=== PATIENT | female | born 1970 | race Caucasian/White ===

== ENCOUNTER → 2021-10-27 09:22 | Outpatient (BNVA) | payer OTHER, SELFPAY | PROVIDERS: PCP Nurse Practitioner Family; Visit Provider Nurse Practitioner Family | DX: J40 Bronchitis, not specified as acute or chronic (principal); R05.9 Cough, unspecified; R06.01 Orthopnea; R06.02 Shortness of breath | CPT/HCPCS: 71046; 80053 ==

== ENCOUNTER 2021-11-13 14:14 | Outpatient (CLI) | payer OTHER, SELFPAY ==
--- NOTE | 2021-11-13 14:18 | MM_ITS ---
WS: [id number] BILATERAL 3D TOMOSYNTHESIS DIGITAL SCREENING MAMMOGRAPHY WITH CAD CLINICAL INFORMATION: screening HISTORY: Screening mammogram. No current complaints. COMPARISON: None. TECHNIQUE: Bilateral CC and MLO views. FINDINGS: The breasts are composed of heterogeneous fibroglandular density tissue, which can limit the detectio n of small underlying mass lesions. Tiny diffuse punctate clustered and scattered calcifications midd le and anterior depth RIGHT breast with dense parenchymal tissue. Nodular dense parenchymal tissue wi th suggestion of architectural distortion upper quadrant RIGHT breast. Recommend further evaluation w ith diagnostic mammography and ultrasound. LEFT breast is unremarkable. MM/[place] [id number] IMPRESSION: BI-RADS: 0-Incomplete: Need additional imaging evaluation FOLLOW UP: Need Additional Imaging Recommend further evaluation with RIGHT breast diagnostic mammography with spot magnification views and ultrasound of the dense parenchymal tissue.
== END 2021-11-13 14:15 | disposition home or self-care (01) ==
PROVIDERS: PCP Nurse Practitioner Family; Visit Provider Nurse Practitioner Family
DX: Z12.31 Encounter for screening mammogram for malignant neoplasm of breast (principal)
CPT/HCPCS: 77063; 77067

== ENCOUNTER 2021-12-17 14:09 | Outpatient (CLI) | payer OTHER, SELFPAY ==
--- NOTE | 2021-12-17 14:20 | MM_ITS ---
WS: [id number] RIGHT 3D TOMOSYNTHESIS DIGITAL MAMMOGRAPHY WITH CAD CLINICAL INFORMATION: abnormal mammogram COMPARISON: November 13, 2021 TECHNIQUE: 3 views of the right breast were obtained. FINDINGS: Scattered fibroglandular densities of the right breast. Again seen are the tiny diffuse punctate clus tered and scattered calcifications middle and anteriore depth RIGHT breast. Punctate and amorphous ca lcifications anterior depth RIGHT breast upper outer quadrant. Additional faint clustered calcificati ons central RIGHT breast. Recommend stereotactic guided biopsy of the calcifications. The anterior depth upper outer quadrant c alcifications will probably be more accessible. This can be determined at the time of stereotactic lo calization. ULTRASOUND BREAST RIGHT TECHNIQUE: Ultrasound right breast focused area of concern. CLINICAL INFORMATION: abnormal mammogram FINDINGS: Ultrasound RIGHT breast at the 8 to 12:00 position. Dense underlying parenchymal tissue. No suspiciou s cystic or solid lesions. Incidental ductal ectasia deep to the areola. No suspicious ultrasound les ions to target for biopsy. MM/[place] [id number] IMPRESSION: BI-RADS: 4-Suspicious Finding-Biopsy Should Be Considered FOLLOW UP: Stereotactic Biopsy Recommended Recommend stereotactic guided biopsy calcifications upper outer quadrant anteri or depth RIGHT breast.
== END 2021-12-17 14:10 | disposition home or self-care (01) ==
LOC: RAD 14:09
PROVIDERS: PCP Nurse Practitioner Family; Visit Provider Nurse Practitioner Family
DX: R92.8 Other abnormal and inconclusive findings on diagnostic imaging of breast (principal); R92.1 Mammographic calcification found on diagnostic imaging of breast
CPT/HCPCS: 76642; 77061

== ENCOUNTER 2021-12-29 12:07 | Outpatient (CLI) | payer OTHER, SELFPAY ==
--- NOTE | 2021-12-29 12:29 | MM_ITS ---
WS: [id number] STEREOTACTIC RIGHT BREAST BIOPSY WITH VACUUM ASSISTANCE HISTORY: Calcifications upper outer quadrant. COMPARISON: 12/17/2021, 11/13/2021 and 07/22/2020 Procedure, risks and complications were explained to the patient. Medications and prior radiographs a re reviewed. RIGHT breast calcifications are located. Numerous calcifications are identified in the upper outer qu adrant of the RIGHT breast. The cluster of calcifications that is most concerning is targeted. Calcif ications are targeted in the craniocaudal projection. The skin is cleansed with ChloraPrep and anesth etized with 1% buffered lidocaine. Deeper soft tissues anesthetized with a combination of lidocaine a nd epinephrine. Small dermatome is made. Needle advanced into the RIGHT breast. Stereotactic imaging reveals appropriate positioning adjacent calcifications. Multiple vacuum-assisted core biopsies are o btained. No complications were encountered. Post biopsy specimen radiograph reveals numerous calcifications. Biopsy clip is placed in the cavity. Post imaging reveals good placement of the clip. No migration. Pressures held for approximately 15 minutes. No bleeding. Dressing applied. Patient discharged with n o complications. There is no bleeding. With any questions or complications patient is to return. MM/MM [place] vac assist [id number] IMPRESSION: 1. Uncomplicated RIGHT breast stereotactic biopsy. Calcifications which are mo st concerning in the RIGHT upper quadrant are targeted. 2. Specimen contains numerous calcifications. Pathology: Benign breast tissue with fibrocystic changes and usual ductal hyper plasia. Multiple foci of microcalcifications identified. No atypia or malignanc y. RECOMMENDATION: Diagnostic RIGHT mammogram follow-up in 6 months.
--- NOTE | 2021-12-29 12:29 | MM_ITS ---
WS: [id number] STEREOTACTIC RIGHT BREAST BIOPSY WITH VACUUM ASSISTANCE HISTORY: Calcifications upper outer quadrant. COMPARISON: 12/17/2021, 11/13/2021 and 07/22/2020 Procedure, risks and complications were explained to the patient. Medications and prior radiographs a re reviewed. RIGHT breast calcifications are located. Numerous calcifications are identified in the upper outer qu adrant of the RIGHT breast. The cluster of calcifications that is most concerning is targeted. Calcif ications are targeted in the craniocaudal projection. The skin is cleansed with ChloraPrep and anesth etized with 1% buffered lidocaine. Deeper soft tissues anesthetized with a combination of lidocaine a nd epinephrine. Small dermatome is made. Needle advanced into the RIGHT breast. Stereotactic imaging reveals appropriate positioning adjacent calcifications. Multiple vacuum-assisted core biopsies are o btained. No complications were encountered. Post biopsy specimen radiograph reveals numerous calcifications. Biopsy clip is placed in the cavity. Post imaging reveals good placement of the clip. No migration. Pressures held for approximately 15 minutes. No bleeding. Dressing applied. Patient discharged with n o complications. There is no bleeding. With any questions or complications patient is to return. MM/MM surgical specimen RT IMPRESSION: 1. Uncomplicated RIGHT breast stereotactic biopsy. Calcifications which are mo st concerning in the RIGHT upper quadrant are targeted. 2. Specimen contains numerous calcifications. Pathology: Benign breast tissue with fibrocystic changes and usual ductal hyper plasia. Multiple foci of microcalcifications identified. No atypia or malignanc y. RECOMMENDATION: Diagnostic RIGHT mammogram follow-up in 6 months.
== END 2021-12-29 12:08 | disposition home or self-care (01) ==
PROVIDERS: PCP Nurse Practitioner Family; Visit Provider Nurse Practitioner Family
DX: R92.1 Mammographic calcification found on diagnostic imaging of breast (principal); N62 Hypertrophy of breast
CPT/HCPCS: 19081; 88305; 88342; J7050

== ENCOUNTER 2022-02-10 13:26 | Outpatient (CLI) | payer OTHER, SELFPAY ==
--- NOTE | 2022-02-10 15:15 | USCV_ITS ---
Debbie Smith Age: 51 Gender: F : 1970 Exam Date: 02/10/2022 16:01 Ordering Phys: Alice Gomez MD ([email or web address]) Technologist: Sam Steward Exam Location: [facility] [place] Indication: SOB BP: 136 / 94 HR: 157 Rhythm: Atrial fibrillation Technical Quality: Technically difficult study MEASUREMENTS (Male / Female) Normal Values 2D ECHO LV Diastolic Diameter PLAX 3.2 cm 4.2 - 5.9 / 3.9 - 5.3 cm LV Systolic Diameter PLAX 2.9 cm IVS Diastolic Thickness 1.3 cm 0.6 - 1.0 / 0.6 - 0.9 cm IVS Systolic Thickness 1.5 cm LVPW Diastolic Thickness 1.7 cm 0.6 - 1.0 / 0.6 - 0.9 cm LVPW Systolic Thickness 1.6 cm LVOT Diameter 2.0 cm LV Ejection Fraction 2D Teich 23.8 % LV Ejection Fraction MOD 2C 18.5 % LV Ejection Fraction 2C AL 12.4 % LA Diameter 3.1 cm LA Width 3.3 cm LA Height 3.7 cm RA Width 3.1 cm RA Height 4.2 cm Aorta at Sinotubular Diameter 2.1 cm IVC Diameter 1.9 cm M-MODE Aortic Annulus Diameter 2.5 cm LA Ao Ratio MM 1.2 MV E Point Septal Separation 1.7 cm DOPPLER AV Peak Velocity 168.0 cm/s LVOT Peak Velocity 118.0 cm/s AV Area Cont Eq vti 2.2 cm squared AV Area Cont Eq pk 2.2 cm squared MV Peak Velocity 173.0 cm/s MV Area PHT 3.7 cm squared Mitral E to A Ratio 2.0 MV E' Velocity 67.5 cm/s Mitral E to MV E' Ratio 17.3 Mitral E to LV E' Lateral Ratio 17.1 Mitral E to LV E' Septal Ratio 17.6 TR Peak Velocity 287.6 cm/s TR Peak Gradient 33.1 mmHg TR Mean Velocity 233.3 cm/s TR Mean Gradient 23.5 mmHg TR Velocity Time Integral 73.5 cm Right Atrial Pressure 3.0 mmHg Pulmonary Artery Systolic Pressu 36.1 mmHg PV Peak Velocity 99.7 cm/s RV Acceleration Time 0.1 s RV Ejection Time 0.2 s RV AcT/ET 0.5 FINDINGS Left Ventricle Normal left ventricular cavity size. Severely decreased left ventricular systolic function. Left ventricular ejection fraction is estimated at 25-30 %. Global left ventricular hypokinesis. Interpretation limited by tachycardia during the study. Rhythm precludes evaluation of diastolic function. Right Ventricle Normal right ventricular size and systolic function. Right ventricular systolic pressure 20 mmHg. Right Atrium Normal right atrial size. Left Atrium Probably mildly increased left atrial size. Mitral Valve Moderate mitral annular calcification. Thickened mitral valve. Mild mitral valve regurgitation. Aortic Valve Aortic valve not well visualized. Mild aortic valve regurgitation. Tricuspid Valve Tricuspid valve not well visualized. Trace to mild tricuspid valve regurgitation. Pulmonic Valve Pulmonic valve not well visualized. No pulmonary valve stenosis. Trace pulmonary valve regurgitation. Pericardium No pericardial effusion. Aorta Aorta not well visualized. IVC Normal IVC dimension with >50% respiratory change of the inferior vena cava. CONCLUSIONS 1. This is a technically difficult study. 2. Normal left ventricular cavity size. Severely decreased left ventricular systolic function. Left ventricular ejection fraction is estimated at 25-30 %. Global left ventricular hypokinesis. Interpretation limited by tachycardia during the study. 3. Mild mitral valve regurgitation. 4. Mild aortic valve regurgitation. 5. No prior similar studies to compare. Alice Gomez MD (Electronically Signed) Final Date: 15 February 2022 11:04 S
--- NOTE | 2022-02-10 17:06 | ECG_ITS ---
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 Measurements Intervals [place] Rate: 157 P: 0 [place]: 0 QRS: -50 QRSD: 150 T: 95 QT: 291 QTc: 470 Interpretive Statements ATRIAL FIBRILLATION WITH RAPID VENTRICULAR RESPONSE INTRAVENTRICULAR CONDUCTION DELAY [130+ ms QRS DURATION] No previous ECG available for comparison Electronically Signed On 02-10-2022 18:05:13 TEXTILE DESIGNS SALES REPRESENTATIVE by Michael Valentine M.D. [email or web address] Messengermemorial hospital at stone countyVINTAGEHUBlima city hospitalARC Medical Devices/store/OM/[id number]
== END 2022-02-10 13:27 | disposition home or self-care (01) ==
PROVIDERS: PCP Nurse Practitioner Family; Visit Provider Internal Medicine Cardiovascular Disease
DX: R06.02 Shortness of breath (principal); R00.0 Tachycardia, unspecified; I08.0 Rheumatic disorders of both mitral and aortic valves
CPT/HCPCS: 93005; 93306; 94060; 94726; 94729; J7613

== ENCOUNTER 2022-03-08 12:40 | Emergency (ER) | payer OTHER, SELFPAY ==
[2022-03-08] VITALS (53 sets, daily range): BP systolic 121–155; BP diastolic 75–102; PULSE 100; RESP 14–19; TEMP 36.5; O2SAT 94–100; BMI 35.6
--- NOTE | 2022-03-08 13:15 | ECG_ITS ---
[facility] Test Date: 2022-03-08 Pat Name: Debbie Smith Department: Room: Gender: Female It Systems Manager: : 1970 Requested By: Alec Tariq Order Number: [id number] Ilana MD: Alice Gomez M.D. Measurements Intervals [place] Rate: 90 P: 0 ID: 0 QRS: -56 QRSD: 97 T: 87 QT: 403 QTc: 496 Interpretive Statements ATRIAL FLUTTER/TACHYCARDIA INCOMPLETE RIGHT BUNDLE BRANCH BLOCK [90+ ms QRS DURATION, TERMINAL R IN V1/V2, 40+ ms S IN I/aVL/V4/V5/V6] LEFT ANTERIOR FASCICULAR BLOCK [QRS AXIS <= -45, QR IN I, RS IN II] POSSIBLE ANTERIOR MYOCARDIAL INFARCTION , OF INDETERMINATE AGE [30 ms Q WAVE IN V3/V4, OR R < 0.2 mV IN V4] Compared to ECG 02/10/2022 17:41:34 Incomplete right bundle-branch block now present Left anterior fascicular block now present Myocardial infarct finding now present Atrial fibrillation no longer present Intraventricular conduction delay no longer present Electronically Signed On 03-08-2022 15:29:12 MANAGER APPLIED by Alice Gomez M.D. [email or web address] arms hospital.The NewsMarket/store/NU/[id number] f
--- NOTE | 2022-03-08 13:56 | XRR_ITS ---
PROCEDURE INFORMATION: Exam: XR Chest Exam date and time: 03/08/2022 2:22 PM Age: 52 years old Clinical indication: Chest pressure/pain. Shortness of breath. TECHNIQUE: Imaging protocol: Radiologic exam of the chest. Views: 1 view. COMPARISON: CR XR chest 2V* [id number] 10/27/2021 9:30 AM FINDINGS: Lungs: There is mild peribronchial wall thickening. No pulmonary consolidation. Pleural spaces: No pleural effusion. No pneumothorax. Heart/Mediastinum: A prosthetic cardiac valve is seen. The cardiac silhouette is unchanged. No gross evidence of pneumomediastinum. Diaphragm: Mild elevation of the right hemidiaphragm is similar to prior. Bones/joints: Median sternotomy wires are noted. No gross fracture. XR/XR chest 1V portable [id number] IMPRESSION: There is mild peribronchial wall thickening; query viral infection/bronchitis, chronic bronchitis and/or asthma.
--- NOTE | 2022-03-08 13:57 | ECG_ITS ---
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 Measurements Intervals [place] Rate: 98 P: 0 [place]: 0 QRS: -58 QRSD: 93 T: 90 QT: 380 QTc: 486 Interpretive Statements ATRIAL FLUTTER INCOMPLETE RIGHT BUNDLE BRANCH BLOCK [90+ ms QRS DURATION, TERMINAL R IN V1/V2, 40+ ms S IN I/aVL/V4/V5/V6] LEFT ANTERIOR FASCICULAR BLOCK [QRS AXIS <= -45, QR IN I, RS IN II] Compared to ECG 03/08/2022 12:59:05 Myocardial infarct finding no longer present Electronically Signed On 03-08-2022 15:28:24 SOCIETY EDITOR by Alice Gomez M.D. [email or web address]/store/[id number]
--- NOTE | 2022-03-08 13:58 | W.ED.CHESTPA ---
HPI - Chest Pain General: Chief Complaint: Chest Pain Stated Complaint: chest pressure, heart pt Time Seen by Provider: 03/08/22 13:35 History of Present Illness: Patient comes in with concerns for fatigue and chest pain. States that over the past few weeks she has had increasing weakness. States that anytime she gets up to do anything she becomes short of breath and has chest pain which she describes as a right-sided pressure. States that she was recently seen by cardiology and had an echo with a told her her ejection fraction was 25%. She denies any recent cold symptoms including no fever, cough, congestion. Associated symptoms: Reports dyspnea and palpitations; Deny abdominal pain, fever(s), nausea or vomiting Review of Systems Const: Denies: fever(s) or body aches Eyes: Denies: change in vision or blurry vision ENMT: Denies: throat pain or odynophagia Card: Reports: chest pain and palpitations Resp: Reports: dyspnea; Denies: productive cough GI: Denies: abdominal pain, nausea or vomiting : Denies: flank pain or dysuria Musc: Denies: neck pain or back pain Skin/Breast: Denies: rash or pruritus Neuro: Denies: headache(s) or numbness in extremities Psych: Denies: anxiety or change in appetite Endo: Denies: polyuria or excessive sweating PFSH ED PFSH: Medical History Diabetes mellitus Hyperlipidemia Surgical History H/O mitral valve repair (07/2017) History of cardiac radiofrequency ablation (12/2017) Family History Grandmother Myocardial infarction Other Cancer Diabetes Lung disease Social History Smoking and tobacco status: never smoked Household members: spouse Marital status: Current occupational status: employed Physical Exam Const: COMMON NORMALS: no acute distress, patient oriented x3, healthy appearing and alert HENMT: COMMON NORMALS: normocephalic and atraumatic HEAD & SCALP: normocephalic and atraumatic Eye: COMMON NORMALS: Equal, round and reactive pupils present and EOMs intact bilaterally PUPIL: Yes Equal, round and reactive pupils present Neck/C-Spine: COMMON NORMALS: full ROM and supple Resp: COMMON NORMALS: normal respiratory effort, No retractions and No use of accessory muscles Cardio: COMMON NORMALS: regular rate RATE: regular rate OTHER: regularly irregular rhythm GI: COMMON NORMALS: Normal to inspection, nondistended, normoactive bowel sounds present, Soft to palpation and non-tender PALPATION: Yes Soft to palpation Back/Pelvis: COMMON NORMALS: thoracic and lumbar spine normal to inspection and no thoracic nor lumbar tenderness Extremity: COMMON NORMALS: normal to inspection and full ROM Neuro: COMMON NORMALS: patient oriented x3 SENSORIUM/ORIENTATION: Yes alert Psych: COMMON NORMALS: mental status grossly normal and cooperative Skin: COMMON NORMALS: no rashes or lesions noted and no wounds GENERAL SKIN EXAM: no rashes or lesions noted Course Vital Signs: Vital signs: Vital Signs Temperature 97.7 F 03/08/22 12:47 Pulse Rate 100 03/08/22 12:47 Respiratory Rate 14 03/08/22 12:47 Blood Pressure 128/102 03/08/22 14:00 Pulse Oximetry 97 03/08/22 13:55 Oxygen Delivery Me thod 03/08/22 12:47 MDM - Chest Pain Medical Decision Making Patient comes in with concerns for fatigue and chest pain. States that over the past few weeks she has had increasing weakness. States that anytime she gets up to do anything she becomes short of breath and has chest pain which she describes as a right-sided pressure. States that she was recently seen by cardiology and had an echo with a told her her ejection fraction was 25%. She denies any recent cold symptoms including no fever, cough, congestion. We will check labs, EKG, x-ray, and reassess. On reassessment I talked to the patient about the test results. Will discharge home at this time with precautions return for worsening or changing symptoms. Lab Data 03/08/22 14:27 03/08/22 14:27 Radiology Impressions Chest X-Ray 03/08/22 13:56 IMPRESSION: There is mild peribronchial wall thickening; query viral infection/bronchitis, chronic bronchitis and/or asthma. Laboratory Results WBC 9.9 10^3/uL (4.0-10.0) 03/08/22 14:27 RBC 4.90 10^6/uL (4.1-5.3) 03/08/22 14: Hgb 12.4 g/dL (11.5-15.3) 03/08/22 14:27 Hct 40.1 % (37.0-47.0) 03/08/22 14:27 MCV 81.8 fl (81-99) 03/08/22 14:27 MCH 25.3 pg (28.0-34.0) L 03/08/22 14: MCHC 30.9 g/dL (30.0-36.0) 03/08/22 14: RDW 14.8 % (12.1-15.1) 03/08/22 14: Plt Count 277 10^3/cmm (130-400) 03/08/22 14: MPV 10.9 fL (7.4-10.4) H 03/08/22 14: Neut % (Auto) 63.3 % 03/08/22 14: Lymph % (Auto) 25.3 % 03/08/22 14:27 [place] % (Auto) 9.5 % 03/08/22 14:27 Eos % (Auto) 1.1 % 03/08/22 14: Baso % (Auto) 0.6 % 03/08/22 14: Neut # (Auto) 6.23 10^3/uL (1.8-7.7) 03/08/22 14:27 Lymph # (Auto) 2.5 10^3/uL (0.8-4.8) 03/08/22 14:27 [place] # (Auto) 0.9 10^3/uL (0.2-0.9) 03/08/22 14:27 Eos # (Auto) 0.1 10^3/uL (0.0-0.8) 03/08/22 14: Baso # (Auto) 0.1 10^3/uL (0.0-0.1) 03/08/22 14: Nucleated RBC % (auto) 0 % 03/08/22 14: Nucleated RBCs # 0.0 /100WBC 03/08/22 14:27 Sodium 137 mmol/L (136-145) 03/08/22 14:27 Potassium 4.4 mmol/L (3.5-5.1) 03/08/22 14:27 Chloride 101 mmol/L (98-107) 03/08/22 14:27 Carbon Dioxide 24 mmol/L (22-29) 03/08/22 14:27 Anion Gap 16.4 (5-19) 03/08/22 14:27 BUN 18 mg/dL (6-20) 03/08/22 14:27 Creatinine 0.8 mg/dL (0.5-0.9) 03/08/22 14:27 GFR Calculation 75.3 mL/min (90-130) L 03/08/22 14:27 Glucose 154 mg/dL (65-115) H 03/08/22 14:27 Calculated Osmolality 289 mOsm/kg (285-295) 03/08/22 14: Calcium 9.2 mg/dL (8.5-10.5) 03/08/22 14:27 Total Bilirubin 0.4 mg/dL (0.15-1.2) 03/08/22 14: AST 16 U/L (0-32) 03/08/22 14:27 ALT 16 U/L (0-33) 03/08/22 14:27 Alkaline Phosphatase 188 U/L (35-105) H 03/08/22 14:27 Troponin T Baseline 10 ng/L (0-10) 03/08/22 14:27 Troponin T 120 Minute 9.33 ng/L (0-10) 03/08/22 17:25 NT-Pro-B Natriuret Pep 825 pg/mL (0-125) H 03/08/22 14:27 Total Protein 6.7 g/dL (6.6-8.7) 03/08/22 14:27 Albumin 4.1 g/dL (3.5-5.2) 03/08/22 14:27 Globulin 2.6 g/dL (1.3-4.6) 03/08/22 14:27 Discharge Plan Discharge Patient Disposition: Home Clinical Impression: Chest pain on exertion Condition: Stable Prescriptions: No Action rosuvastatin [Crestor] 10 mg tablet 10 mg PO DAILY metformin 500 mg tablet 1,000 mg PO DAILY (DME) Dexcom G6 Rotary Saw Operator Misc See Rx Instructions .Route Rx Instructions: 120 units over 3 days (DME) Dexcom G6 Transmitter Device See Rx Instructions .Route Rx Instructions: As directed albuterol sulfate [ProAir HFA] 90 mcg/actuation HFA aerosol inhaler 2 puff inhalation QID PRN (Reason: shortness of breath or wheezing) Qty: 8.5 2RF diltiazem HCl 120 mg capsule,extended release 24 hr 240 mg PO DAILY acetaminophen [Tylenol] 325 mg tablet 325 mg PO QID PRN insulin lispro [Humalog U-100 Insulin] 100 unit/mL solution 100 unit SUBCUT DAILY budesonide-formoterol [Symbicort] 160-4.5 mcg/actuation HFA aerosol inhaler 2 puff inhalation BID PRN Eliquis 5 mg tablet 5 mg PO BID Qty: 180 3RF (DME) Omnipod 5 G6 Pods (Gen 5) Cartridge See Rx Instructions .Route Qty: 5 3RF Rx Instructions: As directed carvedilol 12.5 mg tablet 12.5 mg PO BID Qty: 60 6RF Rx Instructions: must administer with a meal/food Entresto 24-26 mg tablet 1 tab PO BID Qty: 60 6RF (DME) Dexcom G6 Sensor Device See Rx Instructions .Route Qty: 9 0RF Rx Instructions: As directed Discharge Orders: Discharge ED (Routine); Ordered 03/08/22 Ordered By: Aakash Almonte Referrals: Georgina Bonds NP [Primary Care Provider] - Patient Instructions: Chest Pain (ED) Coding Level of Care Code ED Personal Driver for Michaelg Fwd Exam Comprehensive
[2022-03-08 14:37] LABS: Basophils # 0.1 10^3/uL (0.0-0.1); Basophils % 0.6 %; Eosinophils # 0.1 10^3/uL (0.0-0.8); Eosinophils % 1.1 %; Hematocrit 40.1 % (37.0-47.0); Hemoglobin 12.4 g/dL (11.5-15.3); Lymphocytes # 2.5 10^3/uL (0.8-4.8); Lymphocytes % 25.3 %; Mean Corpuscular HGB Conc 30.9 g/dL (30.0-36.0); Mean Corpuscular Hemoglobin 25.3 pg (28.0-34.0); Mean Corpuscular Volume 81.8 fl (81-99); Mean Platelet Volume 10.9 fL (7.4-10.4); Monocytes # 0.9 10^3/uL (0.2-0.9); Monocytes % 9.5 %; Neutrophils # 6.23 10^3/uL (1.8-7.7); Neutrophils % 63.3 %; Nucleated Red Blood Cells % 0 %; Platelet Count 277 10^3/cmm (130-400); Red Cell Distribution Width 14.8 % (12.1-15.1); White Blood Count 9.9 10^3/uL (4.0-10.0)
[2022-03-08 15:02] LABS: Troponin(5th) Baseline 10 ng/L (0-10)
[2022-03-08 15:17] LABS: Alanine Aminotransferase 16 U/L (0-33); Albumin Level 4.1 g/dL (3.5-5.2); Alkaline Phosphatase 188 U/L (35-105); Anion Gap 16.4 (5-19); Aspartate Amino Transferase 16 U/L (0-32); Blood Urea Nitrogen 18 mg/dL (6-20); Calcium 9.2 mg/dL (8.5-10.5); Carbon Dioxide 24 mmol/L (22-29); Chloride 101 mmol/L (98-107); Globulin 2.6 g/dL (1.3-4.6); Glomerular Filtration Rate 75.3 mL/min (90-130); Glucose 154 mg/dL (65-115); Osmolality Calculated 289 mOsm/kg (285-295); Potassium 4.4 mmol/L (3.5-5.1); Sodium 137 mmol/L (136-145); Total Bilirubin 0.4 mg/dL (0.15-1.2); Total Protein 6.7 g/dL (6.6-8.7)
[2022-03-08 15:38] LABS: NT Pro B Type Natriuretic Pept 825 pg/mL (0-125)
[2022-03-08 17:57] LABS: Troponin 5 2HR 9.33 ng/L (0-10)
[2022-03-08 18:09] LABS: Troponin 5 2HR Delta -0.67 ABS# (0-10)
== END 2022-03-08 18:18 | disposition home or self-care (01) ==
PROVIDERS: Emergency Provider Emergency Medicine; PCP Nurse Practitioner Family
DX: R07.89 Other chest pain (principal); Z79.84 Long term (current) use of oral hypoglycemic drugs; Z79.01 Long term (current) use of anticoagulants; Z79.4 Long term (current) use of insulin; E11.9 Type 2 diabetes mellitus without complications; E78.5 Hyperlipidemia, unspecified
CPT/HCPCS: 36415; 71045; 80053; 83880; 84484; 85025; 93005; 99285

== ENCOUNTER 2022-03-18 15:26 | Inpatient (IN) | payer OTHER, SELFPAY ==
--- NOTE | 2022-03-18 15:59 | ECG_ITS ---
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 Measurements Intervals [place] Rate: 102 P: 0 VT: 0 QRS: -55 QRSD: 93 T: 88 QT: 394 QTc: 515 Interpretive Statements ATRIAL FLUTTER/TACHYCARDIA WITH RAPID VENTRICULAR RESPONSE INCOMPLETE RIGHT BUNDLE BRANCH BLOCK [90+ ms QRS DURATION, TERMINAL R IN V1/V2, 40+ ms S IN I/aVL/V4/V5/V6] LEFT ANTERIOR FASCICULAR BLOCK [QRS AXIS <= -45, QR IN I, RS IN II] POSSIBLE ANTERIOR MYOCARDIAL INFARCTION , OF INDETERMINATE AGE [30 ms Q WAVE IN V3/V4, OR R < 0.2 mV IN V4] Compared to ECG 03/08/2022 15:22:20 Myocardial infarct finding now present Electronically Signed On 03-18-2022 19:01:40 TRANSFORMER MECHANIC by Michael Valentine M.D. [email or web address].Notifomerit health wesleyYkonest. [facility].Who is Undercover [employer]/store/NU/[id number]
[2022-03-18 16:27] VITALS: BP 149/78; PULSE 102; RESP 15; TEMP 37.1; O2SAT 100
--- NOTE | 2022-03-18 16:31 | XRR_ITS ---
PROCEDURE INFORMATION: Exam: XR Chest Exam date and time: 03/18/2022 4:44 PM Age: 52 years old Clinical indication: Shortness of breath TECHNIQUE: Imaging protocol: Radiologic exam of the chest. Views: 1 view. COMPARISON: CR XR chest 1V portable [id number] 03/08/2022 2:22 PM FINDINGS: Lungs: See Heart/Mediastinum finding. Pleural spaces: Unremarkable. No pleural effusion. No pneumothorax. Heart/Mediastinum: Cardiomegaly and minimal pulmonary vascular congestion. Bones/joints: Sternotomy wires. XR/XR chest 1V portable [id number] IMPRESSION: Cardiomegaly and minimal pulmonary vascular congestion.
--- NOTE | 2022-03-18 16:36 | ECG_ITS ---
[facility] Test Date: 2022-03-19 Pat Name: Debbie Smith Department: Room: 105 Gender: Female Senior Category Manager: : 1970 Requested By: Alice Gomez Order Number: [id number] Ilana MD: Alice Gomez M.D. Interpretive Statements NAME OF STUDY: LEXISCAN SESTAMIBI STRESS TEST INDICATION: Exertional sob PROCEDURE: At the baseline, the blood pressure was 142/92 mm Hg with a heart rate of 101 bpm. The electrocardiogram showed atrial flutter with RVR, non specific ST-T wave changes. left axis deviation. Poor anterior R wave progression. ??? The Lexiscan was infused over a period of 20 seconds. A total of 0.4 milligrams of Lexiscan was infused. The stress phase was continued for a total of 5 minutes. Heart rate at the end of the stress phase was 101 bpm with a blood pressure of 125/79 mm Hg. The EKG at the peak infusion revealed no significant ST-T wave changes. The study was terminated due to protocol completion. ??? Sestamibi was injected 20 seconds after the Lexiscan infusion. ??? Blood pressure at the end of the recovery phase was 142/107 mm Hg with a heart rate of 101 beats per minute. ??? CONCLUSION: 1. No significant EKG changes with the] LexiScan infusion. 2. No LexiScan induced chest pain or cardiac arrhythmia. 3. Normal blood pressure and heart rate response. 4. Sestamibi/sestamibi perfusion scan pending; see separate report. Electronically Signed On 03-20-2022 8:58:20 PRESALES SENIOR SPECIALIST by Alice Gomez M.D. [email or web address].Mazoom/store/OM/[id number]
--- NOTE | 2022-03-18 17:14 | P.CONIM_ITS ---
Providers/Reason For Consult Consulting Physician/Specialty*: Dr. Gomez, Cardiology Reason for Consult*: symptomatic atrial flutter, SOB and chest pain Attending Physician: Alice Gomez MD Primary Care Provider: Georgina Bonds NP History of Present Illness History of Present Illness Debbie Smith is a 52 year old female with PMHx of HTN, HLD, IDDM, s/p mitral valve repair with Abreu Physio II 29 mm annuloplasty ring; left-sided MAZE, excision of left atrial appendage,? PFO closure on 08/12/2017, s/p typical and atypical atrial flutter ablation in 12/2017, cardiomyopathy (LVEF-45%; 05/2019--> ~30% in 01/2022); HTN, DM-2 x 20 years and HLD. She was noted to be in atrial flutter with RVR and echo showed cardiomyopathy with LVEF=25-30% on TDS study. Unfortunately, due to unavailability of bed, she has been waiting to get admitted for ALONSO/CV and sotalol initiation for last month. She also had ER visit on 03/08/22 with chest pain but was sent home. Finally, she is here today. Review of Systems Const: Denies: fever(s) or chills Eyes: Denies: change in vision Card: Reports: chest pain, lightheadedness and dyspnea on exertion; Denies: palpitations, swelling of feet/ankles or orthopnea Resp: Reports: dyspnea and non-productive cough; Denies: productive cough GI: Denies: abdominal pain, nausea or vomiting Musc: Denies: neck pain, back pain or joint pain Neuro: Denies: headache(s) or dizziness Psych: Denies: anxiety or depression Nickolas/Lymph: Reports: easy bruising and easy bleeding Medications/Allergies Home Medications Medication Instructions Recorded Confirmed Last Taken Type albuterol sulfate 90 mcg/actuation 2 puff inhalation QID PRN 10/26/21 03/19/22 Unknown Rx aerosol inhaler (ProAir HFA) shortness of breath or wheezing #8.5 grams blood-glucose meter,continuous 10/26/21 03/19/22 Unknown History (Dexcom G6 Oxygen Equipment Technician misc) blood-glucose transmitter (Dexcom 10/26/21 03/19/22 Unknown History G6 Transmitter device) rosuvastatin 10 mg tablet (Crestor) 10 mg PO QAM 10/26/21 03/19/22 Unknown History insulin lispro 100 unit/mL See Rx Instructions .Route .COMPLEX 12/08/21 03/19/22 Unknown History subcutaneous solution (Humalog U-100 Insulin) apixaban 5 mg tablet (Eliquis) 5 mg PO BID #180 tabs 02/16/22 03/19/22 Unknown Rx budesonide-formoterol HFA 160 2 puff inhalation BID PRN unknown 02/16/22 03/19/22 Unknown History mcg-4.5 mcg/actuation aerosol inhaler (Symbicort) insulin pump cart,automated,BT #5 ea 02/19/22 03/19/22 Unknown Rx (Omnipod 5 G6 Pods (Gen 5) subcutaneous cartridge) sacubitril 24 mg-valsartan 26 mg 1 tab PO BID #60 tabs 02/26/22 03/19/22 Unknown Rx tablet (Entresto) blood-glucose sensor (Dexcom G6 #9 ea 03/08/22 03/19/22 Unknown Rx Sensor device) furosemide 20 mg tablet 20 mg PO DAILY PRN edema #30 tabs 03/11/22 03/19/22 Unknown Rx potassium chloride 10 mEq 10 meq PO DAILY PRN use with lasix 03/11/22 03/19/22 Unknown Rx capsule,extended release #30 caps carvedilol 25 mg tablet 25 mg PO BID #180 tabs 03/18/22 03/19/22 Unknown Rx hydrochlorothiazide 25 mg tablet 25 mg PO DAILY PRN orthoppnea 03/18/22 03/19/22 Unknown History acetaminophen 500 mg tablet 1,000 mg PO Q6H PRN Pain 03/19/22 03/19/22 Unknown History metformin 1,000 mg tablet 1,000 mg PO BID 03/19/22 03/19/22 Unknown History Allergies Allergy/AdvReac Type Severity Reaction Status Date / Time vancomycin Allergy Severe ALGY-Anaphy Verified 03/19/22 09:10 laxis Penicillins Allergy ALGY-Anaphy Verified 03/19/22 09:10 laxis sitagliptin [From ] AdvReac Mild ALGY-Rash Verified 03/19/22 09:10 penicilliin Allergy Severe ALGY-Anaphy Uncoded 12/17/21 10:02 laxis Current Medications Acetaminophen (Acetaminophen 325 Mg Tablet) 650 mg PO Q6H PRN PRN Reason: Mild/Mod Pain Or Temp >/= 101 Last Admin: 03/19/22 13:57 Dose: 650 mg Al Hydrox/Mg Hydrox/Simethicone (Ipod-Rog-Qwqoolemp-Sher 30 Ml Udc) 15 ml PO Q6H PRN PRN Reason: INDIGESTION Aminophylline (Aminophylline 25 Mg/Ml Sdv 10 Ml) 25 mg IVP Q2M PRN PRN Reason: see dose instructions Stop: 03/20/22 07:14 Apixaban (Apixaban 5 Mg Tablet) 5 mg PO BID [facility] Last Admin: 03/19/22 09:00 Dose: 5 mg Atorvastatin Calcium (Atorvastatin 40 Mg Tablet) 10 mg PO BEDTIME CLAUDIA Last Admin: 03/18/22 21:02 Dose: 10 mg Benzonatate (Benzonatate 100 Mg Capsule) 200 mg PO TID PRN PRN Reason: COUGH Bisacodyl (Bisacodyl 5 Mg Tablet) 10 mg PO DAILY PRN; Protocol PRN Reason: Constipation (see protocol) Budesonide (Budesonide 0.5 Mg/2 Ml Neb) 0.25 mg INHALATION BID.RESPIRATORY CLAUDIA Last Admin: 03/18/22 19:53 Dose: 0.25 mg Furosemide (Furosemide 10 Mg/Ml Sdv 4ml) 40 mg IVP Q24H CLAUDIA Last Admin: 03/19/22 10:40 Dose: 40 mg Ipratropium [place] (Ipratropium 0.5 Mg/2.5 Ml Neb) 0.5 mg INHALATION Q6H.RESP CLAUDIA Levalbuterol HCl (Levalbuterol 0.63 Mg/3 Ml Neb) 0.63 mg INHALATION Q6H.RESP CLAUDIA Nitroglycerin (Nitroglycerin 0.4 Mg Sublingual Tablet) 0.4 mg SUBLINGUAL Q5M PRN PRN Reason: CHEST PAIN Stop: 03/20/22 07:14 Ondansetron HCl (Ondansetron 2 Mg/Ml Sdv 2 Ml) 4 mg IVP Q2M PRN PRN Reason: NAUSEA Last Admin: 03/19/22 07:36 Dose: 4 mg Sacubitril/Valsartan (Sacubitril/Valsartan 24-26 Mg Tablet) 1 each PO BID CLAUDIA Last Admin: 03/19/22 09:00 Dose: 1 each Sotalol HCl (Sotalol 80 Mg Tablet) 80 mg PO 0700 [facility] Sotalol HCl (Sotalol 80 Mg Tablet) 120 mg PO 1900 [facility] PFSH Acute PFSH: Medical History Diabetes mellitus Hyperlipidemia Surgical History H/O mitral valve repair (07/2017) History of cardiac radiofrequency ablation (12/2017) Family History Grandmother Myocardial infarction Other Cancer Diabetes Lung disease Social History Smoking and tobacco status: never smoked Household members: spouse Marital status: Current occupational status: employed Vitals/I&O/Wt Last Vital Signs Temp 98.7 F 03/18/22 16:27 Pulse 102 H 03/18/22 16:27 Resp 15 03/18/22 16:27 BP 149/78 03/18/22 16:27 Pulse Ox 100 03/18/22 16:27 Physical Exam 2 Narrative: GENERAL: obese woman sitting in bed in no acute distress HEENT: Extraocular movement intact. No pallor or icterus. NECK: central trachea, Mild JVD. No carotid bruit. CARDIOVASCULAR SYSTEM: S1-S2 regular. tachycardia+, No murmur or gallops. RESPIRATORY SYSTEM: Chest clear to auscultation except at bases. No wheezes rhonchi or rubs heard. No use of accessory muscles. tachypnea+ ABDOMEN: Soft, nontender and nondistended. Normal bowel sounds present. EXTREMITIES: No cyanosis, trace edema. No signs of chronic venous insufficiency. WATCH INSPECTOR FINAL MOVEMENT: Patient is alert oriented ?3. No focal neurological deficits. SKIN: Normal turgor and temperature. PSYCH: Normal insight and judgment. Data 03/19/22 03:44 03/19/22 03:44 Other data: #Cardiac catheterization? (10 Aug 2017) showed normal coronary arteries with EF of 45% and moderate to severe mitral valve regurgitation . #Patient underwent mitral valve repair on 12 August 2017 with Abreu Physio II 29 mm annuloplasty ring; left-sided maze utilizing Atricure RFA clamp; excision of left atrial appendage,? PFO closure by Dr. Chávez. #Transesophageal echocardiogram prior to ablation demonstrated LVEF of 60%, left atrial dilation of 4.2 cm.? Left atrial appendage surgically absent.? Remaining remnant base of left atrial appendage is without thrombus.? Mitral valve annuloplasty ring in good position.? Mitral valve repair intact with no significant residual MR.? Residual PFO versus atrial septal defect with [id number] shunting no significant pericardial effusion. #Patient underwent EP study for paroxysmal atrial flutter (17 December 2017 ) with PVI antral isolation, cavotricuspid isthmus ablation for typical atrial flutter; catheter ablation of atypical atrial flutter from left side of the interatrial septum; mapping of another atrial tachycardia with earliest atrial activation recorded from the noncoronary cusp of aortic root which could not be terminated with ablation. Following ablation procedure residual atrial tachycardia that could not be ablated was treated with sotalol 120 mg p.o. twice daily along with Cardizem CD 120 mg p.o. daily. #Transthoracic echocardiogram 18 May 2019: LVEF 45%, concentric remodeling of LV with pseudonormal LV filling pattern consistent with stage II diastolic dysfunction.? Mitral valve repair in good position with good function and trivial residual MR mild TR mild PI.? Right ventricular systolic function 30 mmHg. #CT chest with IV contrast 29 June 2019 showed tiny remnant of left atrial appendage.? No thrombus.? Based on this long-term oral anticoagulation was discontinued. Date of Service: 02/10/22 Procedure(s): CV. echo complete* [id number] ?CONCLUSIONS ?1. This is a technically difficult study. ?2. Normal left ventricular cavity size. Severely decreased left?ventricular s ystolic function. Left ventricular ejection ?fraction is estimated at 25-30 %. Global left ventricular?hypokinesis. Interpretation limited by tachycardia during the?study. ?3. Mild mitral valve regurgitation. ?4. Mild aortic valve regurgitation. ?5. No prior similar studies to compare. ?Alice Gomez MD? ?(Electronically Signed) A&P Assessment and plan (1) Atrial flutter: Symptomatic atypical atrial flutter -continue Eliquis -start on sotalol 80 mg BID -will uptitrate to 120 mg BID based on response -plan for ALONSO/CV on Tuesday -Outpatient referral to EP for atrial flutter ablation. (2) Cardiomyopathy: Normal coronaries in 2018 -given drop in LV function, I will set her up for stress test in morning -continue entresto, will consider uptitrating the dose based on BP and labs (3) Hyperlipidemia: (4) Diabetes mellitus: will defer to Dr. Martinez Plan H/o MV repair with ring annuloplasty s/p LA MAZE and JOSE MANUEL ligation s/p PFO closure Thank you for the consultation. Consult Attestations Time Spent in Patient Care: Greater than 35 minutes Coding Level of Care Code Acute Systems Integration Advisor for Joshua Fwd Diagnoses Atrial flutter I48.92 Cardiomyopathy I42.9 Hyperlipidemia E78.5 Diabetes mellitus E11.9
--- NOTE | 2022-03-18 17:17 | P.HP_ITS ---
Providers/Chief Complaint Admitting Physician: Alice Gomez MD Primary Care Provider: Georgina Bonds NP Chief Complaint: A fib on new medication History of Present Illness 51 year old female with PMHx of HTN, HLD, DM-2, s/p mitral valve repair with mitral valve ring 08/11/2017, s/p atrial fibrillation ablation in 12/2017, HTN, DM-2 x 20 years and HLD, was accepted as a direct admit for management of A- flutter, patient currently is scheduled for stress test tomorrow in the morning, she has been also started on sotalol With EKG 2 hours after each dose for monitoring of QTc interval. Other vitals have been reviewed. Review of Systems General: Reports: 10 or more systems reviewed and unremarkable except in HPI and below Const: Denies: fever(s), chills, body aches, change in appetite or diaphoresis Card: Denies: palpitations, edema, swelling of feet/ankles, dyspnea on exertion, orthopnea or leg pain with exertion Resp: Denies: dyspnea, productive cough, wheezing or pain on inspiration GI: Denies: abdominal pain, nausea, vomiting, diarrhea or constipation : Denies: flank pain Musc: Denies: back pain, extremity pain or extremity swelling Neuro: Denies: headache(s), difficulty walking or confusion Medications/Allergies Home Medications Medication Instructions Recorded Confirmed Last Taken Type albuterol sulfate 90 mcg/actuation 2 puff inhalation QID PRN 10/26/21 03/10/22 Unknown Rx aerosol inhaler (ProAir HFA) shortness of breath or wheezing #8.5 grams blood-glucose meter,continuous 10/26/21 03/10/22 Unknown History (Dexcom G6 Special Duty Nurse misc) blood-glucose transmitter (Dexcom 10/26/21 03/10/22 Unknown History G6 Transmitter device) metformin 500 mg tablet 1,000 mg PO DAILY 10/26/21 03/10/22 03/18/22 History 1000 mg rosuvastatin 10 mg tablet (Crestor) 10 mg PO DAILY 10/26/21 03/10/22 03/18/22 History insulin lispro 100 unit/mL 100 unit SUBCUT DAILY 12/08/21 03/10/22 03/18/22 History subcutaneous solution (Humalog U-100 Insulin) acetaminophen 325 mg tablet 325 mg PO QID PRN Pain 12/17/21 03/10/22 Unknown History (Tylenol) apixaban 5 mg tablet (Eliquis) 5 mg PO BID #180 tabs 02/16/22 03/10/22 Unknown Rx budesonide-formoterol HFA 160 2 puff inhalation BID PRN 02/16/22 03/10/22 Unknown History mcg-4.5 mcg/actuation aerosol inhaler (Symbicort) insulin pump cart,automated,BT #5 ea 02/19/22 03/10/22 Unknown Rx (Omnipod 5 G6 Pods (Gen 5) subcutaneous cartridge) sacubitril 24 mg-valsartan 26 mg 1 tab PO BID #60 tabs 02/26/22 03/10/22 03/18/22 Rx tablet (Entresto) blood-glucose sensor (Dexcom G6 #9 ea 03/08/22 03/10/22 Unknown Rx Sensor device) furosemide 20 mg tablet 20 mg PO DAILY PRN edema #30 tabs 03/11/22 Unknown Rx potassium chloride 10 mEq 10 meq PO DAILY PRN use with lasix 03/11/22 03/16/22 Rx capsule,extended release #30 caps albuterol sulfate 90 mcg/actuation 2 puff inhalation PRN PRN SOB 03/18/22 03/18/22 Unknown History aerosol inhaler carvedilol 25 mg tablet 25 mg PO BID #180 tabs 03/18/22 03/18/22 Rx 25 mg hydrochlorothiazide 25 mg tablet 25 mg PRN edema 03/18/22 Unknown History Allergies Allergy/AdvReac Type Severity Reaction Status Date / Time vancomycin Allergy Severe ALGY-Anaphy Verified 12/17/21 10:02 laxis sitagliptin [From Januvia] AdvReac Mild ALGY-Rash Verified 12/17/21 10:02 penicilliin Allergy Severe ALGY-Anaphy Uncoded 12/17/21 10:02 laxis PFSH Acute PFSH: Medical History Diabetes mellitus Hyperlipidemia Surgical History H/O mitral valve repair (07/2017) History of cardiac radiofrequency ablation (12/2017) Family History Grandmother Myocardial infarction Other Cancer Diabetes Lung disease Social History Smoking and tobacco status: never smoked Household members: spouse Marital status: Current occupational status: employed Vitals/I&O/Wt Last Vital Signs Temp 98.7 F 03/18/22 16:27 Pulse 102 H 03/18/22 16:27 Resp 15 03/18/22 16:27 BP 149/78 03/18/22 16:27 Pulse Ox 100 03/18/22 16:27 Physical Exam Const: COMMON NORMALS: patient oriented x3 HENMT: COMMON NORMALS: normocephalic and atraumatic HEAD & SCALP: normocephalic and atraumatic Resp: COMMON NORMALS: clear to auscultation bilaterally EFFORT & INSPECTION: Yes symmetric chest movement AUSCULTATION: clear to auscultation bilaterally Cardio: PERIPHERAL PULSES: Peripheral pulses 2+ throughout OTHER: Irregularly irregular rhythm S1-S2 variable intensity GI: COMMON NORMALS: Normal to inspection, nondistended, normoactive bowel sounds present, Soft to palpation, non-tender, No hepatosplenomegaly present and no masses AUSCULTATION: Yes normoactive bowel sounds PALPATION: Yes Soft to palpation and Yes No hepatosplenomegaly present RECTAL EXAM: deferred Extremity: COMMON NORMALS: no clubbing, cyanosis or edema and no pedal edema Neuro: COMMON NORMALS: patient oriented x3 A&P Assessment and plan (1) Atrial flutter: (2) Cardiomyopathy: (3) History of atrial fibrillation: (4) Diabetes mellitus: (5) Hyperlipidemia: (6) H/O mitral valve repair: (7) History of cardiac radiofrequency ablation: Plan 51 year old female with PMHx of HTN, HLD, DM-2, s/p mitral valve repair with mitral valve ring 08/11/2017, s/p atrial fibrillation ablation in 12/2017, HTN, DM-2 x 20 years and HLD, was accepted as a direct admit for management of A- flutter. Assessment: Symptomatic A.flutter Hypertension Diabetes Status post mitral valve repair S/p atrial fibrillation ablation in 2017 Diabetes Plan: Nuclear stress test tomorrow in the morning: To rule out any underlying coronary artery disease Continue sotalol Continue Entresto Continue budesonide inhaler Continue Eliquis for anticoagulation DuoNebs as needed She is scheduled for possible ALONSO cardioversion on Tuesday. CODE STATUS: Full code DVT prophylaxis not needed on Eliquis Attestations Medical Necessity Statement*: Patient needs to be in hospital for management of symptomatic a flutter, need for stress test.Anticipated length of stay greater than 2 midnights Coding Level of Care Code Acute Electrical Automation Engineer for g Fwd Exam Detailed Diagnoses Atrial flutter I48.92 Cardiomyopathy I42.9 History of atrial fibrillation Z86.79 Diabetes mellitus E11.9 Hyperlipidemia E78.5 H/O mitral valve repair Z98.890 History of cardiac radiofrequency ablation Z98.890
[2022-03-18] MEDS: sacubitril/valsartan 24-26 mg Tablet 1 EACH PO (17:42)
[2022-03-18] MEDS: apixaban 5 mg Tablet PO (17:42)
[2022-03-18 18:44] LABS: Basophils % 0.4 %; Eosinophils # 0.1 10^3/uL (0.0-0.8); Eosinophils % 1.1 %; Hematocrit 39.3 % (37.0-47.0); Hemoglobin 11.9 g/dL (11.5-15.3); Lymphocytes # 2.2 10^3/uL (0.8-4.8); Lymphocytes % 24.3 %; Mean Corpuscular HGB Conc 30.3 g/dL (30.0-36.0); Mean Corpuscular Hemoglobin 25.2 pg (28.0-34.0); Mean Corpuscular Volume 83.3 fl (81-99); Mean Platelet Volume 10.3 fL (7.4-10.4); Monocytes # 0.8 10^3/uL (0.2-0.9); Monocytes % 9.2 %; Neutrophils # 5.83 10^3/uL (1.8-7.7); Neutrophils % 64.7 %; Nucleated Red Blood Cells % 0 %; Platelet Count 256 10^3/cmm (130-400); Red Blood Count 4.72 10^6/uL (4.1-5.3); Red Cell Distribution Width 15.1 % (12.1-15.1)
[2022-03-18 19:14] LABS: Alanine Aminotransferase 17 U/L (0-33); Albumin Level 3.8 g/dL (3.5-5.2); Alkaline Phosphatase 181 U/L (35-105); Anion Gap 12.4 (5-19); Aspartate Amino Transferase 17 U/L (0-32); Blood Urea Nitrogen 15 mg/dL (6-20); Calcium 9.2 mg/dL (8.5-10.5); Carbon Dioxide 28 mmol/L (22-29); Chloride 106 mmol/L (98-107); Glomerular Filtration Rate 65.8 mL/min (90-130); Glucose 167 mg/dL (65-115); Magnesium 1.9 mg/dL (1.7-2.3); NT Pro B Type Natriuretic Pept 853 pg/mL (0-125); Osmolality Calculated 299 mOsm/kg (285-295); Potassium 4.4 mmol/L (3.5-5.1); Sodium 142 mmol/L (136-145); Total Bilirubin 0.5 mg/dL (0.15-1.2); Total Protein 6.8 g/dL (6.6-8.7)
[2022-03-18] MEDS: sotalol 80 mg Tablet PO (19:32)
[2022-03-18 19:35] VITALS: BP 143/91; PULSE 101; RESP 19; TEMP 36.7; O2SAT 100
[2022-03-18] MEDS: budesonide 0.5 mg/2 mL Neb 0.25 MG INHALATION (19:53)
[2022-03-18 19:54] VITALS: PULSE 102; RESP 12; O2SAT 99
[2022-03-18] MEDS: atorvastatin 40 mg Tablet 10 MG PO (21:02)
--- NOTE | 2022-03-18 21:37 | ECG_ITS ---
[facility] Test Date: 2022-03-18 Pat Name: Debbie Smith Department: Room: 105 Gender: Female Database Specialist: : 1970 Requested By: Alice Gomez Order Number: [id number] Ilana MD: Alice Gomez M.D. Measurements Intervals [place] Rate: 98 P: 120 MO: 122 QRS: -56 QRSD: 90 T: 83 QT: 363 QTc: 465 Interpretive Statements POSSIBLE ATRIAL FLUTTER/ ECTOPIC ATRIAL RHYTHM POSSIBLE RIGHT VENTRICULAR CONDUCTION DELAY [RSR (QR) IN V1/V2] LEFT ANTERIOR FASCICULAR BLOCK [QRS AXIS <= -45, QR IN I, RS IN II] NONSPECIFIC ST & T-WAVE ABNORMALITY Compared to ECG 03/18/2022 15:59:09 T-wave abnormality now present Atrial flutter no longer present Incomplete right bundle-branch block no longer present Myocardial infarct finding no longer present Electronically Signed On 03-19-2022 17:05:17 WALLPAPER HANGER by Alice Gomez M.D. [id number]
[2022-03-18 22:00] VITALS: PULSE 100
[2022-03-18 23:53] VITALS: BP 121/89; PULSE 100; RESP 16; TEMP 37.1; O2SAT 97
[2022-03-19] VITALS (13 sets, daily range): BP systolic 111–142; BP diastolic 78–107; PULSE 90–101; RESP 15–22; TEMP 36.8–37; O2SAT 93–100
[2022-03-19 04:20] LABS: Basophils # 0.1 10^3/uL (0.0-0.1); Basophils % 0.6 %; Eosinophils # 0.1 10^3/uL (0.0-0.8); Eosinophils % 0.7 %; Hematocrit 37.9 % (37.0-47.0); Hemoglobin 11.5 g/dL (11.5-15.3); Lymphocytes # 2.6 10^3/uL (0.8-4.8); Lymphocytes % 27.1 %; Mean Corpuscular HGB Conc 30.3 g/dL (30.0-36.0); Mean Corpuscular Hemoglobin 25.2 pg (28.0-34.0); Mean Corpuscular Volume 83.1 fl (81-99); Mean Platelet Volume 10.4 fL (7.4-10.4); Monocytes % 10.3 %; Neutrophils # 5.83 10^3/uL (1.8-7.7); Nucleated Red Blood Cells % 0 %; Platelet Count 265 10^3/cmm (130-400); Red Blood Count 4.56 10^6/uL (4.1-5.3); Red Cell Distribution Width 15.3 % (12.1-15.1); White Blood Count 9.6 10^3/uL (4.0-10.0)
[2022-03-19 04:39] LABS: INR 1.45 (0.8-1.2)
[2022-03-19 04:42] LABS: Estmated Average Glucose 237; Hemoglobin A1C 9.9 % (4.0-6.0)
[2022-03-19 04:50] LABS: Anion Gap 15.1 (5-19); Blood Urea Nitrogen 18 mg/dL (6-20); Calcium 8.7 mg/dL (8.5-10.5); Carbon Dioxide 23 mmol/L (22-29); Chloride 106 mmol/L (98-107); Cholesterol 102 mg/dL (0-200); Glomerular Filtration Rate 87.9 mL/min (90-130); Glucose 109 mg/dL (65-115); HDL Cholesterol 34 mg/dL (60-100); LDL Cholesterol Calculated 54 mg/dL (50-129); LDL HDL Ratio 1.59 RATIO (0.00-3.22); Osmolality Calculated 292 mOsm/kg (285-295); Potassium 4.1 mmol/L (3.5-5.1); Sodium 140 mmol/L (136-145); Triglycerides 71 mg/dL (0-150)
[2022-03-19 04:57] LABS: Thyroid Stimulating Hormone 5.11 uIU/mL (0.27-4.20)
[2022-03-19] MEDS: sotalol 80 mg Tablet PO (06:53)
[2022-03-19 07:21] LABS: T3 Free 3.5 PG/ML (2.0-4.4)
[2022-03-19] MEDS: ondansetron 2 mg/ML SDV 2 mL 4 MG IVP (07:36)
[2022-03-19] MEDS: regadenoson 0.4 Mg/5 ml Syringe IVP (07:37)
--- NOTE | 2022-03-19 08:55 | ECG_ITS ---
[facility] Test Date: 2022-03-19 Pat Name: Debbie Smith Department: Room: 105 Gender: Female Product Ambassador: : 1970 Requested By: Alice Gomez Order Number: [id number] Ilana MD: Alice Gomez M.D. Measurements Intervals [place] Rate: 96 P: 82 PA: 123 QRS: -42 QRSD: 97 T: 98 QT: 398 QTc: 505 Interpretive Statements ATRIAL FLUTTER/TACHYCARDIA LEFT AXIS DEVIATION [QRS AXIS < -30] INCOMPLETE RIGHT BUNDLE BRANCH BLOCK NONSPECIFIC T-WAVE ABNORMALITY Compared to ECG 03/18/2022 21:37:06 Left-axis deviation now present Incomplete right bundle-branch block now present Left anterior fascicular block no longer present T-wave abnormality still present Electronically Signed On 03-19-2022 17:03:11 CROSSING GATEMAN by Alice Gomez M.D. [id number]
[2022-03-19] MEDS: apixaban 5 mg Tablet PO ×2 (09:00→18:02)
[2022-03-19] MEDS: sacubitril/valsartan 24-26 mg Tablet 1 EACH PO ×2 (09:00→18:02)
--- NOTE | 2022-03-19 09:18 | PC.PHAR ---
pt states she takes care of her own medications-pt states she is still taking crestor 10mg daily states she had a build up ext med history shows last filled 07/06/21 90d/s-pt states she had a build of of metformin states was taking 2 tabs of 500mg bid states ran out of 500mg tabs and has been using 1000mg bid ext med history shows last filled 09/03/21 90d/s-notes are made in the pharmacy comments
[2022-03-19] MEDS: FUROsemide 10 mg/mL SDV 4mL 40 MG IVP (10:40)
--- NOTE | 2022-03-19 11:07 | PC.CHAP ---
Pastoral Care Encounter/Spiritual Assessment Type of Contact [] Declined manager regional visit [] Patient/Family/Request visit [] Outpatient visit [] Follow-up visit [] Physician referral [] Code/Alert [x] Routine visit [] Staff referral [] Actively dying [] Patient sleeping [] Family support [] [] Out of room [] Palliative care [] [] Receiving care in room [] Pre-surgical visit [] Trauma [] Long length of stay [] ICU visit [] Other: Relational/Emotional Strength [] Patient feels connected with others/family/visitors/staff [] Distress [] Loneliness/isolation [] Abandonment Spirituality of Patient [] Person of Amanda [] Attends Denominational of their Amanda [] Believes in Prayer [] Reads Bible or Christian materials [] There are Spiritual issues to be addressed Field Services Manager Interventions [x] Prayer [] Active listening [] Non-anxious presence [] Spiritual/emotional support [] Crisis/trauma care [] Spiritual counseling [] Bereavement support [] Provided bereavement packet [] Provided Bible/devotional materials [] Provided toy/stuffed animal, coloring book to patient or family member [] Provided Communion [] Anointing/[place] [] Salvation [x] Completed spiritual assessment [] Other: Impact on Illness or Injury [] Angry [] Fearful [] Anxious [] Often cries [] Exhaustion [] Unable to work [] Unable to attend scientology [] Unable to walk/stand [] Unable to read [] Unable to drive [] Unable to eat/drink [] Unable to sleep [] Unable to be with family [] Patient intubated [] Other: Summary Time spent with patient 5min
[2022-03-19] MEDS: acetaminophen 325 mg Tablet 650 MG PO (13:57)
--- NOTE | 2022-03-19 14:16 | P.PN_ITS ---
Subjective Subjective: She had stress test this morning Medications: Reviewed: Yes Vitals/I&O/Wt Last Vital Signs Temp 98.6 F 03/19/22 04:00 Pulse 99 03/19/22 13:02 Resp 20 H 03/19/22 13:02 BP 140/84 03/19/22 13:02 Pulse Ox 95 03/19/22 13:02 O2 Del Method 03/19/22 09:05 03/18/22 03/19/22 03/19/22 22:59 06:59 14:59 Intake Total 600 / 600 240 / 240 Output Total 450 / 450 Balance 600 / 600 -210 / -210 Weight last 48 hrs Weight 219 lb Physical Exam Narrative: GENERAL: obese woman sitting in bed in no acute distress HEENT: Extraocular movement intact. No pallor or icterus. NECK: central trachea, Mild JVD. No carotid bruit. CARDIOVASCULAR SYSTEM: S1-S2 regular. tachycardia+, No murmur or gallops. RESPIRATORY SYSTEM: Chest clear to auscultation except at bases. No wheezes rhonchi or rubs heard. No use of accessory muscles. tachypnea+ ABDOMEN: Soft, nontender and nondistended. Normal bowel sounds present. EXTREMITIES: No cyanosis, trace edema. No signs of chronic venous insufficiency. ADOBE CQ DEVELOPER: Patient is alert oriented ?3. No focal neurological deficits. SKIN: Normal turgor and temperature. PSYCH: Normal insight and judgment. Data 03/19/22 03:44 03/19/22 03:44 A&P Assessment and plan (1) Atrial flutter: Symptomatic atypical atrial flutter/atrial tachycardia -continue Eliquis -will uptitrate sotalol to 120 mg and 80 mg -plan for ALONSO/CV on Tuesday -Outpatient referral to EP for atrial flutter ablation. (2) Cardiomyopathy: Normal coronaries in 2018 -given drop in LV function, I will set her up for stress test in morning -continue entresto, will consider uptitrating the dose based on BP and labs -agree with iv lasix; may need another dose this evening. (3) Hyperlipidemia: (4) Diabetes mellitus: will defer to Dr. Martinez Plan H/o MV repair with ring annuloplasty s/p LA MAZE and JOSE MANUEL ligation s/p PFO closure Thank you for the consultation. Attestations Medical Necessity Statement*: needs hospital stay for symptomatic atrial flutter/tachycardia and sotalol monitoring. Time Spent in Patient Care: 16 - 35 minutes Coding Level of Care Code Acute Lithograph Designer for [facility] Imelda Diagnoses Atrial flutter I48.92 Cardiomyopathy I42.9 Hyperlipidemia E78.5 Diabetes mellitus E11.9
[2022-03-19] MEDS: potassium chloride ER 20 mEq Tablet PO (14:43)
[2022-03-19] MEDS: levalbuterol 0.63 mg/3 mL Neb INHALATION ×2 (14:43→19:56)
[2022-03-19] MEDS: ipratropium 0.5 mg/2.5 mL Neb INHALATION (14:43)
--- NOTE | 2022-03-19 16:36 | NMCV_ITS ---
NM nilson perf SPECT r/s* [id number] Debbie Smith Age: 52 Gender: F : 1970 Exam Date: 03/19/2022 06:53 Ordering Phys: Alice Gomez MD ([email or web address]) Technologist: BARB Gao Exam Location: [facility] Indications: CHEST PAIN, EXERTIONAL SHORTNESS OF BREATH STRESS TEST Please see separate stress test report in [facility] for full findings IMAGE PROTOCOL Rest/Stress 1 Lexiscan Day Radiopharmaceutical Dose (mCi) Administration Site Administered by Rest: Tc-99m 10.7 IV BARB Cedillo Sestamibi Stress:Tc-99m 32.6 IV BARB Cedillo Sestamibi Rest: 19-Mar-2022 60 Discovery 630 Stress: 19-Mar-2022 30 Discovery 630 0.4mg Lexiscan. Images obtained in supine and prone position. SPECT RESULTS Technical Quality: Excellent Raw Data Analysis: Motion artifact Image Corrections: No attenuation or motion correction applied Summed Stress Score: 1 Summed Rest Score: 0 Summed Difference Score: 1 PERFUSION FINDINGS SPECT images demonstrate homogeneous tracer distribution throughout the myocardium. FUNCTIONAL RESULTS (calculated via Gated SPECT) Stress Image LV EF (%): 36 Stress EDV (mL):121 TID: 1.09 Stress ESV (mL):78 FUNCTIONAL FINDINGS: The left ventricle is normal in size. Transient Ischemia Dilatation of 1.1. The left ventricular ejection fraction is moderately reduced with a value of 36%. There is moderately reduced left ventricular wall thickening. IMPRESSIONS 1. Myocardial perfusion imaging is normal. Attenuation artifact in apical wall. 2. The left ventricular ejection fraction is moderately reduced with a value of 36%. Moderate global hypokinesis. 3. The perfusion pattern is consistent with a non-ischemic cardiomyopathy. 4. EKG portion of the study will be reported separately. Alice Gomez MD (Electronically Signed) Final Date: 19 March 2022 09:56 S
[2022-03-19] MEDS: sotalol 80 mg Tablet 120 MG PO (18:02)
--- NOTE | 2022-03-19 19:48 | PM.PN ---
Subjective Subjective: Patient was seen and examined this morning she was complaining of some sob, xray chest is suggestive of pulmonary vascular congestion. She has stress test in am. Medications: Reviewed: Yes Medication Review Details: Generic Name Dose Route Start Last Admin Trade Name Freq PRN Reason Stop Dose Admin Acetaminophen 650 mg 03/18/22 16:24 03/19/22 13:57 Acetaminophen 32 5 Mg Tablet PO 650 mg Q6H PRN Administration Mild/Mod Pain Or Temp >/= 101 Apixaban 5 mg 03/18/22 18:00 03/19/22 18:02 Apixaban 5 Mg Ta blet PO 5 mg BID CLAUDIA Administration Atorvastatin Calci um 10 mg 03/18/22 21:00 03/18/22 21:02 Atorvastatin 40 Mg Tablet PO 10 mg BEDTIME CLAUDIA Administration Budesonide 0.25 mg 03/18/22 20:00 03/19/22 14:40 Budesonide 0.5 M g/2 Ml Neb INHALATION Not Given BID.RESPIRATORY S CH Furosemide 40 mg 03/19/22 10:30 03/19/22 10:40 Furosemide 10 Mg /Ml Sdv 4ml IVP 40 mg Q24H CLAUDIA Administration Levalbuterol HCl 0.63 mg 03/19/22 14:00 03/19/22 14:43 Levalbuterol 0.6 3 Mg/3 Ml Neb INHALATION 0.63 mg Q6H.RESP CLAUDIA Administration Ondansetron HCl 4 mg 03/19/22 07:15 03/19/22 07:36 Ondansetron 2 Mg /Ml Sdv 2 Ml IVP 4 mg Q2M PRN Administration NAUSEA Sacubitril/Valsart an 1 each 03/18/22 18:00 03/19/22 18:02 Sacubitril/Valsa rtan 24-26 Mg Tabl et PO 1 each BID CLAUDIA Administration Sotalol HCl 120 mg 03/19/22 19:00 03/19/22 18:02 Sotalol 80 Mg Ta blet PO 120 mg 1900 CLAUDIA Administration Vitals/I&O/Wt Last Vital Signs Temp 98.3 F 03/19/22 19:24 Pulse 95 03/19/22 19:24 Resp 18 03/19/22 19:24 BP 133/78 03/19/22 19:24 Pulse Ox 95 01/06/23 19:24 O2 Del Method 03/19/22 19:24 03/19/22 03/19/22 03/19/22 06:59 14:59 22:59 Intake Total 240 / 240 Output Total 950 / 950 580 / 1530 Balance -710 / -710 -580 / -1290 Weight last 48 hrs Weight 99.337 kg Physical Exam Const: COMMON NORMALS: patient oriented x3 HENMT: COMMON NORMALS: normocephalic and atraumatic HEAD & SCALP: normocephalic and atraumatic Resp: COMMON NORMALS: clear to auscultation bilaterally EFFORT & INSPECTION: Yes symmetric chest movement AUSCULTATION: clear to auscultation bilaterally Cardio: COMMON NORMALS: Peripheral pulses 2+ throughout PERIPHERAL PULSES: Peripheral pulses 2+ throughout OTHER: Irregularly irregular rhythm S1-S2 variable intensity GI: COMMON NORMALS: Normal to inspection, nondistended, normoactive bowel sounds present, Soft to palpation, non-tender, No hepatosplenomegaly present and no masses AUSCULTATION: Yes normoactive bowel sounds PALPATION: Yes Soft to palpation and Yes No hepatosplenomegaly present RECTAL EXAM: deferred Extremity: NARRATIVE EXTREMITY EXAM: 1+ B/L Pitting edema Neuro: COMMON NORMALS: patient oriented x3 Data 03/19/22 03:44 03/19/22 03:44 A&P Assessment and plan (1) Atrial flutter: (2) Cardiomyopathy: (3) History of atrial fibrillation: (4) Diabetes mellitus: (5) Hyperlipidemia: (6) H/O mitral valve repair: (7) History of cardiac radiofrequency ablation: Plan 51 year old female with PMHx of HTN, HLD, DM-2, s/p mitral valve repair with mitral valve ring 08/11/2017, s/p atrial fibrillation ablation in 12/2017, HTN, DM-2 x 20 years and HLD, was accepted as a direct admit for management of A- flutter. Assessment: Symptomatic A.flutter Mildly decompenstaed HFrEF Hypertension Diabetes Status post mitral valve repair S/p atrial fibrillation ablation in 2018 Diabetes Plan: Stress test:Myocardial perfusion imaging is normal. Continue sotalol Continue Entresto Continue budesonide inhaler Continue Eliquis for anticoagulation DuoNebs as needed On lasix 40 mg I.V Daily Monitor I/O Charting Monitor Electrolytes She is scheduled for possible ALONSO cardioversion on Tuesday. For her DM she is on insulin pump,monitor FSG. CODE STATUS: Full code DVT prophylaxis not needed on Eliquis Attestations Medical Necessity Statement*: Patient needs to be in hospital for the management heart failure. Time Spent in Patient Care: Greater than 35 minutes (>than 50% of time spent in counselling and/or direct pt care on unit). Coding Level of Care Code Acute Carpet Inspector Finished for g Fwd Diagnoses Atrial flutter I48.92 Cardiomyopathy I42.9 History of atrial fibrillation Z86.79 Diabetes mellitus E11.9 Hyperlipidemia E78.5 H/O mitral valve repair Z98.890 History of cardiac radiofrequency ablation Z98.890
[2022-03-19] MEDS: budesonide 0.5 mg/2 mL Neb 0.25 MG INHALATION (19:56)
--- NOTE | 2022-03-19 19:56 | ECG_ITS ---
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 Measurements Intervals [place] Rate: 93 P: 81 [place]: 163 QRS: -50 QRSD: 89 T: 100 QT: 296 QTc: 370 Interpretive Statements ATRIAL FLUTTER POSSIBLE RIGHT VENTRICULAR CONDUCTION DELAY [RSR (QR) IN V1/V2] LEFT ANTERIOR FASCICULAR BLOCK [QRS AXIS <= -45, QR IN I, RS IN II] NONSPECIFIC T-WAVE ABNORMALITY Compared to ECG 03/19/2022 08:56:03 Left anterior fascicular block now present Left-axis deviation no longer present Incomplete right bundle-branch block no longer present T-wave abnormality still present Electronically Signed On 03-20-2022 7:15:09 SPLITTING MACHINE OPERATOR by Alice Gomez M.D. [id number]
[2022-03-19] MEDS: benzonatate 100 mg Capsule 200 MG PO (20:49)
[2022-03-19] MEDS: atorvastatin 40 mg Tablet 10 MG PO (20:49)
[2022-03-20] VITALS (16 sets, daily range): BP systolic 131–147; BP diastolic 84–108; PULSE 65–95; RESP 13–21; TEMP 36.4–36.9; O2SAT 92–98
[2022-03-20] MEDS: levalbuterol 0.63 mg/3 mL Neb INHALATION ×4 (02:06→19:30)
[2022-03-20] MEDS: benzonatate 100 mg Capsule 200 MG PO (02:36)
[2022-03-20 05:48] LABS: Basophils # 0.1 10^3/uL (0.0-0.1); Basophils % 0.7 %; Eosinophils # 0.1 10^3/uL (0.0-0.8); Eosinophils % 1.1 %; Hematocrit 40.7 % (37.0-47.0); Hemoglobin 12.1 g/dL (11.5-15.3); Lymphocytes # 2.9 10^3/uL (0.8-4.8); Lymphocytes % 32.7 %; Mean Corpuscular HGB Conc 29.7 g/dL (30.0-36.0); Mean Corpuscular Hemoglobin 24.7 pg (28.0-34.0); Mean Corpuscular Volume 83.1 fl (81-99); Mean Platelet Volume 11.3 fL (7.4-10.4); Monocytes # 0.9 10^3/uL (0.2-0.9); Monocytes % 10.5 %; Neutrophils % 54.8 %; Nucleated Red Blood Cells % 0 %; Platelet Count 299 10^3/cmm (130-400); Red Cell Distribution Width 15.2 % (12.1-15.1); White Blood Count 8.9 10^3/uL (4.0-10.0)
[2022-03-20 06:10] LABS: Anion Gap 12.9 (5-19); Blood Urea Nitrogen 23 mg/dL (6-20); Calcium 9.1 mg/dL (8.5-10.5); Carbon Dioxide 29 mmol/L (22-29); Chloride 104 mmol/L (98-107); Glomerular Filtration Rate 58.2 mL/min (90-130); Glucose 93 mg/dL (65-115); Magnesium 2.1 mg/dL (1.7-2.3); Osmolality Calculated 297 mOsm/kg (285-295); Potassium 3.9 mmol/L (3.5-5.1); Sodium 142 mmol/L (136-145)
[2022-03-20] MEDS: sotalol 80 mg Tablet PO (06:14)
--- NOTE | 2022-03-20 08:04 | ANES.PREANE2 ---
Pre-Anesthetic Assessment Height/Weight: Height 1.65 m Weight 99.337 kg Temp Pulse Resp BP Pulse Ox O2 Del Method 98.5 F 92 16 143/88 95 03/20/22 07:14 03/20/22 07:14 03/20/22 07:14 03/20/22 07:14 03/20/22 07:14 03/20/22 03:56 ALONSO/cardioversion Familial anesthetic complications: none Was Beta Joceline taken within 24 hours: Yes Was Clonidine taken within 24 hours: N/A Social No alcohol and No tobacco Exam alert, oriented x 3, clear to auscultation bilaterally and regular rate & rhythm Airway Submandibular: within normal limits Cervical ROM: within normal limits Mallampati: Class II Dentition: partials CV/HEM Atrial Fibrillation (a.flutter s/p ablation) and Congestive Heart Failure Mitral valve repair Metabolic Diabetes Mellitus and Morbid Obesity Anesthetic Plan ASA status: 3 Anesthesia: MAC Medications/Allergies Home Medications Medication Instructions Recorded Confirmed Last Taken Type albuterol sulfate 90 mcg/actuation 2 puff inhalation QID PRN 10/26/21 03/19/22 Unknown Rx aerosol inhaler (ProAir HFA) shortness of breath or wheezing #8.5 grams blood-glucose meter,continuous 10/26/21 03/19/22 Unknown History (Dexcom G6 [place] Drill Operator misc) blood-glucose transmitter (Dexcom 10/26/21 03/19/22 Unknown History G6 Transmitter device) rosuvastatin 10 mg tablet (Crestor) 10 mg PO QAM 10/26/21 03/19/22 Unknown History insulin lispro 100 unit/mL See Rx Instructions .Route .COMPLEX 12/08/21 03/19/22 Unknown History subcutaneous solution (Humalog U-100 Insulin) apixaban 5 mg tablet (Eliquis) 5 mg PO BID #180 tabs 02/16/22 03/19/22 Unknown Rx budesonide-formoterol HFA 160 2 puff inhalation BID PRN unknown 02/16/22 03/19/22 Unknown History mcg-4.5 mcg/actuation aerosol inhaler (Symbicort) insulin pump cart,automated,BT #5 ea 02/19/22 03/19/22 Unknown Rx (Omnipod 5 G6 Pods (Gen 5) subcutaneous cartridge) sacubitril 24 mg-valsartan 26 mg 1 tab PO BID #60 tabs 02/26/22 03/19/22 Unknown Rx tablet (Entresto) blood-glucose sensor (Dexcom G6 #9 ea 03/08/22 03/19/22 Unknown Rx Sensor device) furosemide 20 mg tablet 20 mg PO DAILY PRN edema #30 tabs 03/11/22 03/19/22 Unknown Rx potassium chloride 10 mEq 10 meq PO DAILY PRN use with lasix 03/11/22 03/19/22 Unknown Rx capsule,extended release #30 caps carvedilol 25 mg tablet 25 mg PO BID #180 tabs 03/18/22 03/19/22 Unknown Rx hydrochlorothiazide 25 mg tablet 25 mg PO DAILY PRN orthoppnea 03/18/22 03/19/22 Unknown History acetaminophen 500 mg tablet 1,000 mg PO Q6H PRN Pain 03/19/22 03/19/22 Unknown History metformin 1,000 mg tablet 1,000 mg PO BID 03/19/22 03/19/22 Unknown History Allergies Allergy/AdvReac Type Severity Reaction Status Date / Time vancomycin Allergy Severe ALGY-Anaphy Verified 03/19/22 09:10 laxis Penicillins Allergy ALGY-Anaphy Verified 03/19/22 09:10 laxis sitagliptin [From [facility]] AdvReac Mild ALGY-Rash Verified 03/19/22 09:10 penicilliin Allergy Severe ALGY-Anaphy Uncoded 12/17/21 10:02 laxis Current Medications Generic Name Dose Route Start Last Admin Trade Name Freq PRN Reason Stop Dose Admin Acetaminophen 650 mg 03/18/22 16:24 03/19/22 13:57 Acetaminophen 325 Mg Tablet PO 650 mg Q6H PRN Administration Mild/Mod Pain Or Temp >/= 101 Apixaban 5 mg 03/18/22 18:00 03/19/22 18:02 Apixaban 5 Mg Tablet PO 5 mg BID CLAUDIA Administration Atorvastatin Calcium 10 mg 03/18/22 21:00 03/19/22 20:49 Atorvastatin 40 Mg Tablet PO 10 mg BEDTIME CLAUDIA Administration Benzonatate 200 mg 03/19/22 10:41 03/20/22 02:36 Benzonatate 100 Mg Capsule PO 200 mg TID PRN Administration COUGH Budesonide 0.25 mg 03/18/22 20:00 03/19/22 19:56 Budesonide 0.5 Mg/2 Ml Neb INHALATION 0.25 mg BID.RESPIRATORY CLAUDIA Administration Furosemide 40 mg 03/19/22 10:30 03/19/22 10:40 Furosemide 10 Mg/Ml Sdv 4ml IVP 40 mg Q24H CLAUDIA Administration Levalbuterol HCl 0.63 mg 03/19/22 14:00 03/20/22 02:06 Levalbuterol 0.63 Mg/3 Ml Neb INHALATION 0.63 mg Q6H.RESP CLAUDIA Administration Ondansetron HCl 4 mg 03/19/22 07:15 03/19/22 07:36 Ondansetron 2 Mg/Ml Sdv 2 Ml IVP 4 mg Q2M PRN Administration NAUSEA Sacubitril/Valsartan 1 each 03/18/22 18:00 03/19/22 18:02 Sacubitril/Valsartan 24-26 Mg Tablet PO 1 each BID CLAUDIA Administration Sotalol HCl 80 mg 03/20/22 07:00 03/20/22 06:14 Sotalol 80 Mg Tablet PO 80 mg 0700 CLAUDIA Administration Sotalol HCl 120 mg 03/19/22 19:00 03/19/22 18:02 Sotalol 80 Mg Tablet PO 120 mg 1900 CLAUDIA Administration PFSH Anesthesia Medical History Diabetes mellitus Hyperlipidemia Surgical History H/O mitral valve repair (07/2017) History of cardiac radiofrequency ablation (12/2017) Family History Grandmother Myocardial infarction Other Cancer Diabetes Lung disease Social History Smoking and tobacco status: never smoked Household members: spouse Marital status: Current occupational status: employed Data Anesthesia 03/20/22 03:23 03/20/22 03:23 Short CBC 03/18/22 03/19/22 03/20/22 Range/Units 18:32 03:44 03:23 WBC 9.0 9.6 8.9 (4.0-10.0) 10^3/uL Hgb 11.9 11.5 12.1 (11.5-15.3) g/dL Hct 39.3 37.9 40.7 (37.0-47.0) % MCV 83.3 83.1 83.1 (81-99) fl Plt Count 256 265 299 (130-400) 10^3/cmm Neut % (Auto) 64.7 61.0 54.8 % Neut # (Auto) 5.83 5.83 4.90 (1.8-7.7) 10^3/uL BMP 03/18/22 03/19/22 03/20/22 18:32 03:44 03:23 Sodium 142 140 142 Potassium 4.4 4.1 3.9 Chloride 106 106 104 Carbon Dioxide 28 23 29 BUN 15 18 23 H Creatinine 0.9 0.7 1.0 H Glucose 167 H 109 93 Calcium 9.2 8.7 9.1 Cardiac Enzymes 03/18/22 Range/Units 18:32 NT-Pro-B Natriuret Pep 853 H (0-125) pg/mL Liver Function 03/18/22 Range/Units 18:32 Total Bilirubin 0.5 (0.15-1.2) mg/dL AST 17 (0-32) U/L ALT 17 (0-33) U/L Alkaline Phosphatase 181 H (35-105) U/L Albumin 3.8 (3.5-5.2) g/dL Coags 03/19/22 03:44 PT 17.90 H INR 1.45 H Cardiac Studies: Echocardiogram 02/10/22 Sestamibi Stress Test (Cardiology) 03/18/22
[2022-03-20] MEDS: budesonide 0.5 mg/2 mL Neb 0.25 MG INHALATION ×2 (08:08→19:29)
--- NOTE | 2022-03-20 08:15 | ECG_ITS ---
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 Measurements Intervals [place] Rate: 94 P: 60 [place]: 132 QRS: -48 QRSD: 102 T: 78 QT: 429 QTc: 539 Interpretive Statements Possible atrial flutter with a high degree AV block LEFT ANTERIOR FASCICULAR BLOCK [QRS AXIS <= -45, QR IN I, RS IN II] NONSPECIFIC ST & T-WAVE ABNORMALITY PROLONGED QT INTERVAL Compared to ECG 03/19/2022 19:56:27 Prolonged QT interval now present Atrial flutter no longer present T-wave abnormality still present Electronically Signed On 03-21-2022 20:16:24 PROCESS CONTROL TECHNICIAN by Skip Victor M.D. [id number]
--- NOTE | 2022-03-20 09:02 | PM.PN ---
Subjective Subjective: Patient will have ALONSO/CV today Medications: Reviewed: Yes Medication Review Details: Current Medications Acetaminophen (Acetaminophen 325 Mg Tablet) 650 mg PO Q6H PRN PRN Reason: Mild/Mod Pain Or Temp >/= 101 Last Admin: 03/19/22 13:57 Dose: 650 mg Al Hydrox/Mg Hydrox/Simethicone (Oxdg-Pqx-Fokltpgij-Sher 30 Ml Udc) 15 ml PO Q6H PRN PRN Reason: INDIGESTION Apixaban (Apixaban 5 Mg Tablet) 5 mg PO BID [facility] Last Admin: 03/19/22 18:02 Dose: 5 mg Atorvastatin Calcium (Atorvastatin 40 Mg Tablet) 10 mg PO BEDTIME CLAUDIA Last Admin: 03/19/22 20:49 Dose: 10 mg Benzonatate (Benzonatate 100 Mg Capsule) 200 mg PO TID PRN PRN Reason: COUGH Last Admin: 03/20/22 02:36 Dose: 200 mg Bisacodyl (Bisacodyl 5 Mg Tablet) 10 mg PO DAILY PRN; Protocol PRN Reason: Constipation (see protocol) Budesonide (Budesonide 0.5 Mg/2 Ml Neb) 0.25 mg INHALATION BID.RESPIRATORY CLAUDIA Last Admin: 03/20/22 08:08 Dose: 0.25 mg Furosemide (Furosemide 10 Mg/Ml Sdv 4ml) 40 mg IVP Q24H CLAUDIA Last Admin: 03/19/22 10:40 Dose: 40 mg Sodium Chloride (Sodium Chloride 0.9%) 1,000 mls @ 30 mls/hr IV .Q24H CLAUDIA Levalbuterol HCl (Levalbuterol 0.63 Mg/3 Ml Neb) 0.63 mg INHALATION Q6H.RESP CLAUDIA Last Admin: 03/20/22 08:08 Dose: 0.63 mg Ondansetron HCl (Ondansetron 2 Mg/Ml Sdv 2 Ml) 4 mg IVP Q2M PRN PRN Reason: NAUSEA Last Admin: 03/19/22 07:36 Dose: 4 mg Sacubitril/Valsartan (Sacubitril/Valsartan 24-26 Mg Tablet) 1 each PO BID [facility] Last Admin: 03/19/22 18:02 Dose: 1 each Sotalol HCl (Sotalol 80 Mg Tablet) 80 mg PO 0700 CLAUDIA Last Admin: 03/20/22 06:14 Dose: 80 mg Sotalol HCl (Sotalol 80 Mg Tablet) 120 mg PO 1900 CLAUDIA Last Admin: 03/19/22 18:02 Dose: 120 mg Vitals/I&O/Wt Last Vital Signs Temp 98.5 F 03/20/22 07:14 Pulse 93 03/20/22 08:17 Resp 18 03/20/22 08:09 BP 143/88 03/20/22 07:14 Pulse Ox 98 03/20/22 08:09 O2 Del Method 03/20/22 08:09 O2 Flow Rate 2 03/20/22 08:09 03/19/22 03/20/22 03/20/22 22:59 06:59 14:59 Intake Total 240 / 480 Output Total 1080 / 2029 500 / 2530 Balance -840 / -1550 -500 / -2050 Weight last 48 hrs Weight 219 lb Physical Exam Narrative: GENERAL: obese woman sitting in bed in no acute distress HEENT: Extraocular movement intact. No pallor or icterus. NECK: central trachea, Mild JVD. No carotid bruit. CARDIOVASCULAR SYSTEM: S1-S2 regular, No murmur or gallops. RESPIRATORY SYSTEM: Chest clear to auscultation except at bases. No wheezes rhonchi or rubs heard. No use of accessory muscles. tachypnea+ ABDOMEN: Soft, nontender and nondistended. Normal bowel sounds present. EXTREMITIES: No cyanosis, trace edema. No signs of chronic venous insufficiency. 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 No focal neurological deficits. SKIN: Normal turgor and temperature. PSYCH: Normal insight and judgment. Data 03/20/22 03:23 03/20/22 03:23 A&P Assessment and plan (1) Atrial flutter: Symptomatic atypical atrial flutter/atrial tachycardia -continue Eliquis -will uptitrate sotalol to 120 mg BID -plan for ALONSO/CV today -Outpatient referral to EP for atrial flutter ablation. Risks and benefits were discussed with the patients. Possible complications including risk of esophageal perforation discussed with the patient as well. (2) Cardiomyopathy: Normal coronaries in 2018. No ischemia on stress test Tachycardia induced cardiomyopathy. -continue entresto, will consider uptitrating the dose based on BP and labs -will hold lasix today (3) Hyperlipidemia: (4) Diabetes mellitus: will defer management to Dr. Martinez Plan H/o MV repair with ring annuloplasty s/p LA MAZE and JOSE MANUEL ligation s/p PFO closure Thank you for the consultation. Attestations Medical Necessity Statement*: Needs hospital stay post cardioversion for medication management Time Spent in Patient Care: Greater than 35 minutes Critical Care Time: The high probability of a clinically significant, sudden or life threatening deterioration of the patient's [cardiac] system(s) required my full and direct attention, intervention and personal management. The critical care time is as shown. This time is in addition to time spent performing any reported procedures but includes the following: [x] Data and vital sign review and interpretation [x] Patient assessment, examination and intervention [x] Documentation [x] Medication orders and management Critical Care Time (min): 40 Procedures Time out/Consent Time Out Performed: Yes Consent for Procedure: Consent obtained from patient, Risks & Benefits reviewed and Agrees to proceed with procedure Procedure Narrative ALONSO Procedure note Indication: Symptomatic atrial flutter Sedation: Propofol by anesthesia Procedure was explained to the patient in detail and informed consent was obtained. Timeout was called. After achieving adequate sedation, the probe was inserted on first attempt. No blood on the probe post procedure. Prelim report: Severely decreased left ventricular systolic function. No left atrial or left atrial appendage mass or thrombus visualized. No ASD or PFO identified. Full report to follow. Cardioversion procedure note. Indication: Symptomatic atrial flutter Anticoagulation: Eliquis Sedation: Propofol by anesthesia After ensuring no left atrial/left atrial appendage thrombus, pads were placed myke-posteriorly. She received 150 J of synchronized biphasic shock ?1 with pentecostal of rhythm to sinus bradycardia. Patient tolerated the procedure well. Recovery: In unit Coding Level of Care Code Acute Plant Puller for [facility] Fwd Diagnoses Atrial flutter I48.92 Cardiomyopathy I42.9 Hyperlipidemia E78.5 Diabetes mellitus E11.9
[2022-03-20] MEDS: sodium chloride 0.9% 1,000 ML 30 ML IV (09:09)
[2022-03-20] MEDS: sacubitril/valsartan 24-26 mg Tablet 1 EACH PO ×2 (09:09→19:05)
[2022-03-20] MEDS: apixaban 5 mg Tablet PO ×2 (09:10→19:03)
--- NOTE | 2022-03-20 11:17 | ECG_ITS ---
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 Measurements Intervals [place] Rate: 86 P: 0 [place]: 0 QRS: -66 QRSD: 93 T: 70 QT: 442 QTc: 530 Interpretive Statements SUPRAVENTRICULAR RHYTHM LEFT ANTERIOR FASCICULAR BLOCK [QRS AXIS <= -45, QR IN I, RS IN II] NONSPECIFIC ST & T-WAVE ABNORMALITY PROLONGED QT INTERVAL Compared to ECG 03/20/2022 08:01:17 Supraventricular rhythm now present Sinus rhythm no longer present T-wave abnormality still present Electronically Signed On 03-21-2022 20:16:51 PAD TUFTER by Skip Victor M.D. [id number]
--- NOTE | 2022-03-20 11:21 | ANE.PACU2 ---
Inpatient post-anesthesia follow up: Airway intact: Yes Vital signs: Temperature 98.5 F Pulse Rate 93 Respiratory Rate 18 Blood Pressure 143/88 Pulse Oximetry 98 Oxygen Delivery Me thod Nasal Cannula Oxygen Flow Rate 2 Fraction of Inspir ed Oxygen Hydration adequate: Yes Nausea and vomiting: No Pain level: 1 Mental status: Baseline
[2022-03-20] MEDS: sotalol 80 mg Tablet 40 MG PO (11:42)
--- NOTE | 2022-03-20 13:06 | PC.NURSE ---
transesophageal echocardiogram and cardioversion performed by Spear[employer]ysh tech and dr schultz with anesthesia present at 1050.cardioverted at 150 joules.concerted to nsr.vss.pt quickly awoke from mac anesthesia.no swallow issues noted.pt tolerated procedure well.
--- NOTE | 2022-03-20 16:36 | P.PN_ITS ---
Subjective Subjective: Patient was seen and examined this morning, robust urine output to IV Lasix, serum creatinine is slightly trended up to 1, BUN is also slightly higher as compared to yesterday, will hold Lasix today. S/p ALONSO cardioversion: Medications: Reviewed: Yes Medication Review Details: Generic Name Dose Route Start Last Admin Trade Name Freq PRN Reason Stop Dose Admin Acetaminophen 650 mg 03/18/22 16:24 03/19/22 13:57 Acetaminophen 32 5 Mg Tablet PO 650 mg Q6H PRN Administration Mild/Mod Pain Or Temp >/= 101 Apixaban 5 mg 03/18/22 18:00 03/20/22 09:10 Apixaban 5 Mg Ta blet PO 5 mg BID CLAUDIA Administration Atorvastatin Calci um 10 mg 03/18/22 21:00 03/19/22 20:49 Atorvastatin 40 Mg Tablet PO 10 mg BEDTIME CLAUDIA Administration Benzonatate 200 mg 03/19/22 10:41 03/20/22 02:36 Benzonatate 100 Mg Capsule PO 200 mg TID PRN Administration COUGH Budesonide 0.25 mg 03/18/22 20:00 03/20/22 08:08 Budesonide 0.5 M g/2 Ml Neb INHALATION 0.25 mg BID.RESPIRATORY S CH Administration Furosemide 40 mg 03/19/22 10:30 03/19/22 10:40 Furosemide 10 Mg /Ml Sdv 4ml IVP 40 mg Q24H CLAUDIA Administration Sodium Chloride 1,000 mls @ 30 ml s/hr 03/20/22 08:00 03/20/22 09:09 Sodium Chloride 0.9% IV 30 mls/hr .Q24H CLAUDIA Administration Levalbuterol HCl 0.63 mg 03/19/22 14:00 03/20/22 13:11 Levalbuterol 0.6 3 Mg/3 Ml Neb INHALATION 0.63 mg Q6H.RESP CLAUDIA Administration Ondansetron HCl 4 mg 03/19/22 07:15 03/19/22 07:36 Ondansetron 2 Mg /Ml Sdv 2 Ml IVP 4 mg Q2M PRN Administration NAUSEA Sacubitril/Valsart an 1 each 03/18/22 18:00 03/20/22 09:09 Sacubitril/Valsa rtan 24-26 Mg Tabl et PO 1 each BID CLAUDIA Administration Sotalol HCl 120 mg 03/19/22 19:00 03/19/22 18:02 Sotalol 80 Mg Ta blet PO 120 mg 1900 CLAUDIA Administration Vitals/I&O/Wt Last Vital Signs Temp 98.5 F 03/20/22 07:14 Pulse 65 03/20/22 13:16 Resp 17 03/20/22 13:16 BP 143/88 03/20/22 07:14 Pulse Ox 96 03/20/22 13:12 O2 Del Method 03/20/22 13:12 O2 Flow Rate 2 03/20/22 08:09 03/20/22 03/20/22 03/20/22 06:59 14:59 22:59 Output Total 500 / 2530 200 / 200 Balance -500 / -2050 -200 / -200 Physical Exam Const: COMMON NORMALS: patient oriented x3 HENMT: COMMON NORMALS: normocephalic and atraumatic HEAD & SCALP: normocephalic and atraumatic Resp: COMMON NORMALS: clear to auscultation bilaterally EFFORT & INSPECTION: Yes symmetric chest movement AUSCULTATION: clear to auscultation bilaterally OTHER: Diminished air entry bilaterally Cardio: COMMON NORMALS: Peripheral pulses 2+ throughout PERIPHERAL PULSES: Peripheral pulses 2+ throughout OTHER: Irregularly irregular rhythm S1-S2 variable intensity GI: COMMON NORMALS: Normal to inspection, nondistended, normoactive bowel sounds present, Soft to palpation, non-tender, No hepatosplenomegaly present and no masses AUSCULTATION: Yes normoactive bowel sounds PALPATION: Yes Soft to palpation and Yes No hepatosplenomegaly present RECTAL EXAM: deferred Extremity: COMMON NORMALS: no clubbing, cyanosis or edema and no pedal edema NARRATIVE EXTREMITY EXAM: 1+ B/L Pitting edema Neuro: COMMON NORMALS: patient oriented x3 Data 03/20/22 03:23 03/20/22 03:23 A&P Assessment and plan (1) Atrial flutter: (2) Cardiomyopathy: (3) History of atrial fibrillation: (4) Diabetes mellitus: (5) Hyperlipidemia: (6) H/O mitral valve repair: (7) History of cardiac radiofrequency ablation: Plan 51 year old female with PMHx of HTN, HLD, DM-2, s/p mitral valve repair with mitral valve ring 08/11/2017, s/p atrial fibrillation ablation in 12/2017, HTN, DM-2 x 20 years and HLD, was accepted as a direct admit for management of A- flutter. Assessment: Symptomatic A.flutter: Status post ALONSO cardioversion. Decompenstaed HFrEF Tachycardia induced cardiomyopathy: Normal CAG in 2017, nuclear stress test normal (2022) Hypertension Diabetes H/o MV repair with ring annuloplasty s/p LA MAZE and JOSE MANUEL ligation s/p PFO closure S/p atrial fibrillation ablation in 2017 Plan: Stress test:Myocardial perfusion imaging is normal. Continue sotalol Continue Entresto Continue budesonide inhaler Continue Eliquis for anticoagulation DuoNebs as needed Was On lasix 40 mg I.V Daily, currently on hold. Monitor I/O Charting Monitor Electrolytes S/p ALONSO cardioversion : Sinus bradycardia. For her DM she is on insulin pump,monitor FSG. Cardiology on board CODE STATUS: Full code DVT prophylaxis not needed on Eliquis Attestations Medical Necessity Statement*: Patient needs to be in hospital for sotalol dose titration, EKG monitoring. 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
--- NOTE | 2022-03-20 16:39 | USCV_ITS ---
Debbie Smith Age: 52 Gender: F : 1970 Exam Date: 03/20/2022 10:46 Ordering Phys: Alice Gomez MD [email or web address]) Technologist: JAIRO Exam Location: [facility] – [place] Indication: Symptomatic atrial flutter BP: / HR: Rhythm: Atrial flutter Technical Quality: Adequate MEASUREMENTS (Male / Female) Normal Values DOPPLER TR Peak Velocity 267.7 cm/s TR Peak Gradient 28.7 mmHg Medications Patient given IV sedation by anesthesia service, for details please refer to the anesthesia report. Complications Patient tolerated procedure well. Proc. Components The ALONSO probe was passed into the posterior pharynx , mid- esophagus, distal esophagus, and gastric fundus. FINDINGS Left Ventricle Normal left ventricular cavity size. Severely decreased left ventricular systolic function. Left ventricular ejection fraction is estimated at 25 %. Severe global left ventricular hypokinesis. Right Ventricle Normal right ventricular size. Low normal right ventricular systolic function. Right Atrium Moderately increased right atrial size. Left Atrium Moderately increased left atrial size. LA Appendage Small left atrial appendage. No thrombus visualized in the left atrial appendage. IA Septum Normal interatrial septum. No residual patent foramen ovale or ASD by agitated saline study. Mitral Valve s/p mitral valve annuloplasty ring repair. Thickened mitral valve. No mitral valve stenosis. Trace mitral valve regurgitation. Aortic Valve Structurally normal trileaflet aortic valve. No aortic valve stenosis. Trace aortic valve regurgitation. Tricuspid Valve Structurally normal tricuspid valve. No tricuspid valve stenosis. Moderate to severe tricuspid valve regurgitation. Pulmonic Valve Structurally normal pulmonic valve. No pulmonary valve stenosis. Trace pulmonary valve regurgitation. Pericardium No pericardial effusion. Aorta Normal size aortic root and proximal ascending aorta. CONCLUSIONS 1. Normal left ventricular cavity size. Severely decreased left ventricular systolic function. Left ventricular ejection fraction is estimated at 25 %. Severe global left ventricular hypokinesis. 2. S/p mitral valve annuloplasty ring repair. Trace mitral valve regurgitation. 3. No residual patent foramen ovale or ASD by agitated saline study. 4. No LA/JOSE MANUEL thrombus. Alice Gomez MD (Electronically Signed) Final Date: 29 March 2022 09:18 S
[2022-03-20] MEDS: sotalol 80 mg Tablet 120 MG PO (19:03)
[2022-03-20] MEDS: atorvastatin 40 mg Tablet 10 MG PO (20:34)
--- NOTE | 2022-03-20 20:57 | ECG_ITS ---
[facility] Test Date: 2022-03-20 Pat Name: Debbie Smith Department: Room: 105 Gender: Female Manager Sign: : 1970 Requested By: Alice Gomez Order Number: [id number] Ilana MD: Skip Victor M.D. Measurements Intervals [place] Rate: 90 P: 0 TN: 0 QRS: -45 QRSD: 115 T: 72 QT: 405 QTc: 498 Interpretive Statements SUPRAVENTRICULAR RHYTHM PATTERN CONSISTENT WITH PULMONARY DISEASE INCOMPLETE RIGHT BUNDLE BRANCH BLOCK [90+ ms QRS DURATION, TERMINAL R IN V1/V2, 40+ ms S IN I/aVL/V4/V5/V6] LEFT ANTERIOR FASCICULAR BLOCK [QRS AXIS <= -45, QR IN I, RS IN II] NONSPECIFIC T-WAVE ABNORMALITY Compared to ECG 03/20/2022 11:17:34 Incomplete right bundle-branch block now present Prolonged QT interval no longer present T-wave abnormality still present Electronically Signed On 03-21-2022 20:18:28 BACON SLICER by Skip Victor M.D. [id number]
[2022-03-21 03:38] VITALS: BP 137/97; PULSE 88; RESP 17; TEMP 36.6; O2SAT 99
[2022-03-21 05:46] VITALS: PULSE 42
[2022-03-21 06:28] LABS: Basophils # 0.1 10^3/uL (0.0-0.1); Basophils % 0.6 %; Eosinophils # 0.1 10^3/uL (0.0-0.8); Eosinophils % 0.6 %; Hematocrit 37.8 % (37.0-47.0); Hemoglobin 11.6 g/dL (11.5-15.3); Lymphocytes # 2.9 10^3/uL (0.8-4.8); Lymphocytes % 29.1 %; Mean Corpuscular HGB Conc 30.7 g/dL (30.0-36.0); Mean Corpuscular Hemoglobin 25.3 pg (28.0-34.0); Mean Corpuscular Volume 82.5 fl (81-99); Mean Platelet Volume 10.3 fL (7.4-10.4); Monocytes % 9.5 %; Neutrophils # 6.03 10^3/uL (1.8-7.7); Nucleated Red Blood Cells % 0 %; Platelet Count 259 10^3/cmm (130-400); Red Blood Count 4.58 10^6/uL (4.1-5.3); Red Cell Distribution Width 15.2 % (12.1-15.1); White Blood Count 10.1 10^3/uL (4.0-10.0)
[2022-03-21 06:59] LABS: Anion Gap 15.2 (5-19); Blood Urea Nitrogen 23 mg/dL (6-20); Calcium 8.4 mg/dL (8.5-10.5); Carbon Dioxide 24 mmol/L (22-29); Chloride 103 mmol/L (98-107); Glomerular Filtration Rate 75.3 mL/min (90-130); Glucose 102 mg/dL (65-115); Magnesium 2.1 mg/dL (1.7-2.3); Osmolality Calculated 290 mOsm/kg (285-295); Potassium 4.2 mmol/L (3.5-5.1); Sodium 138 mmol/L (136-145)
--- NOTE | 2022-03-21 07:00 | P.DS_ITS ---
Discharge Providers Date of Admission: 03/18/22 15:26 Date of Discharge: March 21, 2022 Attending Provider at Admission: Alice Gomez MD Attending Provider at Discharge: Alice Gomez MD Primary Care Provider: Georgina Bonds NP Diagnoses at Discharge Discharge Diagnosis (1) Atrial flutter: Status: Acute (2) Cardiomyopathy: Status: Acute (3) History of atrial fibrillation: Status: Deleted (4) Diabetes mellitus: Status: Acute (5) Hyperlipidemia: Status: Acute (6) H/O mitral valve repair: Status: Inactive (7) History of cardiac radiofrequency ablation: Status: Inactive Reason for Visit Reason for Visit: A fib on new medication Hospital Course Hospital Course 51 year old female with PMHx of HTN, HLD, DM-2, s/p mitral valve repair with mitral valve ring 08/11/2017, s/p atrial fibrillation ablation in 12/2017, HTN, DM-2 x 20 years and HLD, she was admitted for the management of symptomatic A- flutter.she was started on sotolol and underwent ALONSO Cardioversion,she converted to Sinus bradycardia and later was in ectopic atrial rthym with intermittent sinus bradycardia.she was also managed for mildly decompensated heart failure received I.V lasix with good urine output,and was later discharged on on home lasix regimen.She was discharged in stable condition to home.She rickey continue to follow cardiology as outpatient. Physical Exam Const: COMMON NORMALS: patient oriented x3 HENMT: COMMON NORMALS: normocephalic and atraumatic HEAD & SCALP: normocephalic and atraumatic Resp: COMMON NORMALS: clear to auscultation bilaterally EFFORT & INSPECTION: Yes symmetric chest movement AUSCULTATION: clear to auscultation bilaterally OTHER: Diminished air entry bilaterally Cardio: COMMON NORMALS: Peripheral pulses 2+ throughout PERIPHERAL PULSES: Peripheral pulses 2+ throughout OTHER: Irregularly irregular rhythm S1-S2 variable intensity GI: COMMON NORMALS: Normal to inspection, nondistended, normoactive bowel sounds present, Soft to palpation, non-tender, No hepatosplenomegaly present and no masses AUSCULTATION: Yes normoactive bowel sounds PALPATION: Yes Soft to palpation and Yes No hepatosplenomegaly present RECTAL EXAM: deferred Extremity: COMMON NORMALS: no clubbing, cyanosis or edema and no pedal edema NARRATIVE EXTREMITY EXAM: 1+ B/L Pitting edema Neuro: COMMON NORMALS: patient oriented x3 Discharge Data Studies Completed and Pending Completed Studies During Hospitalization Category Date Time Status Cardiac Stress Test MIBI [Sestamibi Stress Test Request Exams 03/18/22 16:36 Completed ] Routine XR chest 1V portable [id number] Routine Exams 03/18/22 16:31 Completed NM nilson perf SPECT r/s* [id number] Routine Nuc Med 03/19/22 16:36 Completed Pending at discharge Category Date Time Status BMP [Basic Metabolic Panel] AM LABS Lab 03/21/22 06:10 Results Magnesium Routine Lab 03/21/22 06:10 Results CV. echo transesophageal [id number] Routine Ultrasound 03/20/22 16:39 Taken Radiology Impressions Chest X-Ray 03/18/22 16:31 IMPRESSION: Cardiomegaly and minimal pulmonary vascular congestion. Laboratory Results WBC 10.1 10^3/uL (4.0-10.0) H 03/21/22 06:10 RBC 4.58 10^6/uL (4.1-5.3) 03/21/22 06:10 Hgb 11.6 g/dL (11.5-15.3) 03/21/22 06:10 Hct 37.8 % (37.0-47.0) 03/21/22 06:10 MCV 82.5 fl (81-99) 03/21/22 06:10 MCH 25.3 pg (28.0-34.0) L 03/21/22 06:10 MCHC 30.7 g/dL (30.0-36.0) 03/21/22 06:10 RDW 15.2 % (12.1-15.1) H 03/21/22 06:10 Plt Count 259 10^3/cmm (130-400) 03/21/22 06:10 MPV 10.3 fL (7.4-10.4) 03/21/22 06:10 Neut % (Auto) 60.0 % 03/21/22 06:10 Lymph % (Auto) 29.1 % 03/21/22 06:10 [place] % (Auto) 9.5 % 03/21/22 06:10 Eos % (Auto) 0.6 % 03/21/22 06:10 Baso % (Auto) 0.6 % 03/21/22 06:10 Neut # (Auto) 6.03 10^3/uL (1.8-7.7) 03/21/22 06:10 Lymph # (Auto) 2.9 10^3/uL (0.8-4.8) 03/21/22 06:10 [place] # (Auto) 1.0 10^3/uL (0.2-0.9) H 03/21/22 06:10 Eos # (Auto) 0.1 10^3/uL (0.0-0.8) 03/21/22 06:10 Baso # (Auto) 0.1 10^3/uL (0.0-0.1) 03/21/22 06:10 Nucleated RBC % (auto) 0 % 03/21/22 06:10 Nucleated RBCs # 0.0 /100WBC 03/21/22 06:10 PT 17.90 SECONDS (12.1-14.9) H 03/19/22 03:44 INR 1.45 (0.8-1.2) H 03/19/22 03:44 Sodium 138 mmol/L (136-145) 03/21/22 06:10 Potassium 4.2 mmol/L (3.5-5.1) 03/21/22 06:10 Chloride 103 mmol/L (98-107) 03/21/22 06:10 Carbon Dioxide 24 mmol/L (22-29) 03/21/22 06:10 Anion Gap 15.2 (5-19) 03/21/22 06:10 BUN 23 mg/dL (6-20) H 03/20/22 03:23 Creatinine 0.8 mg/dL (0.5-0.9) 03/21/22 06:10 GFR Calculation 58.2 mL/min (90-130) L 03/20/22 03:23 Glucose 102 mg/dL (65-115) 03/21/22 06:10 Estimat Average Glucose 237 03/19/22 03:44 Hemoglobin A1c 9.9 % (4.0-6.0) H 03/19/22 03:44 Calculated Osmolality 290 mOsm/kg (285-295) 03/21/22 06:10 Calcium 9.1 mg/dL (8.5-10.5) 03/20/22 03:23 Magnesium 2.1 mg/dL (1.7-2.3) 03/21/22 06:10 Total Bilirubin 0.5 mg/dL (0.15-1.2) 03/18/22 18:32 AST 17 U/L (0-32) 03/18/22 18:32 ALT 17 U/L (0-33) 03/18/22 18:32 Alkaline Phosphatase 181 U/L (35-105) H 03/18/22 18:32 NT-Pro-B Natriuret Pep 853 pg/mL (0-125) H 03/18/22 18:32 Total Protein 6.8 g/dL (6.6-8.7) 03/18/22 18:32 Albumin 3.8 g/dL (3.5-5.2) 03/18/22 18:32 Globulin 3.0 g/dL (1.3-4.6) 03/18/22 18:32 Triglycerides 71 mg/dL (0-150) 03/19/22 03:44 Cholesterol 102 mg/dL (0-200) 03/19/22 03:44 LDL Cholesterol, Calc 54 mg/dL (50-129) 03/19/22 03:44 HDL Cholesterol 34 mg/dL (60-100) L 03/19/22 03:44 LDL/HDL Ratio 1.59 RATIO (0.00-3.22) 03/19/22 03:44 Cholesterol/HDL Ratio 3.00 mg/dL (0.0-4.40) 03/19/22 03:44 TSH 5.11 uIU/mL (0.27-4.20) H 03/19/22 03:44 Free T4 1.20 ng/dL (0.82-1.77) 03/19/22 03:44 Free T3 3.5 PG/ML (2.0-4.4) 03/19/22 03:44 Vitals Last Vital Signs Temp 97.8 F 03/21/22 03:38 Pulse 42 L 03/21/22 05:46 Resp 17 03/21/22 03:38 BP 137/97 03/21/22 03:38 Pulse Ox 99 03/21/22 03:38 O2 Del Method 03/21/22 03:38 O2 Flow Rate 2 03/21/22 03:38 Discharge Plan Discharge Patient Disposition: Home Condition: Stable Prescriptions: New sotalol 80 mg Tablet 80 mg PO 0700 Qty: 30 3RF sotalol 80 mg Tablet 120 mg PO 1900 Qty: 45 3RF Continued rosuvastatin [Crestor] 10 mg tablet 10 mg PO QAM (DME) Dexcom G6 Relay Assembler Misc See Rx Instructions .Route Rx Instructions: 120 units over 3 days (DME) Dexcom G6 Transmitter Device See Rx Instructions .Route Rx Instructions: As directed albuterol sulfate [ProAir HFA] 90 mcg/actuation HFA aerosol inhaler 2 puff inhalation QID PRN (Reason: shortness of breath or wheezing) Qty: 8.5 2RF insulin lispro [Humalog U-100 Insulin] 100 unit/mL solution See Rx Instructions .ROUTE .COMPLEX Rx Instructions: on Insulin pump max rate of 3unit/hour on basal with target blood sugar of 150 Gives self bolus based on carb count budesonide-formoterol [Symbicort] 160-4.5 mcg/actuation HFA aerosol inhaler 2 puff inhalation BID PRN (Reason: unknown) Eliquis 5 mg tablet 5 mg PO BID Qty: 180 3RF (DME) Omnipod 5 G6 Pods (Gen 5) Cartridge See Rx Instructions .Route Qty: 5 3RF Rx Instructions: As directed Entresto 24-26 mg tablet 1 tab PO BID Qty: 60 6RF (DME) Dexcom G6 Sensor Device See Rx Instructions .Route Qty: 9 0RF Rx Instructions: As directed furosemide 20 mg tablet 20 mg PO DAILY PRN (Reason: edema) Qty: 30 1RF potassium chloride 10 mEq capsule, extended release 10 meq PO DAILY PRN (Reason: use with lasix) Qty: 30 1RF acetaminophen 500 mg Tablet 1,000 mg PO Q6H PRN (Reason: Pain) metformin 1,000 mg tablet 1,000 mg PO BID Discontinued carvedilol 25 mg tablet 25 mg PO BID Qty: 180 3RF Rx Instructions: must administer with a meal/food hydrochlorothiazide 25 mg Tablet 25 mg PO DAILY PRN (Reason: orthoppnea) Discharge Orders: Discharge Order (Routine); Ordered 03/21/22 Ordered By: Roland Martinez Other Ambulatory Orders: Basic Metabolic Panel (Routine) Timeframe: 1 Week Facility: [facility] - Location: Lab - Main Lab Ordered By: Alice Gomez ECG 12 lead EKG (Routine) Timeframe: 1 Week Facility: [facility] - Location: Respiratory Therapy Ordered By: Alice Gomez Magnesium (Routine) Timeframe: 1 Week Facility: [facility] - Location: Lab - Main Lab Ordered By: Alice Gomez NT Pro B Type Natriuretic Pept (Routine) Timeframe: 1 Week Facility: [facility] - Location: Lab - Main Lab Ordered By: Alice Gomez Referrals: Peyton Vela FNP [Nurse Practitioner] - 1 week ([facility] will call you with an appointment for Peyton Vela with-in 1 week. If you do not hear from them pleas call [phone].) Discharge Diet: Cardiac and Diabetic Discharge Activity: Increase activity as tolerated Patient Instructions: Sotalol (By mouth), Atrial Flutter (DC), A-fib (Atrial Fibrillation) (DC), Dilated Cardiomyopathy (DC), Opioid Safety Discharge Attestations Time Spent in Discharge Care*: greater than 30 min Quality Metrics Clinical Quality Measures [ No reported AMI, CVA or VTE this stay] Coding Level of Care Code Acute Chg FW DC note Diagnoses Atrial flutter I48.92 Cardiomyopathy I42.9 History of atrial fibrillation Z86.79 Diabetes mellitus E11.9 Hyperlipidemia E78.5 H/O mitral valve repair Z98.890 History of cardiac radiofrequency ablation Z98.890
[2022-03-21 07:15] VITALS: BP 147/97; PULSE 87; RESP 12; O2SAT 94
[2022-03-21] MEDS: budesonide 0.5 mg/2 mL Neb 0.25 MG INHALATION (07:25)
[2022-03-21] MEDS: levalbuterol 0.63 mg/3 mL Neb INHALATION (07:25)
[2022-03-21 07:26] VITALS: PULSE 86; RESP 16; O2SAT 98
[2022-03-21 07:31] VITALS: PULSE 86
[2022-03-21] MEDS: sacubitril/valsartan 24-26 mg Tablet 1 EACH PO (08:25)
[2022-03-21] MEDS: sotalol 80 mg Tablet PO (08:25)
[2022-03-21] MEDS: sodium chloride 0.9% 1,000 ML 30 ML IV (08:25)
[2022-03-21] MEDS: apixaban 5 mg Tablet PO (08:25)
--- NOTE | 2022-03-21 11:32 | PC.NURSE ---
Pt sitting up in bed with eyes open talking to staff. Pt resp even and non-labored no distress noted. Pts IV patent no redness or swelling noted. Pt has no c/o pain or discomfort at the present time. No needs voiced. Call light in reach. Will cont to monitor.
== END 2022-03-21 14:00 | disposition home or self-care (01) | DRG 308 ==
PROVIDERS: Admitting Provider Internal Medicine Cardiovascular Disease; PCP Nurse Practitioner Family; Visit Provider Internal Medicine Cardiovascular Disease
DX: I48.92 Unspecified atrial flutter (principal); I50.23 Acute on chronic systolic (congestive) heart failure; I42.9 Cardiomyopathy, unspecified; E11.9 Type 2 diabetes mellitus without complications; E78.5 Hyperlipidemia, unspecified; I11.0 Hypertensive heart disease with heart failure; Z98.890 Other specified postprocedural states; Z79.51 Long term (current) use of inhaled steroids; Z79.4 Long term (current) use of insulin; Z79.01 Long term (current) use of anticoagulants; Z79.84 Long term (current) use of oral hypoglycemic drugs; Z88.0 Allergy status to penicillin
CPT/HCPCS: 36415; 71045; 78452; 80048; 80053; 80061; 83036; 83735; 83880; 84439; 84443; 84481; 85025; 85610; 93005; 93017; 93312; 93320; 93325; 94640; 96374; 96375; A9500; J1940; J2370; J2405; J2704; J2785; J7030; J7614; J7626; J7644

== ENCOUNTER 2022-04-09 09:11 | Outpatient (CLI) | payer OTHER, SELFPAY ==
[2022-04-09 10:01] LABS: Anion Gap 12.8 (5-19); Blood Urea Nitrogen 17 mg/dL (6-20); Calcium 9.9 mg/dL (8.5-10.5); Carbon Dioxide 30 mmol/L (22-29); Chloride 101 mmol/L (98-107); Glomerular Filtration Rate 65.8 mL/min (90-130); Glucose 182 mg/dL (65-115); Magnesium 2.3 mg/dL (1.7-2.3); Osmolality Calculated 294 mOsm/kg (285-295); Potassium 4.8 mmol/L (3.5-5.1); Sodium 139 mmol/L (136-145)
[2022-04-09 10:58] LABS: NT Pro B Type Natriuretic Pept 559 pg/mL (0-125)
== END 2022-04-09 09:12 | disposition home or self-care (01) ==
LOC: LAB 09:15
PROVIDERS: Nurse Practitioner Family; PCP Nurse Practitioner Family; Visit Provider Internal Medicine Cardiovascular Disease
DX: I42.9 Cardiomyopathy, unspecified (principal); I48.92 Unspecified atrial flutter; I10 Essential (primary) hypertension
CPT/HCPCS: 80048; 83735; 83880

== ENCOUNTER → 2022-06-07 16:13 | Outpatient (BNVA) | payer OTHER, SELFPAY | PROVIDERS: PCP Nurse Practitioner Family; Visit Provider Internal Medicine | DX: I48.92 Unspecified atrial flutter (principal); I42.9 Cardiomyopathy, unspecified; E78.5 Hyperlipidemia, unspecified | CPT/HCPCS: 36415; 84439; 84443; 84480 ==

== ENCOUNTER 2022-06-18 09:44 | Outpatient (CLI) | payer OTHER, SELFPAY ==
--- NOTE | 2022-06-18 09:53 | MM_ITS ---
WS: [id number] RIGHT DIGITAL TOMOSYNTHESIS MAMMOGRAPHY WITH CAD. HISTORY: abnormal mammogram six-month follow-up RIGHT breast calcification biopsy. Benign pathology. COMPARISON: 12/29/2021, 11/13/2021 and 12/17/2021 Technique: CC, MLO and ML views. Magnification views RIGHT CC and MLO. Breast composition: There are scattered areas of fibroglandular density. Biopsy clip in the upper ou ter quadrant. Calcifications have been removed during the biopsy. There are a few additional calcific ations within the mid breast but these are not progressing. Some of these are less well visualized on today's study. MM/[place] [id number] IMPRESSION: BI-RADS: 3-Probably Benign FOLLOW UP: 6 Month Follow-up Return to annual screening mammography.
== END 2022-06-18 09:45 | disposition home or self-care (01) ==
LOC: RAD 09:48
PROVIDERS: PCP Nurse Practitioner Family; Visit Provider Nurse Practitioner Family
DX: R92.8 Other abnormal and inconclusive findings on diagnostic imaging of breast (principal)
CPT/HCPCS: 77061; G0279

== ENCOUNTER → 2022-08-18 11:51 | Outpatient (BNVA) | payer OTHER, SELFPAY | PROVIDERS: PCP Nurse Practitioner Family; Visit Provider Internal Medicine Cardiovascular Disease | DX: Z86.79 Personal history of other diseases of the circulatory system (principal); R06.02 Shortness of breath; I42.9 Cardiomyopathy, unspecified; Z98.890 Other specified postprocedural states | CPT/HCPCS: 93005 ==

== ENCOUNTER 2022-08-30 09:33 | Outpatient (CLI) | payer OTHER, SELFPAY ==
--- NOTE | 2022-08-30 09:30 | USCV_ITS ---
Debbie Smith Age: 52 Gender: F : 1970 Exam Date: 08/30/2022 09:55 Ordering Phys: Alice Gomez MD ([email or web address]) Technologist: Krystle Clifton [place] [facility] [place]: SOB, CAD, Stent BP: 138 / 85 HR: 102 Rhythm: Sinus Technical Quality: Adequate MEASUREMENTS (Male / Female) Normal Values 2D ECHO LV Diastolic Diameter PLAX 3.7 cm 4.2 - 5.9 / 3.9 - 5.3 cm LV Systolic Diameter PLAX 2.6 cm IVS Diastolic Thickness 1.4 cm 0.6 - 1.0 / 0.6 - 0.9 cm IVS Systolic Thickness 1.8 cm LVPW Diastolic Thickness 1.4 cm 0.6 - 1.0 / 0.6 - 0.9 cm LVPW Systolic Thickness 2.1 cm LVOT Diameter 2.2 cm LV Ejection Fraction 2D Teich 58.4 % LV Ejection Fraction MOD 2C 35.2 % LV Ejection Fraction 2C AL 39.8 % LA Diameter 3.0 cm LA Width 3.3 cm LA Height 4.3 cm RA Width 3.3 cm RA Height 4.2 cm Aorta at Sinotubular Diameter 2.9 cm IVC Diameter 1.3 cm M-MODE Aortic Annulus Diameter 2.9 cm LA Ao Ratio MM 1.2 MV E Point Septal Separation 0.9 cm DOPPLER AV Peak Velocity 130.0 cm/s LVOT Peak Velocity 82.0 cm/s AV Area Cont Eq vti 2.3 cm squared AV Area Cont Eq pk 2.4 cm squared MV Peak Velocity 158.0 cm/s MV Area PHT 3.6 cm squared Mitral E to A Ratio 9.9 MV E' Velocity 66.5 cm/s Mitral E to MV E' Ratio 20.2 Mitral E to LV E' Lateral Ratio 15.1 Mitral E to LV E' Septal Ratio 30.5 TR Peak Velocity 180.5 cm/s TR Peak Gradient 13.0 mmHg Right Atrial Pressure 5.0 mmHg Pulmonary Artery Systolic Pressu 18.0 mmHg PV Peak Velocity 85.0 cm/s RV Acceleration Time 0.1 s RV Ejection Time 0.2 s RV AcT/ET 0.6 FINDINGS Left Ventricle Normal left ventricular cavity size. Mildly decreased left ventricular systolic function. Left ventricular ejection fraction is estimated at 40-45%. Global hypokinesis with abnormal septal motion. Right Ventricle Normal right ventricular size and systolic function. Right ventricular systolic pressure 20 mmHg. Right Atrium Normal right atrial size. Left Atrium Mildly increased left atrial size. Mitral Valve S/p mitral valve repair with Abreu physio II 29 mm annuloplasty ring. No mitral valve stenosis. Trace to mild mitral valve regurgitation. Aortic Valve No aortic valve stenosis. Trace aortic valve regurgitation. Tricuspid Valve Structurally normal tricuspid valve. Pulmonic Valve No pulmonary valve stenosis. No pulmonary valve regurgitation. Pericardium No pericardial effusion. Aorta Normal size aortic root and proximal ascending aorta. IVC Normal IVC dimension with >50% respiratory change of the inferior vena cava. CONCLUSIONS 1. Normal left ventricular cavity size. Mildly decreased left ventricular systolic function. Left ventricular ejection fraction is estimated at 40-45%. Global hypokinesis with abnormal septal motion. 2. S/p mitral valve repair with Abreu physio II 29 mm annuloplasty ring. Trace to mild mitral valve regurgitation. 3. When compared to study dated 02/10/2022, left ventricle systolic function seems to have improved from 25% then. Alice Gomez MD (Electronically Signed) Final Date: 02 September 2022 12:21 S
== END 2022-08-30 09:34 | disposition home or self-care (01) ==
PROVIDERS: PCP Nurse Practitioner Family; Visit Provider Internal Medicine Cardiovascular Disease
DX: R06.02 Shortness of breath (principal); I42.9 Cardiomyopathy, unspecified; I34.0 Nonrheumatic mitral (valve) insufficiency; Z86.79 Personal history of other diseases of the circulatory system; Z98.890 Other specified postprocedural states
CPT/HCPCS: 93306

== ENCOUNTER 2022-09-06 09:12 | Outpatient (CLI) | payer OTHER, SELFPAY ==
[2022-09-06 10:17] LABS: Alanine Aminotransferase 15 U/L (0-33); Albumin Level 3.9 g/dL (3.5-5.2); Alkaline Phosphatase 166 U/L (35-105); Anion Gap 13.2 (5-19); Aspartate Amino Transferase 15 U/L (0-32); Blood Urea Nitrogen 15 mg/dL (6-20); Calcium 9.3 mg/dL (8.5-10.5); Carbon Dioxide 29 mmol/L (22-29); Chloride 99 mmol/L (98-107); Globulin 3.3 g/dL (1.3-4.6); Glomerular Filtration Rate 65.8 mL/min (90-130); Glucose 156 mg/dL (65-115); Magnesium 1.9 mg/dL (1.7-2.3); NT Pro B Type Natriuretic Pept 340 pg/mL (0-125); Osmolality Calculated 288 mOsm/kg (285-295); Potassium 4.2 mmol/L (3.5-5.1); Sodium 137 mmol/L (136-145); Thyroid Stimulating Hormone 2.35 uIU/mL (0.27-4.20); Total Bilirubin 0.6 mg/dL (0.15-1.2); Total Protein 7.2 g/dL (6.6-8.7)
[2022-09-06 10:18] LABS: Free T4 Free Thyroxine 1.24 ng/dL (0.82-1.77)
[2022-09-07 11:34] LABS: T3 Total 122 ng/dL (76-181)
[2022-09-09 15:11] LABS: Chol HDL Ratio 4.25 mg/dL (0.0-4.40); Cholesterol 136 mg/dL (0-200); HDL Cholesterol 32 mg/dL (60-100); LDL Cholesterol Calculated 71 mg/dL (50-129); LDL HDL Ratio 2.22 RATIO (0.00-3.22); Triglycerides 163 mg/dL (0-150)
== END 2022-09-06 09:13 | disposition home or self-care (01) ==
PROVIDERS: PCP Nurse Practitioner Family; Referring Provider Internal Medicine Cardiovascular Disease; Visit Provider Internal Medicine
DX: I48.92 Unspecified atrial flutter (principal); E11.9 Type 2 diabetes mellitus without complications; I42.9 Cardiomyopathy, unspecified; E78.5 Hyperlipidemia, unspecified; Z86.79 Personal history of other diseases of the circulatory system; R06.02 Shortness of breath; Z98.890 Other specified postprocedural states
CPT/HCPCS: 36415; 80053; 80061; 83735; 83880; 84439; 84443; 84480

== ENCOUNTER 2022-12-03 09:07 | Outpatient (CLI) | payer OTHER, SELFPAY ==
[2022-12-03 09:58] LABS: Estmated Average Glucose 157; Hemoglobin A1C 7.1 % (4.0-6.0)
[2022-12-03 10:08] LABS: Alanine Aminotransferase 14 U/L (0-33); Alkaline Phosphatase 153 U/L (35-105); Anion Gap 13.3 (5-19); Aspartate Amino Transferase 17 U/L (0-32); Blood Urea Nitrogen 18 mg/dL (6-20); Calcium 8.9 mg/dL (8.5-10.5); Carbon Dioxide 28 mmol/L (22-29); Chol HDL Ratio 3.11 mg/dL (0.0-4.40); Cholesterol 118 mg/dL (0-200); Globulin 3.3 g/dL (1.3-4.6); Glomerular Filtration Rate 47.2 mL/min (90-130); Glucose 112 mg/dL (65-115); HDL Cholesterol 38 mg/dL (60-100); LDL Cholesterol Calculated 61 mg/dL (50-129); LDL HDL Ratio 1.61 RATIO (0.00-3.22); Osmolality Calculated 289 mOsm/kg (285-295); Total Bilirubin 0.7 mg/dL (0.15-1.2); Total Protein 7.3 g/dL (6.6-8.7); Triglycerides 93 mg/dL (0-150)
[2022-12-03 10:13] LABS: Creatinine Urine, Random 258 mg/dL (28-217); Microalbum Creatinine Ratio Ur 8 mg/dL (0-20); Microalbumin Random Urine 2 ug/dL (0-20)
[2022-12-03 10:15] LABS: Chloride 101 mmol/L (98-107); Potassium 4.3 mmol/L (3.5-5.1); Sodium 138 mmol/L (136-145)
== END 2022-12-03 09:08 | disposition home or self-care (01) ==
PROVIDERS: PCP Nurse Practitioner Family; Visit Provider Internal Medicine
DX: E11.9 Type 2 diabetes mellitus without complications (principal); E78.5 Hyperlipidemia, unspecified; Z86.79 Personal history of other diseases of the circulatory system
CPT/HCPCS: 36415; 80053; 80061; 82044; 83036

== ENCOUNTER 2023-04-18 19:11 | Emergency (ER) | payer OTHER, SELFPAY ==
[2023-04-18 19:17] VITALS: BP 160/65; PULSE 105; RESP 14; TEMP 36.6; O2SAT 97; BMI 28.0
--- NOTE | 2023-04-18 21:04 | XRR_ITS ---
PROCEDURE INFORMATION: Exam: XR Left Foot Exam date and time: 04/18/2023 9:26 PM Age: 53 years old Clinical indication: Pain; Foot and toes; Left; Additional info: Injury TECHNIQUE: Imaging protocol: Radiologic exam of the left foot. Views: 3 or more views. COMPARISON: No relevant prior studies available. FINDINGS: Bones/joints: Calcaneal spurring is noted. No acute fracture noted. Soft tissues: Normal. XR/XR foot LT min 3V* [id number] IMPRESSION: I see no acute abnormality.
--- NOTE | 2023-04-18 21:04 | USR_ITS ---
PROCEDURE INFORMATION: Exam: US Duplex Bilateral Lower Extremity Arteries Exam date and time: 04/18/2023 10:51 PM Age: 53 years old Clinical indication: Other: Reddish left 4th toe; Patient HX: Iddm x 10 years, pump. Neuropathy. ; Additional info: Toe discoloration TECHNIQUE: Imaging protocol: Real-time ultrasound scan of the arteries of the bilateral lower extremities with 2-D stock[place] scale, color Doppler flow and spectral waveform analysis. Images documented and saved. COMPARISON: CR (LOW EXM, ) 04/18/2023 9:26 PM FINDINGS: Right common femoral artery: No occlusion or significant stenosis. Normal waveform. Right superficial femoral artery: No occlusion or significant stenosis. Normal waveform. Right popliteal artery: No occlusion or significant stenosis. Normal waveform. Right calf/foot arteries: No occlusion or significant stenosis in the visualized arteries. Normal waveforms. Dorsalis pedis artery is patent. Left common femoral artery: No occlusion or significant stenosis. Normal waveform. Left superficial femoral artery: No occlusion or significant stenosis. Normal waveform. Left popliteal artery: No occlusion or significant stenosis. Normal waveform. Left calf/foot arteries: No occlusion or significant stenosis in the visualized arteries. Normal waveforms. Dorsalis pedis artery is [place]. US/[place] [id number] IMPRESSION: No stenosis or occlusion.
[2023-04-18 21:07] VITALS: BP 148/84; PULSE 85; RESP 16; O2SAT 98
--- NOTE | 2023-04-18 21:20 | ED_ITS ---
HPI - Extremity Problem General: Chief complaint: Extremity Problem,Nontraumatic Stated complaint: bilateral feet pain Time Seen by Provider: 04/18/23 20:56 Source: patient Mode of arrival: ambulatory Limitations: no limitations History of Present Illness: 53-year-old female has a history of diab etes along with neuropathy she states she has had noticed some discoloration to her toes over the last day. States they appear red and especially her left fourth toe. She denies any pain but states she cannot feel pain really in her feet denies any no injuries no history of peripheral vascular disease no fevers or redness Associated symptoms: Deny chest pain, fever(s) or rash Review of Systems Const: Denies: fever(s), chills, body aches or change in appetite ENMT: Denies: throat pain or dental pain Card: Denies: chest pain Resp: Denies: dyspnea GI: Denies: abdominal pain, nausea, vomiting or diarrhea Musc: Denies: neck pain or back pain Skin/Breast: Denies: rash Neuro: Denies: headache(s) PFSH ED PFSH: Medical History Atrial flutter Cardiomyopathy Abnormal mammogram of right breast Diabetes mellitus Hyperlipidemia Surgical History H/O mitral valve repair (07/2017) History of cardiac radiofrequency ablation (12/2017) Family History Grandmother Myocardial infarction Other Cancer Diabetes Lung disease Social History Smoking and tobacco/nicotine status: never used tobacco/nicotine Household members: spouse Marital status: Current occupational status: employed Physical Exam Const: COMMON NORMALS: no acute distress, patient oriented x3 and healthy appearing HENMT: COMMON NORMALS: normocephalic and atraumatic HEAD & SCALP: normocephalic and atraumatic Neck/C-Spine: COMMON NORMALS: full ROM and supple Chest: COMMONS NORMALS: normal inspection of the chest Resp: COMMON NORMALS: normal respiratory effort Cardio: COMMON NORMALS: regular rate and regular rhythm RATE: regular rate RHYTHM: regular rhythm Extremity: COMMON NORMALS: normal to inspection and full ROM OTHER: Was able to find DP and PT pulses with Doppler left fourth toe is slightly reddened she does not have any blue discoloration to her toes Neuro: COMMON NORMALS: patient oriented x3, moves all extremities and no focal motor deficits Psych: COMMON NORMALS: mental status grossly normal, Normal thought process present and cooperative THOUGHT PROCESS: Normal thought process present Skin: COMMON NORMALS: no rashes or lesions noted and no wounds GENERAL SKIN EXAM: no rashes or lesions noted Course Vital Signs: Vital signs: Vital Signs Temperature 97.8 F 04/18/23 19:17 Pulse Rate 77 04/19/23 00:13 Respiratory Rate 16 04/19/23 00:13 Blood Pressure 128/80 04/19/23 00:13 Pulse Oximetry 96 04/19/23 00:13 Oxygen Delivery Me thod Room Air 04/18/23 21:07 MDM - Extremity (Nontraumatic) Medical Decision Making Patient presents here some slight discoloration of her toes they are red and 1 toe appears that she is injured it either rubbed in a shoe or hit it on something x-rays negative ultrasound negative no signs of arterial occlusion she is stable for discharge she is follow-up with PCP and return if worsening. Lab Data Radiology Impressions Duplex Scan Lower Extremity Artery 04/18/23 21:04 IMPRESSION: No stenosis or occlusion. Foot X-Ray 04/18/23 21:04 IMPRESSION: I see no acute abnormality. All radiology interpretation(s) finalized by discharge Discharge Plan Discharge Patient Disposition: Home Clinical Impression: Discoloration of skin of toe Condition: Stable Prescriptions: No Action furosemide 20 mg tablet 20 mg PO DAILY PRN (Reason: edema) Qty: 90 1RF potassium chloride 10 mEq capsule, extended release 10 meq PO DAILY PRN (Reason: use with lasix) Qty: 90 1RF Entresto 97-103 mg tablet 1 tab PO BID Qty: 180 1RF Mounjaro 7.5 mg/0.5 mL pen injector 7.5 mg SUBCUT Q7D 30 Days Qty: 2.5 0RF sotalol 80 mg tablet 80 mg PO BID Qty: 180 3RF Mounjaro 10 mg/0.5 mL pen injector See Rx Instructions .ROUTE .COMPLEX Qty: 2 0RF Dose Instruction: INJECT 10 MG SUBCUTANEOUSLY EVERY 7 DAYS FOR 30 DAYS Rx Instructions: INJECT 10 MG SUBCUTANEOUSLY EVERY 7 DAYS FOR 30 DAYS Mounjaro 12.5 mg/0.5 mL pen injector See Rx Instructions .ROUTE .COMPLEX Qty: 2 0RF Dose Instruction: INJECT 12.5 MG SUBCUTANEOUSLY EVERY 7 DAYS FOR 30 DAYS Rx Instructions: INJECT 12.5 MG SUBCUTANEOUSLY EVERY 7 DAYS FOR 30 DAYS spironolactone 25 mg tablet See Rx Instructions .ROUTE .COMPLEX Qty: 90 1RF Dose Instruction: TAKE 1 TABLET BY MOUTH EVERY DAY Rx Instructions: TAKE 1 TABLET BY MOUTH EVERY DAY rosuvastatin 10 mg tablet 10 mg PO DAILY Qty: 30 0RF Rx Instructions: 10mg daily in am (DME) Dexcom G6 Sensor Device See Rx Instructions .ROUTE .COMPLEX Qty: 9 0RF Dose Instruction: DIRECTED Rx Instructions: change every 10 days (DME) Dexcom G6 Transmitter Device See Rx Instructions .Route Qty: 2 2RF Rx Instructions: Change every 90 days insulin lispro [Humalog U-100 Insulin] 100 unit/mL solution See Rx Instructions .ROUTE .COMPLEX 90 Days Qty: 90 1RF Rx Instructions: on Insulin pump max rate of 3unit/hour on basal with target blood sugar of 150 Gives self bolus based on carb count (DME) Omnipod 5 G6 Pods (Gen 5) Cartridge See Rx Instructions .ROUTE .COMPLEX Qty: 15 2RF Dose Instruction: USE DIRECTED EVERY OTHER DAY Rx Instructions: USE DIRECTED EVERY OTHER DAY Mounjaro 15 mg/0.5 mL pen injector See Rx Instructions .ROUTE .COMPLEX Qty: 6 1RF Dose Instruction: INJECT 15 MG SUBCUTANEOUSLY EVERY 7 DAYS FOR 1 MONTH AND CONTINUE Rx Instructions: INJECT 15 MG SUBCUTANEOUSLY EVERY 7 DAYS ondansetron 4 mg tablet,disintegrating 4 mg PO Q8H PRN (Reason: nausea and vomiting) 30 Days Qty: 30 0RF acetaminophen 500 mg Tablet 1,000 mg PO Q6H PRN (Reason: Pain) Discharge Orders: Discharge ED (Routine); Ordered 04/18/23 Ordered By: Vick Martin Referrals: Georgina Bonds NP [Primary Care Provider] - 1-3 days Discharge Diet: Advance as tolerated Discharge Activity: Resume usual activity Patient Instructions: Foot Care Coding Level of Care Code 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
[2023-04-19 00:13] VITALS: BP 128/80; PULSE 77; RESP 16; O2SAT 96
== END 2023-04-19 00:16 | disposition home or self-care (01) ==
PROVIDERS: Emergency Provider Emergency Medicine; PCP Nurse Practitioner Family
DX: L98.8 Other specified disorders of the skin and subcutaneous tissue (principal); Z79.4 Long term (current) use of insulin; E11.9 Type 2 diabetes mellitus without complications; E78.5 Hyperlipidemia, unspecified
CPT/HCPCS: 73630; 93925; 99284

== ENCOUNTER 2023-06-08 09:50 | Outpatient (CLI) | payer OTHER, SELFPAY ==
[2023-06-08 10:47] LABS: Alanine Aminotransferase 16 U/L (0-33); Albumin Level 4.1 g/dL (3.5-5.2); Alkaline Phosphatase 159 U/L (35-105); Anion Gap 12.2 (5-19); Aspartate Amino Transferase 19 U/L (0-32); Blood Urea Nitrogen 15 mg/dL (6-20); Calcium 9.4 mg/dL (8.5-10.5); Carbon Dioxide 28 mmol/L (22-29); Chloride 104 mmol/L (98-107); Chol HDL Ratio 2.82 mg/dL (0.0-4.40); Cholesterol 138 mg/dL (0-200); Globulin 3.3 g/dL (1.3-4.6); Glomerular Filtration Rate 65.5 mL/min (90-130); Glucose 110 mg/dL (65-115); HDL Cholesterol 49 mg/dL (60-100); LDL Cholesterol Calculated 74 mg/dL (50-129); LDL HDL Ratio 1.51 RATIO (0.00-3.22); Osmolality Calculated 291 mOsm/kg (285-295); Potassium 4.2 mmol/L (3.5-5.1); Sodium 140 mmol/L (136-145); Total Bilirubin 0.6 mg/dL (0.15-1.2); Total Protein 7.4 g/dL (6.6-8.7); Triglycerides 77 mg/dL (0-150)
[2023-06-08 11:02] LABS: Creatinine Urine, Random 297 mg/dL (28-217); Microalbum Creatinine Ratio Ur 7 mg/dL (0-20); Microalbumin Random Urine 2 ug/dL (0-20)
[2023-06-08 11:12] LABS: Estmated Average Glucose 146; Hemoglobin A1C 6.7 % (4.0-6.0)
== END 2023-06-08 09:51 | disposition home or self-care (01) ==
LOC: LAB 09:51
PROVIDERS: PCP Nurse Practitioner Family; Visit Provider Internal Medicine
DX: E11.9 Type 2 diabetes mellitus without complications (principal)
CPT/HCPCS: 36415; 80053; 80061; 82044; 83036

== ENCOUNTER → 2023-08-23 15:43 | Outpatient (BNVA) | payer OTHER, SELFPAY | PROVIDERS: PCP Nurse Practitioner Family; Visit Provider Internal Medicine Cardiovascular Disease | DX: R07.9 Chest pain, unspecified (principal) | CPT/HCPCS: 93005 ==

== ENCOUNTER 2023-09-21 10:50 | Outpatient (CLI) | payer OTHER, SELFPAY ==
[2023-09-21 11:30] LABS: Estmated Average Glucose 146; Hemoglobin A1C 6.7 % (4.0-6.0)
[2023-09-21 11:48] LABS: Creatinine Urine, Random 196 mg/dL (28-217); Microalbum Creatinine Ratio Ur 10 mg/dL (0-20); Microalbumin Random Urine 2 ug/dL (0-20)
[2023-09-21 11:51] LABS: Albumin Level 4.1 g/dL (3.5-5.2); Alkaline Phosphatase 152 U/L (35-105); Anion Gap 14.7 (5-19); Aspartate Amino Transferase 18 U/L (0-32); Blood Urea Nitrogen 17 mg/dL (6-20); Calcium 9.2 mg/dL (8.5-10.5); Carbon Dioxide 28 mmol/L (22-29); Chloride 100 mmol/L (98-107); Chol HDL Ratio 2.86 mg/dL (0.0-4.40); Cholesterol 140 mg/dL (0-200); Globulin 3.2 g/dL (1.3-4.6); Glomerular Filtration Rate 65.5 mL/min (90-130); Glucose 112 mg/dL (65-115); HDL Cholesterol 49 mg/dL (60-100); LDL Cholesterol Calculated 75 mg/dL (50-129); LDL HDL Ratio 1.53 RATIO (0.00-3.22); Osmolality Calculated 288 mOsm/kg (285-295); Potassium 4.7 mmol/L (3.5-5.1); Sodium 138 mmol/L (136-145); Total Bilirubin 0.7 mg/dL (0.15-1.2); Total Protein 7.3 g/dL (6.6-8.7); Triglycerides 79 mg/dL (0-150)
[2023-09-21 12:02] LABS: Alanine Aminotransferase 14 U/L (0-33)
== END 2023-09-21 10:51 | disposition home or self-care (01) ==
LOC: LAB 10:53
PROVIDERS: PCP Nurse Practitioner Family; Visit Provider Internal Medicine
DX: E11.9 Type 2 diabetes mellitus without complications (principal); E78.5 Hyperlipidemia, unspecified
CPT/HCPCS: 80053; 80061; 82044; 83036

== ENCOUNTER → 2023-10-25 09:44 | Outpatient (BNVA) | payer OTHER, SELFPAY | PROVIDERS: PCP Nurse Practitioner Family; Visit Provider Nurse Practitioner Family | DX: I48.3 Typical atrial flutter (principal); R07.89 Other chest pain | CPT/HCPCS: 93005 ==

== ENCOUNTER 2023-11-01 15:27 | Observation (INO) | payer OTHER, SELFPAY ==
--- NOTE | 2023-11-01 15:29 | XRR_ITS ---
PROCEDURE INFORMATION: Exam: XR Chest Exam date and time: 11/01/2023 3:44 PM Age: 53 years old Clinical indication: Pain; Angina pectoris; Additional info: Chest pain TECHNIQUE: Imaging protocol: Radiologic exam of the chest. Views: 1 view. COMPARISON: CR XR chest 2V* [id number] 03/18/2022 4:44 PM FINDINGS: Lungs: Unremarkable. No consolidation. Pleural spaces: Unremarkable. No pleural effusion. No pneumothorax. Heart/Mediastinum: Stable mild cardiomegaly. Vasculature: Bioprosthetic aortic valve. Bones/joints: Post median sternotomy. XR/XR chest 1V portable [id number] IMPRESSION: No acute findings.
--- NOTE | 2023-11-01 15:29 | ECG_ITS ---
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 Measurements Intervals [place] Rate: 110 P: 0 DE: 0 QRS: -60 QRSD: 103 T: 54 QT: 364 QTc: 494 Interpretive Statements SUPRAVENTRICULAR TACHYCARDIA, possibly sinus LOW QRS VOLTAGE IN PRECORDIAL LEADS [QRS DEFLECTION < 1.0 mV IN CHEST LEADS] PATTERN CONSISTENT WITH PULMONARY DISEASE LEFT ANTERIOR FASCICULAR BLOCK [QRS AXIS <= -45, QR IN I, RS IN II] Compared to ECG 08/23/2023 15:51:01 Low QRS voltage now present Sinus tachycardia no longer present Electronically Signed On 11-01-2023 23:32:27 CDT by Skip Victor M.D. [id number] f
[2023-11-01 15:37] VITALS: BP 113/74; PULSE 107; RESP 16; TEMP 36.7; O2SAT 100; BMI 26.1
[2023-11-01 15:59] LABS: Basophils # 0.1 10^3/uL (0.0-0.1); Basophils % 0.6 %; Eosinophils # 0.1 10^3/uL (0.0-0.8); Hematocrit 44.7 % (36-47); Lymphocytes # 3.5 10^3/uL (0.8-4.8); Mean Corpuscular HGB Conc 32.4 g/dL (30-55); Mean Corpuscular Hemoglobin 28.2 pg (27-33); Mean Corpuscular Volume 86.8 fl (85-98); Mean Platelet Volume 9.9 fL (7.4-10.4); Monocytes # 0.8 10^3/uL (0.2-0.9); Monocytes % 7.9 %; Neutrophils # 5.74 10^3/uL (1.8-7.7); Neutrophils % 56.2 %; Nucleated Red Blood Cells % 0 %; Platelet Count 261 10^3/cmm (157-399); Red Blood Count 5.15 10^6/uL (3.85-5.65); Red Cell Distribution Width 12.9 % (12.1-15.1); White Blood Count 10.19 10^3/uL (3.29-11.43)
[2023-11-01 16:22] LABS: Troponin(5th) Baseline < 6 ng/L (0-10)
[2023-11-01 16:32] LABS: Alanine Aminotransferase 17 U/L (0-33); Albumin Level 4.3 g/dL (3.5-5.2); Alkaline Phosphatase 150 U/L (35-105); Anion Gap 18.5 (5-19); Aspartate Amino Transferase 18 U/L (0-32); Blood Urea Nitrogen 22 mg/dL (6-20); Calcium 9.6 mg/dL (8.5-10.5); Carbon Dioxide 26 mmol/L (22-29); Chloride 98 mmol/L (98-107); Creatinine Clr Calc Pharmacy 53.6528; Globulin 3.8 g/dL (1.3-4.6); Glucose 113 mg/dL (65-115); NT Pro B Type Natriuretic Pept 173 pg/mL (0-125); Osmolality Calculated 290 mOsm/kg (285-295); Potassium 4.5 mmol/L (3.5-5.1); Sodium 138 mmol/L (136-145); Total Bilirubin 0.9 mg/dL (0.15-1.2); Total Protein 8.1 g/dL (6.6-8.7)
--- NOTE | 2023-11-01 17:00 | ED_ITS ---
HPI - Chest Pain 2 General: Chief Complaint: Chest Pain Stated Complaint: cp Time Seen by Provider: 11/01/23 15:39 History of Present Illness: 53-year-old female presents emergency ro om complaining of chest pain for the last 10 minutes its already been getting better since she arrived. She states she is intermittently had chest pain she describes it as a backpack sensation like something is hanging on her back today was more the anterior left side of her chest there is no radiation to her neck or arms. She has a history of atrial fibrillation she has had ablations x 2 for this currently is on a beta- qian she was previously on carvedilol she is supposed to be starting metoprolol had seen her rn iv therapy yesterday. Additionally she previously had a sternotomy for a mitral valve repair. A C ring was placed in the mitral valve she did not have an actual valvuloplasty. She is not on any oral anticoagulants that she is diabetic. Associated symptoms: Deny abdominal pain, dyspnea or fever(s) Related Data Home Medications Medication Instructions Recorded Confirmed acetaminophen 500 mg tablet 1,000 mg PO Q6H PRN Pain 03/19/22 11/01/23 Previous Rx's Medication Instructions Recorded Dexcom G6 Transmitter #2 ea 02/18/23 (blood-glucose transmitter) insulin pump cart,automated,BT #15 ea 02/18/23 (Omnipod 5 G6 Pods (Gen 5) subcutaneous cartridge) blood-glucose sensor (Dexcom G6 #9 ea 05/26/23 Sensor device) ondansetron 4 mg disintegrating See Rx Instructions .Route 05/26/23 tablet .COMPLEX #27 tabs blood-glucose transmitter (Dexcom #1 ea 06/09/23 G6 Transmitter device) sacubitril 97 mg-valsartan 103 mg 1 tab PO BID #180 tabs 06/13/23 tablet (Entresto) tirzepatide 15 mg/0.5 mL See Rx Instructions .Route 08/01/23 subcutaneous pen injector .COMPLEX #6 mL (Mounjaro) furosemide 20 mg tablet 20 mg PO DAILY PRN edema #90 tabs 08/09/23 potassium chloride 10 mEq 10 meq PO DAILY PRN use with lasix 08/09/23 capsule,extended release #90 caps spironolactone 25 mg tablet See Rx Instructions .Route 08/22/23 .COMPLEX #90 tabs tizanidine 4 mg tablet 4 mg PO Q8H PRN muscle spasticity 10/25/23 #90 tabs rosuvastatin 10 mg tablet See Rx Instructions .Route 10/27/23 .COMPLEX #30 tabs aspirin 81 mg tablet,delayed 81 mg PO DAILY 30 days #30 tabs 11/02/23 release atorvastatin 40 mg tablet 40 mg PO BEDTIME 30 days #30 tabs 11/02/23 ciprofloxacin HCl 500 mg tablet 250 mg (1/2 x 500 mg) PO 11/02/23 BID@0900,2100 5 days #10 tabs metoprolol succinate 50 mg 25 mg (1/2 x 50 mg) PO DAILY 30 11/02/23 tablet,extended release 24 hr days #15 tabs Allergies Allergy/AdvReac Type Severity Reaction Status Date / Time vancomycin Allergy Severe ALGY-Anaphy Verified 10/31/23 09:24 laxis Penicillins Allergy ALGY-Anaphy Verified 10/31/23 09:24 laxis sitagliptin [From Mar] AdvReac Mild ALGY-Rash Verified 10/31/23 09:24 penicilliin Allergy Severe ALGY-Anaphy Uncoded 10/31/23 09:24 laxis Review of Systems 2 Const: Denies: fever(s) or chills Card: Reports: chest pain Resp: Denies: dyspnea GI: Denies: abdominal pain : Denies: dysuria, urinary frequency or urinary urgency Musc: Denies: neck pain or back pain Skin/Breast: Denies: rash PFSH ED 2 PFSH: Medical History Cardiomyopathy Atrial flutter Abnormal mammogram of right breast Diabetes mellitus Hyperlipidemia Surgical History H/O mitral valve repair (07/2017) History of cardiac radiofrequency ablation (12/2017) Family History Grandmother Myocardial infarction Other Cancer Diabetes Lung disease Social History Smoking and tobacco/nicotine status: never used tobacco/nicotine Household members: spouse Marital status: Current occupational status: employed Physical Exam 2 Const: GENERAL APPEARANCE: cooperative ORIENTATION/CONSCIOUSNESS: Yes awake, Yes oriented to person, Yes oriented to place and Yes oriented to time HENMT: COMMON NORMALS: normocephalic, atraumatic and hearing grossly normal bilaterally HEAD & SCALP: normocephalic and atraumatic Resp: COMMON NORMALS: normal respiratory effort, No retractions, No use of accessory muscles and clear to auscultation bilaterally AUSCULTATION: clear to auscultation bilaterally Cardio: COMMON NORMALS: regular rate, regular rhythm and No murmurs present (Cardio) RATE: regular rate RHYTHM: regular rhythm GI: COMMON NORMALS: Soft to palpation and No hepatosplenomegaly present A USCULTATION: Yes normoactive bowel sounds PALPATION: Yes Soft to palpation, No Tenderness to palpation present (GI), No Guarding due to palpation present (GI) and Yes No hepatosplenomegaly present Extremity: COMMON NORMALS: normal to inspection, capillary refill normal, no clubbing, cyanosis or edema, no calf tenderness and no pedal edema Neuro: SENSORIUM/ORIENTATION: Yes oriented to person, Yes oriented to place and Yes oriented to time Skin: COMMON NORMALS: no rashes or lesions noted GENERAL SKIN EXAM: no rashes or lesions noted Course 2 Vital Signs: Vital signs: Vital Signs Temperature 97.9 F 11/02/23 13:45 Pulse Rate 105 H 11/02/23 13:45 Respiratory Rate 16 11/02/23 13:45 Blood Pressure 100/67 11/02/23 13:45 Pulse Oximetry 98 11/02/23 13:45 Oxygen Delivery Me thod Room Air 11/02/23 12:00 MDM - Chest Pain Medical Decision Making Patient has multiple risk factors including being diabetic hypertensive and hyperlipidemia. She has known history of atrial fibrillation with previous ablations. She also has a history of cardiomyopathy. EKG shows A-fib flutter she is given IV dose of metoprolol. Will place her in observation she has a heart score of 5 that require early cardiac evaluation. Previous myocardial perfusion scan in March 2022 on the chart reviewed showed nonischemic cardiomyopathy with moderate global hypokinesis EF of 36%. Discussed with hospitalist orders written. Rate is controlled around 100 while in bed with any activity rate goes up. Medical Records I reviewed the patient's medical records. Lab Data I reviewed the patient's lab results. 11/02/23 04:51 11/02/23 04:51 Radiology Impressions Chest X-Ray 11/01/23 15:29 IMPRESSION: No acute findings. Laboratory Results WBC 10.19 10^3/uL (3.29-11.43) 11/01/23 15:52 RBC 5.15 10^6/uL (3.85-5.65) 11/01/23 15:52 Hgb 14.50 g/dL (11.27-16.99) 11/01/23 15:52 Hct 44.7 % (36-47) 11/01/23 15:52 MCV 86.8 fl (85-98) 11/01/23 15:52 MCH 28.2 pg (27-33) 11/01/23 15:52 MCHC 32.4 g/dL (30-55) 11/01/23 15:52 RDW 12.9 % (12.1-15.1) 11/01/23 15:52 Plt Count 261 10^3/cmm (157-399) 11/01/23 15:52 MPV 9.9 fL (7.4-10.4) 11/01/23 15:52 Neut % (Auto) 56.2 % 11/01/23 15:52 Lymph % (Auto) 34.0 % 11/01/23 15:52 Greer % (Auto) 7.9 % 11/01/23 15:52 Eos % (Auto) 1.0 % 11/01/23 15:52 Baso % (Auto) 0.6 % 11/01/23 15:52 Neut # (Auto) 5.74 10^3/uL (1.8-7.7) 11/01/23 15:52 Lymph # (Auto) 3.5 10^3/uL (0.8-4.8) 11/01/23 15:52 Greer # (Auto) 0.8 10^3/uL (0.2-0.9) 11/01/23 15:52 Eos # (Auto) 0.1 10^3/uL (0.0-0.8) 11/01/23 15:52 Baso # (Auto) 0.1 10^3/uL (0.0-0.1) 11/01/23 15:52 Nucleated RBC % (auto) 0 % 11/01/23 15:52 Nucleated RBCs # 0.0 /100WBC 11/01/23 15:52 PT 13.50 SECONDS (12.1-14.9) 11/01/23 18:06 INR 1.00 (0.8-1.2) 11/01/23 18:06 Sodium 138 mmol/L (136-145) 11/01/23 15:52 Potassium 4.5 mmol/L (3.5-5.1) 11/01/23 15:52 Chloride 98 mmol/L (98-107) 11/01/23 15:52 Carbon Dioxide 26 mmol/L (22-29) 11/01/23 15:52 Anion Gap 18.5 (5-19) 11/01/23 15:52 BUN 22 mg/dL (6-20) H 11/01/23 15:52 Creatinine 1.2 mg/dL (0.5-0.9) H 11/01/23 15:52 GFR Calculation 47.0 mL/min (90-130) L 11/01/23 15:52 Glucose 113 mg/dL (65-115) 11/01/23 15:52 Estimat Average Glucose 154 11/01/23 15:52 Hemoglobin A1c 7.0 % (4.0-6.0) H 11/01/23 15:52 Calculated Osmolality 290 mOsm/kg (285-295) 11/01/23 15:52 Lactic Acid 0.9 mmol/L (0.5-2.2) 11/01/23 18:06 Calcium 9.6 mg/dL (8.5-10.5) 11/01/23 15:52 Total Bilirubin 0.9 mg/dL (0.15-1.2) 11/01/23 15:52 AST 18 U/L (0-32) 11/01/23 15:52 ALT 17 U/L (0-33) 11/01/23 15:52 Alkaline Phosphatase 150 U/L (35-105) H 11/01/23 15:52 Troponin T Baseline < 6 ng/L (0-10) 11/01/23 15:52 Troponin T 120 Minute 6.00 ng/L (0-10) 11/01/23 17:48 Delta Troponin T 0.17363 ABS# (0-10) 11/01/23 17:48 NT-Pro-B Natriuret Pep 173 pg/mL (0-125) H 11/01/23 15:52 Total Protein 8.1 g/dL (6.6-8.7) 11/01/23 15:52 Albumin 4.3 g/dL (3.5-5.2) 11/01/23 15:52 Globulin 3.8 g/dL (1.3-4.6) 11/01/23 15:52 Triglycerides 119 mg/dL (0-150) 11/01/23 15:52 Cholesterol 162 mg/dL (0-200) 11/01/23 15:52 LDL Cholesterol, Calc 89 mg/dL (50-129) 11/01/23 15:52 HDL Cholesterol 49 mg/dL (60-100) L 11/01/23 15:52 LDL/HDL Ratio 1.82 RATIO (0.00-3.22) 11/01/23 15:52 Cholesterol/HDL Ratio 3.31 mg/dL (0.0-4.40) 11/01/23 15:52 TSH 2.57 uIU/mL (0.27-4.20) 11/01/23 15:52 All radiology interpretation(s) finalized by discharge Clincial Decision Support The following clinical decision support tools were used to aid in care of the patient HEART Score -> History: Moderately Suspicious, EKG: Non-specific Changes, Age: 45-64 yrs, Risk Factors: >/=3 Risk Factors, Troponin: Baseline Trop <16 ng/L. Resulting HEART Score: 5. Discharge Plan Discharge Patient Disposition: Placed in Observation Admit Provider: Rosendo Duarte Clinical Impression: Chest pain, S/P patent foramen ovale closure, Non-ischemic cardiomyopathy, H/O mitral valve repair, Diabetes mellitus, Hyperlipidemia, Hypertension, Atrial flutter Discharge Diet: Cardiac Discharge Activity: Resume usual activity Coding Level of Care Code ED Floor Inspector for Joshua Segura
[2023-11-01] MEDS: metoprolol tartrate 1 mg/1 mL SDV 5 mL 2.5 MG IVP (17:25)
--- NOTE | 2023-11-01 17:29 | ECG_ITS ---
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 Measurements Intervals [place] Rate: 109 P: 0 [place]: 0 QRS: -79 QRSD: 89 T: 69 QT: 360 QTc: 486 Interpretive Statements ATRIAL FIBRILLATION WITH RAPID VENTRICULAR RESPONSE LOW QRS VOLTAGE IN EXTREMITY LEADS [QRS DEFLECTION < 0.5 mV IN LIMB LEADS] PATTERN CONSISTENT WITH PULMONARY DISEASE LEFT ANTERIOR FASCICULAR BLOCK [QRS AXIS <= -45, QR IN I, RS IN II] Compared to ECG 11/01/2023 15:30:19 Supraventricular tachycardia no longer present Electronically Signed On 11-01-2023 23:42:45 CDT by Skip Victor M.D. [email or web address] ( [employer] ).[id number]
--- NOTE | 2023-11-01 17:38 | USCV_ITS ---
Debbie Smith Age: 53 Gender: F : 1970 Exam Date: 11/01/2023 20:47 Ordering Phys: Rosendo Duarte MD Technologist: CAMMIE Exam Location: [facility] [place] Indication: chest pain. History of atrial fibrillation s/p ablations x 2, s/p MV valvuloplasty 2018. BP: 113 / 74 HR: 100 Rhythm: Mostly atrial fibrillation with some strings of sinus Technical Quality: Adequate MEASUREMENTS (Male / Female) Normal Values 2D ECHO LV Diastolic Diameter PLAX 3.8 cm 4.2 - 5.9 / 3.9 - 5.3 cm IVS Diastolic Thickness 1.5 cm 0.6 - 1.0 / 0.6 - 0.9 cm IVS Systolic Thickness 1.9 cm LVPW Diastolic Thickness 1.2 cm 0.6 - 1.0 / 0.6 - 0.9 cm LVPW Systolic Thickness 1.5 cm LVOT Diameter 2.0 cm LV Ejection Fraction 2D Teich 64.3 % LV Ejection Fraction MOD 4C 50.3 % LV Ejection Fraction MOD 2C 50.7 % LV Ejection Fraction 2C AL 53.6 % LA Diameter 3.5 cm Aorta at Sinotubular Diameter 3.1 cm IVC Diameter 1.5 cm M-MODE LA Ao Ratio MM 1.3 AV Cusp Separation MM 2.0 cm DOPPLER AV Peak Velocity 103.0 cm/s LVOT Peak Velocity 60.0 cm/s AV Area Cont Eq vti 2.1 cm squared AV Area Cont Eq pk 1.8 cm squared MV Peak Velocity 147.0 cm/s MV Area PHT 4.5 cm squared Mitral E to A Ratio 719.0 TR Peak Velocity 267.0 cm/s TR Peak Gradient 28.5 mmHg TV Peak E Velocity 59.0 cm/s Right Atrial Pressure 3.0 mmHg Pulmonary Artery Systolic Pressu 31.5 mmHg PV Peak Velocity 91.0 cm/s FINDINGS Left Ventricle Diffuse hypokinesis of left ventricle with anejection fraction of 45%.mild left ventricular hypertrophy. Grade II/IV diastolic dysfunction, moderately elevated filling pressures. Right Ventricle Normal right ventricular size and systolic function. Right Atrium Mildly increased right atrial size. Left Atrium Mildly increased left atrial size. Mitral Valve Mitral annular ring in place. Mild-moderate mitral valve regurgitation. Aortic Valve Mild aortic valve regurgitation. Thickened aortic valve. Tricuspid Valve Mild tricuspid valve regurgitation. Pulmonic Valve Mild pulmonary valve regurgitation. Pericardium No pericardial effusion. Aorta Normal aortic annulus size. IVC Normal inferior vena cava. CONCLUSIONS Diffuse hypokinesis of left ventricle with anejection fraction of 45% Mild left ventricular hypertrophy. Grade II/IV diastolic dysfunction, moderately elevated filling pressures. Mild biatrial enlargement. Mitral annular ring in place. Mild-moderate mitral valve regurgitation. Mild aortic valve regurgitation. Thickened aortic valve. Mild tricuspid valve regurgitation. Mild pulmonary valve regurgitation. There is no pericardial effusion. Compared to the previous study from 08/30/2022, there may not be a significant change Dr Skip Victor MD [facility] (Electronically Signed) Final Date: 02 November 2023 11:49 S
--- NOTE | 2023-11-01 17:40 | P.HP_ITS ---
Providers/Chief Complaint 2 Primary Care Provider: Georgina Bonds NP Chief Complaint: cp History of Present Illness Debbie Smith is a 53 year old female hypertension, hyperlipidemia, s/p mitral valve repair with Abreu Physio II 29 mm annuloplasty ring, left-sided MAZE, left atrial appendage excision ,? PFO closure, atrial flutter on Coreg being transition to metoprolol, history of cardiomyopathy last echo showing EF of 25 to 30%, currently not insulin insulin-dependent type 2 diabetes mellitus, but was on the insulin pump a few months ago, transitioned off due to improving A1c on Mounjaro, last stress test 03/19/2022 low probability, who presents to [facility] due to multiple complaints, chest pain, syncope, presyncope, lightheadedness, orthostatic hypotension. Patient is on that she is being referred to [place], for ICD placement, patient tells me that for the last few weeks, she has been having right-sided chest pain, rating to the right shoulder, feeling as if she is wearing a backpack, she is also reported as syncopal episode, associate with a syncopal episodes she developed heart rates up as high as 140s, she denies shortness of breath no diaphoresis, does report intermittent lightheadedness, she saw Peyton Vela yesterday, and the plan was to transition her from Coreg to metoprolol, she has not picked up the metoprolol yet but has using Coreg this morning, she tells that this morning she started developing chest discomfort but this was a bit different it was on the left side of the chest, she tells me that it was under the left breast, associated with chest palpitations, she has not had any recurrent syncopal symptoms, in the ER she was found to have atrial fibrillation, heart rates as high as 120, is being given 2.5 mg of IV metoprolol Review of Systems 2 Const: Denies: fever(s) Eyes: Denies: change in vision Card: Reports: chest pain, palpitations, lightheadedness and pre-syncope; Denies: dyspnea on exertion GI: Denies: abdominal pain : Denies: flank pain or difficulty voiding Medications/Allergies Home Medications Medication Instructions Recorded Confirmed Last Taken Type acetaminophen 500 mg tablet 1,000 mg PO Q6H PRN Pain 03/19/22 10/31/23 Unknown History Dexcom G6 Transmitter #2 ea 02/18/23 10/31/23 Unknown Rx (blood-glucose transmitter) insulin lispro 100 unit/mL See Rx Instructions .Route 02/18/23 10/31/23 Unknown Rx subcutaneous solution (Humalog .COMPLEX 90 days #90 mL U-100 Insulin) insulin pump cart,automated,BT #15 ea 02/18/23 10/31/23 Unknown Rx (Omnipod 5 G6 Pods (Gen 5) subcutaneous cartridge) blood-glucose sensor (Dexcom G6 #9 ea 05/26/23 10/31/23 Unknown Rx Sensor device) ondansetron 4 mg disintegrating See Rx Instructions .Route 05/26/23 10/31/23 Unknown Rx tablet .COMPLEX #27 tabs blood-glucose transmitter (Dexcom #1 ea 06/09/23 10/31/23 Unknown Rx G6 Transmitter device) sacubitril 97 mg-valsartan 103 mg 1 tab PO BID #180 tabs 06/13/23 10/31/23 Unknown Rx tablet (Entresto) tirzepatide 12.5 mg/0.5 mL 12.5 mg (0.5 mL) SUBCUT Q7D #2 mL 07/01/23 10/31/23 Unknown Rx subcutaneous pen injector (Mounjaro) tirzepatide 15 mg/0.5 mL See Rx Instructions .Route 08/01/23 10/31/23 Unknown Rx subcutaneous pen injector .COMPLEX #6 mL (Mounjaro) furosemide 20 mg tablet 20 mg PO DAILY PRN edema #90 tabs 08/09/23 10/31/23 Unknown Rx potassium chloride 10 mEq 10 meq PO DAILY PRN use with lasix 08/09/23 10/31/23 Unknown Rx capsule,extended release #90 caps spironolactone 25 mg tablet See Rx Instructions .Route 08/22/23 10/31/23 Unknown Rx .COMPLEX #90 tabs tizanidine 4 mg tablet 4 mg PO Q8H PRN muscle spasticity 10/25/23 10/31/23 Unknown Rx #90 tabs rosuvastatin 10 mg tablet See Rx Instructions .Route 10/27/23 10/31/23 Unknown Rx .COMPLEX #30 tabs metoprolol succinate 50 mg 50 mg PO BID #60 tabs 10/31/23 10/31/23 Unknown Rx tablet,extended release 24 hr Allergies Allergy/AdvReac Type Severity Reaction Status Date / Time vancomycin Allergy Severe ALGY-Anaphy Verified 10/31/23 09:24 laxis Penicillins Allergy ALGY-Anaphy Verified 10/31/23 09:24 laxis sitagliptin [From Alivia] AdvReac Mild ALGY-Rash Verified 10/31/23 09:24 penicilliin Allergy Severe ALGY-Anaphy Uncoded 10/31/23 09:24 laxis PFSH Acute 2 PFSH: Medical History Cardiomyopathy Atrial flutter Abnormal mammogram of right breast Diabetes mellitus Hyperlipidemia Surgical History H/O mitral valve repair (07/2017) History of cardiac radiofrequency ablation (12/2017) Family History Grandmother Myocardial infarction Other Cancer Diabetes Lung disease Social History Smoking and tobacco/nicotine status: never used tobacco/nicotine Household members: spouse Marital status: Current occupational status: employed Vitals/I&O/Wt Last Vital Signs Temp 98.0 F 11/01/23 15:37 Pulse 107 H 11/01/23 15:37 Resp 16 11/01/23 15:37 BP 113/74 11/01/23 15:37 Pulse Ox 100 11/01/23 15:37 O2 Del Method Room Air 11/01/23 15:37 Weight last 48 hrs Weight 71.214 kg Physical Exam 2 Const: COMMON NORMALS: no acute distress and patient oriented x3 HENMT: COMMON NORMALS: normocephalic HEAD & SCALP: normocephalic Neck/C-Spine: COMMON NORMALS: no JVD Resp: COMMON NORMALS: normal respiratory effort, No retractions, No use of accessory muscles and clear to auscultation bilaterally AUSCULTATION: clear to auscultation bilaterally Cardio: COMMON NORMALS: no JVD, regular rate, regular rhythm, S1 normal heart sound present and S2 normal heart sound present RATE: regular rate RHYTHM: regular rhythm HEART SOUNDS: S1 normal heart sound present and S2 normal heart sound present GI: COMMON NORMALS: Normal to inspection, nondistended, normoactive bowel sounds present, Soft to palpation and non-tender Extremity: COMMON NORMALS: no calf tenderness and no pedal edema Neuro: COMMON NORMALS: patient oriented x3, CN's II-XII intact bilaterally and moves all extremities Psych: COMMON NORMALS: mental status grossly normal Data 11/01/23 15:52 11/01/23 15:52 A&P Assessment and plan (1) Chest pain: Qualifiers: Chest pain type: unspecified Qualified Code(s): R07.9 - Chest pain, unspecified (2) Atrial flutter: Qualifiers: Atrial flutter type: typical Qualified Code(s): I48.3 - Typical atrial flutter (3) Diabetes mellitus: (4) Syncope: Plan Chest pain -March 19, 2022 ? IMPRESSIONS 1. Myocardial perfusion imaging is normal. Attenuation artifact in apical wall. 2. The left ventricular ejection fraction is moderately reduced with a value of 36%. Moderate global hypokinesis. 3. The perfusion pattern is consistent with a non-ischemic cardiomyopathy. 4. EKG portion of the study will be reported separately. ? Plan ? Continue aspirin - statin -Will transition to metoprolol 25 mg daily -Serial EKGs, serial troponins, telemetry monitoring -Cardiac echo Syncopal episodes, with presyncope -Possibly orthostatic hypotension, check orthostatic vitals -Follow-up troponin series as above -Cardiac echo -Possibly polypharmacy -Metroprolol 25 mg daily Atrial flutter -Receiving metoprolol in the emergency room -Start Metroprolol 25 mg daily, will titrate from there ? TSH -magnesium level Full code -Lovenox for DVT prophylaxis Attestations 2 Medical Necessity Statement*: Patient requires hospitalization, outpatient with observation, for chest pain, presyncope, syncope Diagnoses Chest pain, unspecified type R07.9 Chest pain type: unspecified Typical atrial flutter I48.3 Atrial flutter type: typical Diabetes mellitus E11.9 Syncope R55
[2023-11-01 18:11] LABS: Troponin 5 2HR Delta 0.00001 ABS# (0-10)
[2023-11-01 18:31] LABS: Lactic Sepsis W/Reflex 0.9 mmol/L (0.5-2.2)
[2023-11-01 19:10] VITALS: BP 121/87; PULSE 94; RESP 14; O2SAT 98
[2023-11-01 19:24] VITALS: BP 112/90; PULSE 101; RESP 13; O2SAT 98
[2023-11-01 19:42] VITALS: BP 112/90; PULSE 101; RESP 13; TEMP 36.7; O2SAT 98
[2023-11-01 19:59] VITALS: PULSE 119
[2023-11-01 20:36] VITALS: BP 121/78; BP 122/78; BP 137/96; PULSE 101; PULSE 110; PULSE 90; RESP 17; TEMP 36.6; O2SAT 99; BMI 26.2
[2023-11-01 20:41] LABS: Chol HDL Ratio 3.31 mg/dL (0.0-4.40); Cholesterol 162 mg/dL (0-200); HDL Cholesterol 49 mg/dL (60-100); LDL Cholesterol Calculated 89 mg/dL (50-129); LDL HDL Ratio 1.82 RATIO (0.00-3.22); Thyroid Stimulating Hormone 2.57 uIU/mL (0.27-4.20); Triglycerides 119 mg/dL (0-150)
--- NOTE | 2023-11-01 21:29 | ECG_ITS ---
[facility] Test Date: 2023-11-01 Pat Name: Debbie Smith Department: Room: 263 Gender: Female [employer]: : [id number] Requested By: Elsy Bedolla Order Number: [id number] Ilana MD: Skip Victor M.D. Measurements Intervals [place] Rate: 120 P: 0 TX: 0 QRS: -48 QRSD: 89 T: 125 QT: 332 QTc: 469 Interpretive Statements ATRIAL FIBRILLATION WITH RAPID VENTRICULAR RESPONSE PATTERN CONSISTENT WITH PULMONARY DISEASE POSSIBLE RIGHT VENTRICULAR CONDUCTION DELAY [RSR (QR) IN V1/V2] LEFT ANTERIOR FASCICULAR BLOCK [QRS AXIS <= -45, QR IN I, RS IN II] ABNORMAL QRS-T ANGLE [QRS-T AXIS DIFFERENCE > 60] Compared to ECG 11/01/2023 17:33:53 No significant changes Electronically Signed On 11-01-2023 23:43:44 CDT by Skip Victor M.D. [id number]
[2023-11-01] MEDS: metoprolol succinate ER (24 HR) 25 mg Tablet PO (22:08)
[2023-11-01] MEDS: atorvastatin 40 mg Tablet PO (22:08)
[2023-11-01] MEDS: sacubitril/valsartan 24-26 mg Tablet 4 EACH PO (22:08)
[2023-11-01] MEDS: enoxaparin 40 mg/0.4 mL Syringe SUBCUT (22:08)
[2023-11-01] MEDS: aspirin 81 mg Chew Tablet 324 MG PO ×2 (22:08→23:25)
[2023-11-01] MEDS: pantoprazole 40 mg SDV IVP (22:09)
[2023-11-01 22:13] LABS: Troponin 5 6HR Delta 0.00001 ng/L (0-12)
[2023-11-01 22:16] LABS: Charge for UA Resulting for Rev
[2023-11-01 22:17] LABS: Bilirubin Urine Negative (Negative); Blood Urine Negative (Negative); Glucose Urine UA Negative (Normal); Ketones Urine Negative (Negative); Leukocyte Esterase Urine 2+ (Negative); Nitrate Urine Negative (Negative); Protein Urine Negative (Negative); Specific Gravity, Urine 1.012 (1.005-1.030); Urine Appearance Clear (CLEAR); Urine Color Yellow (Yellow)
[2023-11-01 22:19] LABS: Bacteria Urine 1+ /hpf; RBC Urine 0-2 /hpf (0-2); WBC Urine 21-50 /hpf (0-5)
[2023-11-01 22:30] LABS: Add Urine Culture? Yes
--- NOTE | 2023-11-01 23:26 | PC.NURSE ---
Error in pulling aspirin from [employer]. returned/wasted and overrode for 81mgx4. orders linked.
[2023-11-02] VITALS (7 sets, daily range): BP systolic 69–117; BP diastolic 52–77; PULSE 79–134; RESP 16–17; TEMP 36.4–36.7; O2SAT 95–98
[2023-11-02 00:08] LABS: Estmated Average Glucose 154
[2023-11-02 05:20] LABS: Basophils % 0.5 %; Eosinophils # 0.1 10^3/uL (0.0-0.8); Eosinophils % 1.3 %; Hematocrit 42.3 % (36-47); Lymphocytes # 3.7 10^3/uL (0.8-4.8); Lymphocytes % 42.4 %; Mean Corpuscular HGB Conc 32.9 g/dL (30-55); Mean Corpuscular Hemoglobin 28.7 pg (27-33); Mean Corpuscular Volume 87.2 fl (85-98); Mean Platelet Volume 10.7 fL (7.4-10.4); Monocytes # 0.9 10^3/uL (0.2-0.9); Monocytes % 9.9 %; Neutrophils # 3.96 10^3/uL (1.8-7.7); Neutrophils % 45.8 %; Nucleated Red Blood Cells % 0 %; Platelet Count 176 10^3/cmm (157-399); Red Blood Count 4.85 10^6/uL (3.85-5.65); Red Cell Distribution Width 12.8 % (12.1-15.1); White Blood Count 8.65 10^3/uL (3.29-11.43)
[2023-11-02 05:49] LABS: Blood Urea Nitrogen 21 mg/dL (6-20); Calcium 8.8 mg/dL (8.5-10.5); Carbon Dioxide 24 mmol/L (22-29); Chloride 102 mmol/L (98-107); Creatinine Clr Calc Pharmacy 64.4577; Glucose 99 mg/dL (65-115); Osmolality Calculated 289 mOsm/kg (285-295); Sodium 138 mmol/L (136-145)
[2023-11-02 05:53] LABS: Anion Gap 16.2 (5-19); Potassium 4.2 mmol/L (3.5-5.1)
[2023-11-02] MEDS: spironolactone 25 mg Tablet PO (08:52)
[2023-11-02] MEDS: sacubitril/valsartan 24-26 mg Tablet 4 EACH PO (08:52)
[2023-11-02] MEDS: aspirin 81 mg EC Tablet PO (08:52)
[2023-11-02] MEDS: atorvastatin 40 mg Tablet PO (08:52)
--- NOTE | 2023-11-02 09:06 | PC.CHAP ---
Pastoral Care Encounter/Spiritual Assessment Type of Contact [] Declined practicing urologist visit [] Patient/Family/Request visit [] Outpatient visit [] Follow-up visit [] Physician referral [] Code/Alert [x] Routine visit [] Staff referral [] Actively dying [] Patient sleeping [] Family support [] [] Out of room [] Palliative care [] [] Receiving care in room [] Pre-surgical visit [] Trauma [] Long length of stay [] ICU visit [] Other: Relational/Emotional Strength [x] Patient feels connected with others/family/visitors/staff [] Distress [] Loneliness/isolation [] Abandonment Spirituality of Patient [x] Person of Amanda [] Attends Bahai of their Amanda [x] Believes in Prayer [] Reads Bible or Religion materials [] There are Spiritual issues to be addressed Metal Cutter Interventions [x] Prayer [x] Active listening [] Non-anxious presence [x] Spiritual/emotional support [] Crisis/trauma care [] Spiritual counseling [] Bereavement support [] Provided bereavement packet [] Provided Bible/devotional materials [] Provided toy/stuffed animal, coloring book to patient or family member [] Provided Communion [] Anointing/[place] [] Salvation [x] Completed spiritual assessment [] Other: Impact on Illness or Injury [] Angry [] Fearful [] Anxious [] Often cries [] Exhaustion [] Unable to work [] Unable to attend methodist [] Unable to walk/stand [] Unable to read [] Unable to drive [] Unable to eat/drink [] Unable to sleep [] Unable to be with family [] Patient intubated [] Other: Summary Time spent with patient 5 min
[2023-11-02] MEDS: ciprofloxacin 500 mg Tablet 250 MG PO (09:36)
--- NOTE | 2023-11-02 11:11 | P.DS_ITS ---
Discharge Providers Date of Admission: 11/01/23 18:44 Date of Discharge: November 02, 2023 Attending Provider at Admission: Rosendo Duarte MD Attending Provider at Discharge: Rosendo Duarte MD Primary Care Provider: Georgina Bonds NP Diagnoses at Discharge Discharge Diagnosis (1) Chest pain: Status: Acute Qualifiers: Chest pain type: unspecified Qualified Code(s): R07.9 - Chest pain, unspecified (2) Atrial flutter: Status: Acute Qualifiers: Atrial flutter type: typical Qualified Code(s): I48.3 - Typical atrial flutter (3) Diabetes mellitus: Status: Acute (4) Syncope: Status: Acute Reason for Visit Reason for Visit: cp Hospital Course Hospital Course Debbie Smith is a 53 year old female hypertension, hyperlipidemia, s/p mitral valve repair with Abreu Physio II 29 mm annuloplasty ring, left-sided MAZE, left atrial appendage excision ,? PFO closure, atrial flutter on Coreg being transition to metoprolol, history of cardiomyopathy last echo showing EF of 25 to 30%, currently not insulin insulin-dependent type 2 diabetes mellitus, but was on the insulin pump a few months ago, transitioned off due to improving A1c on Mounjaro, last stress test 03/19/2022 low probability, who presents to [facility] due to multiple complaints, chest pain, syncope, presyncope, lightheadedness, orthostatic hypotension. Patient is on that she is being referred to [place], for ICD placement, patient tells me that for the last few weeks, she has been having right-sided chest pain, rating to the right shoulder, feeling as if she is wearing a backpack, she is also reported as syncopal episode, associate with a syncopal episodes she developed heart rates up as high as 140s, she denies shortness of breath no diaphoresis, does report intermittent lightheadedness, she saw Aaron Vela yesterday, and the plan was to transition her from Coreg to metoprolol, she has not picked up the metoprolol yet but has using Coreg this morning, she tells that this morning she started developing chest discomfort but this was a bit different it was on the left side of the chest, she tells me that it was under the left breast, associated with chest palpitations, she has not had any recurrent syncopal symptoms, in the ER she was found to have atrial fibrillation, heart rates as high as 120, is being given 2.5 mg of IV metoprolol Chest pain -March 19, 2022 stress test ? IMPRESSIONS 1. Myocardial perfusion imaging is normal. Attenuation artifact in apical wall. 2. The left ventricular ejection fraction is moderately reduced with a value of 36%. Moderate global hypokinesis. 3. The perfusion pattern is consistent with a non-ischemic cardiomyopathy. 4. EKG portion of the study will be reported separately. -She was monitored as inpatient for 24 hours ? No recurrent chest pain ? No clinically significant troponin leak, EKG no acute ST-T wave changes ? Cardiac echo CONCLUSIONS Diffuse hypokinesis of left ventricle with anejection fraction of 45% Mild left ventricular hypertrophy. Grade II/IV diastolic dysfunction, moderately elevated filling pressures. Mild biatrial enlargement. Mitral annular ring in place. Mild-moderate mitral valve regurgitation. Mild aortic valve regurgitation. Thickened aortic valve. Mild tricuspid valve regurgitation. Mild pulmonary valve regurgitation. There is no pericardial effusion. -Chest pain symptoms seem atypical -Spoke to cardiology, discussed patient's clinical case, recommended to not repeat stress testing for now, recommended medical management with outpatient follow-up with cardiology -Nonetheless was monitored as inpatient remained chest pain-free, ambulating without significant symptomatology, no telemetry events ? Nonetheless discharged on aspirin, statin, beta-qian ? Patient was advised if she has any recurrent chest pain to go to the emergency room Patient A-fib with RVR, requiring IV metoprolol in the emergency room, heart rates were under control with metoprolol p.o., discharged with close follow-up with cardiology as outpatient, she has had left atrial appendage excision During hospitalization, patient was found to have a UTI discharged on ciprofloxacin During her hospitalization she was found to have orthostatic hypotension -Patient reports a chronic history of orthostatic hypotension -Feeling lightheaded, dizzy, presyncopal and syncopal symptoms at times when changing position -She tells me that she is dealt with this for a few months, she knows that wh enever she changes positions or ambulates she has to ambulate with care -We had a detailed discussion that given her EF of 45% this is a factor, -Now that she is on metoprolol this also will play a significant factor -And morbidity and mortality associate with falls -We discussed ambulating with care, compression stockings, -Certainly if this continues to happen, options are available to her include droxidopa -Other options are midodrine however the issue with this will be with her low EF, risk of CHF exacerbations We also discussed with her that on exertion she frequently feels short of fausto ath, becomes tachycardic this could be A-fib with RVR with exertion that is developing, will have to be monitored closely as outpatient, Physical Exam Const: COMMON NORMALS: no acute distress and patient oriented x3 Resp: COMMON NORMALS: normal respiratory effort, No retractions, No use of accessory muscles and clear to auscultation bilaterally AUSCULTATION: clear to auscultation bilaterally Cardio: COMMON NORMALS: regular rate, regular rhythm, S1 normal heart sound present and S2 normal heart sound present RATE: regular rate RHYTHM: regular rhythm HEART SOUNDS: S1 normal heart sound present and S2 normal heart sound present GI: COMMON NORMALS: Normal to inspection, nondistended, normoactive bowel sounds present, Soft to palpation and non-tender PALPATION: Yes Soft to palpation Extremity: COMMON NORMALS: no pedal edema Neuro: COMMON NORMALS: patient oriented x3 Psych: COMMON NORMALS: mental status grossly normal Discharge Data Studies Completed and Pending Completed Studies During Hospitalization Category Date Time Status XR chest 1V portable [id number] Urgent Exams 11/01/23 15:29 Completed Pending at discharge Category Date Time Status Urine Culture Routine Lab 11/01/23 22:00 Received CV. echo complete* [id number] Stat Ultrasound 11/01/23 17:38 Taken Radiology Impressions Chest X-Ray 11/01/23 15:29 IMPRESSION: No acute findings. Laboratory Results WBC 8.65 10^3/uL (3.29-11.43) 11/02/23 04:51 RBC 4.85 10^6/uL (3.85-5.65) 11/02/23 04:51 Hgb 13.90 g/dL (11.27-16.99) 11/02/23 04:51 Hct 42.3 % (36-47) 11/02/23 04:51 MCV 87.2 fl (85-98) 11/02/23 04:51 MCH 28.7 pg (27-33) 11/02/23 04:51 MCHC 32.9 g/dL (30-55) 11/02/23 04:51 RDW 12.8 % (12.1-15.1) 11/02/23 04:51 Plt Count 176 10^3/cmm (157-399) D 11/02/23 04:51 MPV 10.7 fL (7.4-10.4) H 11/02/23 04:51 Neut % (Auto) 45.8 % 11/02/23 04:51 Lymph % (Auto) 42.4 % 11/02/23 04:51 [place] % (Auto) 9.9 % 11/02/23 04:51 Eos % (Auto) 1.3 % 11/02/23 04:51 Baso % (Auto) 0.5 % 11/02/23 04:51 Neut # (Auto) 3.96 10^3/uL (1.8-7.7) 11/02/23 04:51 Lymph # (Auto) 3.7 10^3/uL (0.8-4.8) 11/02/23 04:51 [place] # (Auto) 0.9 10^3/uL (0.2-0.9) 11/02/23 04:51 Eos # (Auto) 0.1 10^3/uL (0.0-0.8) 11/02/23 04:51 Baso # (Auto) 0.0 10^3/uL (0.0-0.1) 11/02/23 04:51 Nucleated RBC % (auto) 0 % 11/02/23 04:51 Nucleated RBCs # 0.0 /100WBC 11/02/23 04:51 PT 13.50 SECONDS (12.1-14.9) 11/01/23 18:06 INR 1.00 (0.8-1.2) 11/01/23 18:06 Sodium 138 mmol/L (136-145) 11/02/23 04:51 Potassium 4.2 mmol/L (3.5-5.1) 11/02/23 04:51 Chloride 102 mmol/L (98-107) 11/02/23 04:51 Carbon Dioxide 24 mmol/L (22-29) 11/02/23 04:51 Anion Gap 16.2 (5-19) 11/02/23 04:51 BUN 21 mg/dL (6-20) H 11/02/23 04:51 Creatinine 1.0 mg/dL (0.5-0.9) H 11/02/23 04:51 GFR Calculation 58.0 mL/min (90-130) L 11/02/23 04:51 Glucose 99 mg/dL (65-115) 11/02/23 04:51 Estimat Average Glucose 154 11/01/23 15:52 Hemoglobin A1c 7.0 % (4.0-6.0) H 11/01/23 15:52 Calculated Osmolality 289 mOsm/kg (285-295) 11/02/23 04:51 Lactic Acid 0.9 mmol/L (0.5-2.2) 11/01/23 18:06 Calcium 8.8 mg/dL (8.5-10.5) 11/02/23 04:51 Magnesium 2.0 mg/dL (1.7-2.3) 11/02/23 04:51 Total Bilirubin 0.9 mg/dL (0.15-1.2) 11/01/23 15:52 AST 18 U/L (0-32) 11/01/23 15:52 ALT 17 U/L (0-33) 11/01/23 15:52 Alkaline Phosphatase 150 U/L (35-105) H 11/01/23 15:52 Troponin T Baseline < 6 ng/L (0-10) 11/01/23 15:52 Troponin T 120 Minute 6.00 ng/L (0-10) 11/01/23 17:48 Delta Troponin T 0.37677 ABS# (0-10) 11/01/23 17:48 Troponin T Hi Sens 6Hr 6.00 ng/L (0-10) 11/01/23 21:34 Troponin T Hi Sens 6Hr Delta 0.87365 ng/L (0-12) 11/01/23 21:34 NT-Pro-B Natriuret Pep 173 pg/mL (0-125) H 11/01/23 15:52 Total Protein 8.1 g/dL (6.6-8.7) 11/01/23 15:52 Albumin 4.3 g/dL (3.5-5.2) 11/01/23 15:52 Globulin 3.8 g/dL (1.3-4.6) 11/01/23 15:52 Triglycerides 119 mg/dL (0-150) 11/01/23 15:52 Cholesterol 162 mg/dL (0-200) 11/01/23 15:52 LDL Cholesterol, Calc 89 mg/dL (50-129) 11/01/23 15: HDL Cholesterol 49 mg/dL (60-100) L 11/01/23 15:52 LDL/HDL Ratio 1.82 RATIO (0.00-3.22) 11/01/23: Cholesterol/HDL Ratio 3.31 mg/dL (0.0-4.40) 11/01/23 15:52 TSH 2.57 uIU/mL (0.27-4.20) 11/01/23 15:52 Urine Color Yellow (Yellow) 11/01/23 22:00 Urine Appearance Clear (CLEAR) 11/01/23 22:00 Urine pH 8.0 (5-7) A 11/01/23 22:00 Ur Specific [place] 1.012 (1.005-1.030) 11/01/23 22:00 Urine Protein Negative (Negative) 11/01/23 22:00 Urine Glucose (UA) Negative (Normal) 11/01/23 22:00 Urine Ketones Negative (Negative) 11/01/23 22:00 Urine Blood Negative (Negative) 11/01/23 22:00 Urine Nitrate Negative (Negative) 11/01/23 22:00 Urine Bilirubin Negative (Negative) 11/01/23 22:00 Urine Urobilinogen 1.0 mg/dL (Negative) 11/01/23 22:00 Ur Leukocyte Esterase 2+ (Negative) A 11/01/23 22:00 Urine RBC 0-2 /hpf (0-2) 11/01/23 22:00 Urine WBC 21-50 /hpf (0-5) H 11/01/23 22:00 Ur Squamous Epith Cells 6-10 /hpf (0-5) 11/01/23 22:00 Amorphous Sediment Not Reportable 11/01/23 22:00 Urine Bacteria 1+ /hpf (NONE) H 11/01/23 22:00 Hyaline Casts 0.40 /lpf 11/01/23 22:00 Vitals Last Vital Signs Temp 97.5 F L 11/02/23 08:00 Pulse 79 11/02/23 08:00 Resp 17 11/02/23 08:00 BP 101/71 08/21/24 08:00 Pulse Ox 95 11/02/23 08:00 O2 Del Method Room Air 11/02/23 08:00 Discharge Plan Discharge Patient Disposition: Home Condition: Stable Prescriptions: New atorvastatin 40 mg Tablet 40 mg PO BEDTIME 30 Days Qty: 30 0RF ciprofloxacin HCl 500 mg Tablet 250 mg PO BID@0900,2100 5 Days Qty: 10 0RF aspirin 81 mg Tablet,Delayed Release (Dr/Ec) 81 mg PO DAILY 30 Days Qty: 30 0RF Continued (DME) Dexcom G6 Transmitter Device See Rx Instructions .Route Qty: 1 0RF Rx Instructions: As directed (DME) Dexcom G6 Transmitter Device See Rx Instructions .Route Qty: 2 2RF Rx Instructions: Change every 90 days (DME) Omnipod 5 G6 Pods (Gen 5) Cartridge See Rx Instructions .ROUTE .COMPLEX Qty: 15 2RF Dose Instruction: USE DIRECTED EVERY OTHER DAY Rx Instructions: USE DIRECTED EVERY OTHER DAY ondansetron 4 mg tablet,disintegrating See Rx Instructions .ROUTE .COMPLEX Qty: 27 1RF Dose Instruction: DISSOLVE 1 TABLET ON TONGUE EVERY 8 HOURS NEEDED FOR NAUSEA AND VOMITING FOR 30 DAYS Rx Instructions: DISSOLVE 1 TABLET ON TONGUE EVERY 8 HOURS NEEDED FOR NAUSEA AND VOMITING FOR 30 DAYS (DME) Dexcom G6 Sensor Device See Rx Instructions .ROUTE .COMPLEX Qty: 9 0RF Dose Instruction: CHANGE EVERY 10 DAYS Rx Instructions: CHANGE EVERY 10 DAYS Entresto 97-103 mg tablet 1 tab PO BID Qty: 180 1RF Mounjaro 15 mg/0.5 mL pen injector See Rx Instructions .ROUTE .COMPLEX Qty: 6 1RF Dose Instruction: INJECT 15 MG SUBCUTANEOUSLY EVERY 7 DAYS FOR 1 MONTH AND CONTINUE Rx Instructions: INJECT 15 MG SUBCUTANEOUSLY EVERY 7 DAYS furosemide 20 mg tablet 20 mg PO DAILY PRN (Reason: edema) Qty: 90 1RF potassium chloride 10 mEq capsule, extended release 10 meq PO DAILY PRN (Reason: use with lasix) Qty: 90 1RF spironolactone 25 mg tablet See Rx Instructions .ROUTE .COMPLEX Qty: 90 3RF Dose Instruction: TAKE 1 TABLET BY MOUTH EVERY DAY Rx Instructions: TAKE 1 TABLET BY MOUTH EVERY DAY rosuvastatin 10 mg tablet See Rx Instructions .ROUTE .COMPLEX Qty: 30 0RF Dose Instruction: TAKE 1 TABLET BY MOUTH IN THE MORNING Rx Instructions: TAKE 1 TABLET BY MOUTH IN THE MORNING acetaminophen 500 mg Tablet 1,000 mg PO Q6H PRN (Reason: Pain) Changed metoprolol succinate 50 mg tablet extended release 24 hr 25 mg PO DAILY 30 Days Qty: 15 3RF Rx Instructions: not picked up as of 11/01/23 Held tizanidine 4 mg tablet 4 mg PO Q8H PRN (Reason: muscle spasticity) Qty: 90 0RF Hold Instructions: Resume on 11/09/23. Discharge Orders: Discharge Order (Routine); Ordered 11/02/23 Ordered By: Rosendo Duarte Referrals: Georgina Bonds NP [Primary Care Provider] - 11/10/23 10:00 am Skip Victor MD [Physician] - 11/16/23 10:15 am (appointment with aaron delarosa) Discharge Diet: Cardiac Discharge Activity: Resume usual activity Patient Instructions: Ciprofloxacin (By mouth), Aspirin (By mouth), Atorvastatin (By mouth), Angina (DC), Opioid Safety Activity Restrictions/Additional Instructions: -if recurrent chest pain please go to emergency room -please ambulate and transfer with care due to orthostatic hypotension, syncope Discharge Attestations Time Spent in Discharge Care*: greater than 30 min Quality Metrics Clinical Quality Measures [ No reported AMI, CVA or VTE this stay] Coding Level of Care Code 11525 Total time (in minutes) for Discharge: 45 Diagnoses Chest pain, unspecified type R07.9 Chest pain type: unspecified Typical atrial flutter I48.3 Atrial flutter type: typical Diabetes mellitus E11.9 Syncope R55
--- NOTE | 2023-11-02 20:02 | PC.NURSE ---
discharge med Called Pt and notified her that hospitalist responded to her discharge med list which one to take and doctor order that she will take atorvastatin as new med and discontinue rosuvastatin from her home med per Dr. Duarte order.
== END 2023-11-02 13:45 | disposition home or self-care (01) ==
LOC: ER 17:09 → MEDSURG 18:45
PROVIDERS: Physician Assistant; Admitting Provider Family Medicine; Emergency Provider Family Medicine; PCP Nurse Practitioner Family; Visit Provider Family Medicine
DX: R07.9 Chest pain, unspecified (principal); I48.3 Typical atrial flutter; E11.9 Type 2 diabetes mellitus without complications; I10 Essential (primary) hypertension; E78.5 Hyperlipidemia, unspecified; Z79.4 Long term (current) use of insulin; N39.0 Urinary tract infection, site not specified; I48.91 Unspecified atrial fibrillation; I95.1 Orthostatic hypotension
CPT/HCPCS: 36415; 71045; 80048; 80053; 80061; 81003; 81015; 83036; 83605; 83735; 83880; 84443; 84484; 85025; 85610; 87086; 93005; 93306; 94664; 96372; 96374; 96375; 99285; G0378; J1650; J2470; J3490

== ENCOUNTER 2023-12-26 08:59 | Outpatient (CLI) | payer OTHER, SELFPAY ==
[2023-12-26 09:36] LABS: Estmated Average Glucose 148; Hemoglobin A1C 6.8 % (4.0-6.0)
[2023-12-26 09:41] LABS: Alanine Aminotransferase 21 U/L (0-33); Albumin Level 4.5 g/dL (3.5-5.2); Alkaline Phosphatase 176 U/L (35-105); Anion Gap 13.6 (5-19); Aspartate Amino Transferase 20 U/L (0-32); Blood Urea Nitrogen 21 mg/dL (6-20); Calcium 9.1 mg/dL (8.5-10.5); Carbon Dioxide 28 mmol/L (22-29); Chloride 104 mmol/L (98-107); Chol HDL Ratio 3.83 mg/dL (0.0-4.40); Cholesterol 184 mg/dL (0-200); Globulin 2.8 g/dL (1.3-4.6); Glomerular Filtration Rate 65.5 mL/min (90-130); Glucose 114 mg/dL (65-115); HDL Cholesterol 48 mg/dL (60-100); LDL Cholesterol Calculated 112 mg/dL (50-129); LDL HDL Ratio 2.33 RATIO (0.00-3.22); Osmolality Calculated 296 mOsm/kg (285-295); Potassium 4.6 mmol/L (3.5-5.1); Sodium 141 mmol/L (136-145); Total Bilirubin 0.8 mg/dL (0.15-1.2); Total Protein 7.3 g/dL (6.6-8.7); Triglycerides 121 mg/dL (0-150)
[2023-12-26 09:53] LABS: Creatinine Urine, Random 242 mg/dL (28-217); Microalbum Creatinine Ratio Ur 4 mg/dL (0-20); Microalbumin Random Urine 1 ug/dL (0-20)
== END 2023-12-26 09:00 | disposition home or self-care (01) ==
LOC: LAB 09:00
PROVIDERS: PCP Nurse Practitioner Family; Visit Provider Internal Medicine
DX: E11.9 Type 2 diabetes mellitus without complications (principal)
CPT/HCPCS: 36415; 80053; 80061; 82044; 83036

== ENCOUNTER 2024-06-25 08:54 | Outpatient (CLI) | payer OTHER, SELFPAY ==
[2024-06-25 09:59] LABS: Estmated Average Glucose 169; Hemoglobin A1C 7.5 % (4.0-6.0)
[2024-06-25 10:08] LABS: Alanine Aminotransferase 18 U/L (0-33); Albumin Level 4.2 g/dL (3.5-5.2); Alkaline Phosphatase 167 U/L (35-105); Anion Gap 14.4 (5-19); Aspartate Amino Transferase 17 U/L (0-32); Blood Urea Nitrogen 21 mg/dL (6-20); Calcium 9.1 mg/dL (8.5-10.5); Carbon Dioxide 26 mmol/L (22-29); Chloride 103 mmol/L (98-107); Chol HDL Ratio 3.67 mg/dL (0.0-4.40); Cholesterol 165 mg/dL (0-200); Globulin 3.2 g/dL (1.3-4.6); Glomerular Filtration Rate 57.8 mL/min (90-130); Glucose 122 mg/dL (65-115); HDL Cholesterol 45 mg/dL (60-100); LDL Cholesterol Calculated 103 mg/dL (50-129); LDL HDL Ratio 2.29 RATIO (0.00-3.22); Osmolality Calculated 292 mOsm/kg (285-295); Potassium 4.4 mmol/L (3.5-5.1); Sodium 139 mmol/L (136-145); Total Bilirubin 0.8 mg/dL (0.15-1.2); Total Protein 7.4 g/dL (6.6-8.7); Triglycerides 87 mg/dL (0-150)
[2024-06-25 10:13] LABS: Creatinine Urine, Random 254 mg/dL (28-217); Microalbum Creatinine Ratio Ur 8 mg/dL (0-20); Microalbumin Random Urine 2 ug/dL (0-20)
== END 2024-06-25 08:55 | disposition home or self-care (01) ==
PROVIDERS: Visit Provider Internal Medicine
DX: E11.9 Type 2 diabetes mellitus without complications (principal)
CPT/HCPCS: 36415; 80053; 80061; 82044; 83036

== ENCOUNTER 2024-09-21 09:24 | Outpatient (CLI) | payer OTHER, SELFPAY ==
[2024-09-21 10:34] LABS: Alanine Aminotransferase 18 U/L (0-33); Albumin Level 4.1 g/dL (3.5-5.2); Alkaline Phosphatase 164 U/L (35-105); Blood Urea Nitrogen 19 mg/dL (6-20); Calcium 9.2 mg/dL (8.5-10.5); Carbon Dioxide 25 mmol/L (22-29); Chloride 102 mmol/L (98-107); Globulin 3.4 g/dL (1.3-4.6); Glucose 112 mg/dL (65-115); Osmolality Calculated 291 mOsm/kg (285-295); Sodium 139 mmol/L (136-145); Total Protein 7.5 g/dL (6.6-8.7)
[2024-09-21 10:36] LABS: Creatinine Urine, Random 238 mg/dL (28-217); Microalbum Creatinine Ratio Ur 4 mg/dL (0-20)
[2024-09-21 10:36] LABS: Anion Gap 16.7 (5-19); Aspartate Amino Transferase 19 U/L (0-32); Potassium 4.7 mmol/L (3.5-5.1)
[2024-09-21 11:18] LABS: Estmated Average Glucose 163; Hemoglobin A1C 7.3 % (4.0-6.0)
== END 2024-09-21 09:25 | disposition home or self-care (01) ==
PROVIDERS: PCP Nurse Practitioner Family; Visit Provider Internal Medicine
DX: E11.9 Type 2 diabetes mellitus without complications (principal); E78.2 Mixed hyperlipidemia; Z86.79 Personal history of other diseases of the circulatory system
CPT/HCPCS: 36415; 80053; 82044; 83036